=== PATIENT | male | born 1950 | race Hispanic/Latino ===

== ENCOUNTER 2017-09-11 20:25 | Emergency (ER) | payer MEDICARE ==
[~2017-09-11 20:25] MED LIST: ACAR25TA2 PO; AMLO5TAB2 PO; ASPI-1181 PO; CLOP75TA32 PO; DUTA0.5C17 PO; ENAL20TA PO; LEVO50TA4 PO; LORA1TAB3 PO; METO50TA18 PO; PANT40TA PO; SIMV40TA5 PO; SPIR25TA6 PO; SUCR1TAB2 PO; TAMS0.4C32 PO
[2017-09-11 21:06] LABS: BASOPHILS % (AUTO) 0.4 % (0.0-5.0); EOSINOPHILS % (AUTO) 0.6 % (0.0-8.0); HEMATOCRIT 39.2 % (42-54); MEAN CORPUSCULAR HEMOGLOBIN 30.4 pg (27.0-33.0); MEAN CORPUSCULAR HGB CONC 34.3 g/dL (32.0-36.0); MEAN CORPUSCULAR VOLUME 88.5 fL (79-99); MONOCYTES % (AUTO) 7.5 % (3.0-13.0); NEUTROPHILS % (AUTO) 45.5 % (40.0-77.0); PLATELET COUNT (AUTO) 224 K/uL (130-400); RED BLOOD CELL COUNT(AUTO) 4.43 MIL/uL (4.50-6.20); RED CELL DISTRIBUTION WIDTH 14.7 % (11.0-15.5); WHITE BLOOD COUNT (AUTO) 8.3 K/uL (4.8-10.8)
[2017-09-11 21:17] LABS: CREATININE 1.1 mg/dL (0.5-1.5); INR 0.98 (0.85-1.15); POTASSIUM 3.8 mmol/L (3.5-5.1); PROTHROMBIN TIME 10.3 SEC (9.6-11.6)
[2017-09-11] MEDS ORDERED: ASPIRIN 81MG TAB.CHEW ONE (21:24)
[2017-09-11 21:32] LABS: ALBUMIN 3.3 g/dL (3.5-5.0); BILIRUBIN,TOTAL 0.4 mg/dL (0.2-1.0); CREATINE KINASE MB 2.4 ng/mL (0.5-3.6); TOTAL PROTEIN, SERUM 6.9 g/dL (6.0-8.3)
== END 2017-09-12 00:37 | disposition home or self-care (01) ==
LOC: EDH 20:25
DX: S29.012A Strain of muscle and tendon of back wall of thorax, initial encounter (principal); E11.9 Type 2 diabetes mellitus without complications; E78.5 Hyperlipidemia, unspecified; I10 Essential (primary) hypertension; E07.9 Disorder of thyroid, unspecified; Z88.0 Allergy status to penicillin; Z88.6 Allergy status to analgesic agent; Z88.5 Allergy status to narcotic agent; Z88.8 Allergy status to other drugs, medicaments and biological substances; X58.XXXA Exposure to other specified factors, initial encounter; Y93.89 Activity, other specified; Y92.89 Other specified places as the place of occurrence of the external cause; Y99.8 Other external cause status
CPT/HCPCS: 36415; 71045; 80053; 82550; 82553; 83874; 84484; 85025; 85610; 85730; 93005

== ENCOUNTER → 2018-01-30 | Outpatient (CLI) | payer MEDICARE ==
[~2018-01-30] MED LIST changes: -AMLO5TAB2 PO; +AMLO5TAB7 PO
== END | disposition home or self-care (01) ==
LOC: SHCH 07:56
PROVIDERS: ATTEND Internal Medicine Cardiovascular Disease
DX: I71.4 Abdominal aortic aneurysm, without rupture (principal)
CPT/HCPCS: 93978

== ENCOUNTER 2018-12-11 22:38 | Emergency (ER) | payer MEDICARE ==
[~2018-12-11 22:38] MED LIST changes: -AMLO5TAB7 PO; +ATOR40TA69 PO; +CLOP75TA14 PO; -CLOP75TA32 PO; -ENAL20TA PO; +LISI40TA4 PO; +LORA0.5T2 PO; -LORA1TAB3 PO; +MAGN400T40 PO; +METF-444 PO; +METO25TA6 PO; -METO50TA18 PO; +NITR0.4T SL; +POTA99TA21 PO; -SIMV40TA5 PO; -SPIR25TA6 PO; +TRAM50TA4 PO
[2018-12-11 23:29] LABS: CREATININE 1.1 mg/dL (0.5-1.5); POTASSIUM 3.7 mmol/L (3.5-5.1)
[2018-12-11 23:34] LABS: BASOPHILS % (AUTO) 0.3 % (0.0-5.0); EOSINOPHILS % (AUTO) 0.8 % (0.0-8.0); LYMPHOCYTES % (AUTO) 19.1 % (21.0-51.0); MEAN CORPUSCULAR HEMOGLOBIN 29.1 pg (27.0-33.0); MEAN CORPUSCULAR HGB CONC 33.7 g/dL (32.0-36.0); MEAN CORPUSCULAR VOLUME 86.4 fL (79-99); NEUTROPHILS % (AUTO) 70.8 % (40.0-77.0); NUCLEATED RED BLOOD CELLS 0.1 % (0.0-0.19); PLATELET COUNT (AUTO) 180 K/uL (130-400); RED BLOOD CELL COUNT(AUTO) 4.17 MIL/uL (4.50-6.20); RED CELL DISTRIBUTION WIDTH 15.7 % (11.0-15.5)
[2018-12-11 23:36] LABS: ALBUMIN 3.2 g/dL (3.5-5.0); BILIRUBIN,TOTAL 0.7 mg/dL (0.2-1.0); TOTAL PROTEIN, SERUM 6.8 g/dL (6.0-8.3)
[2018-12-11] MEDS ORDERED: IOHEXOL-350 75 ML VIAL IV ONE (23:55)
[2018-12-12] MEDS ORDERED: SODIUM CHLORIDE 0.9% 1000ML 1,000 ML IV ONE (01:11)
[2018-12-12 01:55] LABS: APPEARANCE,URINE Clear (CLEAR); BILIRUBIN,URINE Negative (NEGATIVE); COLOR,URINE Yellow (YELLOW); GLUCOSE, URINE (UA) TRACE mg/dL (NEGATIVE); KETONES,URINE Negative (NEGATIVE); LEUKOCYTE ESTERASE ,URINE Negative (NEGATIVE); NITRATE,URINE Negative (NEGATIVE); OCCULT BLOOD,URINE Negative (NEGATIVE); PROTEIN,URINE Negative (NEGATIVE); UROBILINOGEN,URINE 0.2 mg/dL (0.2-1.0)
[2018-12-12 02:36] LABS: RBC,URINE None Seen /HPF (0-1)
[2018-12-12 02:37] LABS: BACTERIA,URINE Rare /HPF (None Seen); WBC,URINE 0-1 /HPF (0-1)
== END 2018-12-12 03:10 | disposition home or self-care (01) ==
LOC: EDH 22:38
DX: I97.89 Other postprocedural complications and disorders of the circulatory system, not elsewhere classified (principal); G89.18 Other acute postprocedural pain; R10.9 Unspecified abdominal pain; E11.9 Type 2 diabetes mellitus without complications; E78.5 Hyperlipidemia, unspecified; I10 Essential (primary) hypertension; E07.9 Disorder of thyroid, unspecified; Z98.890 Other specified postprocedural states; Z88.5 Allergy status to narcotic agent; Z88.0 Allergy status to penicillin; Z88.8 Allergy status to other drugs, medicaments and biological substances; Y83.8 Other surgical procedures as the cause of abnormal reaction of the patient, or of later complication, without mention of misadventure at the time of the procedure; Y82.8 Other medical devices associated with adverse incidents
CPT/HCPCS: 36415; 74177; 80053; 81001; 83690; 85025; 93005; 99285; J7030; Q9967

== ENCOUNTER 2018-12-30 08:24 | Day surgery (SDC) | payer MEDICARE ==
[~2018-12-30] VITALS: Ht 172.7 cm; Wt 131.1 kg
[2018-12-30] VITALS (11 sets, daily range): BP systolic 50–169; BP diastolic 20–100
[~2018-12-30 08:24] MED LIST changes: +SODIUM CHLORIDE 0.9% 1000ML 1,000 ML IV ONE
[2018-12-30] MEDS ORDERED: PROPOFOL 10 MG/ML 20ML VIAL IV ONE ×2 (10:47)
[2018-12-30] MEDS ORDERED: EPINEPHRINE 1 MG/ML AMPULE ONE (10:51)
[2019-01-05] MEDS ORDERED: CLOP75TA14 PO (13:39)
[2019-01-05] MEDS ORDERED: APIX5TAB PO (13:40)
[2019-01-05] MEDS ORDERED: GUAI100S13 PO (13:48)
[2019-01-05] MEDS ORDERED: PANT40TA PO (14:04)
== END 2018-12-30 12:09 | disposition home or self-care (01) ==
LOC: ENDO 08:24 → DAH 08:24 → ENDO 12:09
PROVIDERS: ATTEND Internal Medicine
DX: K31.7 Polyp of stomach and duodenum (principal); K21.9 Gastro-esophageal reflux disease without esophagitis; K31.89 Other diseases of stomach and duodenum; E11.9 Type 2 diabetes mellitus without complications; F41.9 Anxiety disorder, unspecified; F32.9 Major depressive disorder, single episode, unspecified; E03.9 Hypothyroidism, unspecified; I10 Essential (primary) hypertension; E78.5 Hyperlipidemia, unspecified; E66.9 Obesity, unspecified; I25.118 Atherosclerotic heart disease of native coronary artery with other forms of angina pectoris; N40.0 Benign prostatic hyperplasia without lower urinary tract symptoms; Z88.0 Allergy status to penicillin; Z88.5 Allergy status to narcotic agent; Z88.8 Allergy status to other drugs, medicaments and biological substances; Z86.010 Personal history of colon polyps; Z79.899 Other long term (current) drug therapy; Z79.84 Long term (current) use of oral hypoglycemic drugs; Z79.82 Long term (current) use of aspirin; Z79.01 Long term (current) use of anticoagulants; Z82.49 Family history of ischemic heart disease and other diseases of the circulatory system; Z83.3 Family history of diabetes mellitus
CPT/HCPCS: 43239; 43251; 88342; A4606; A4649; J0171; J2704 ×2; J7030; 43255; 82948; 88305

== ENCOUNTER 2019-01-14 22:59 | Emergency (ER) | payer MEDICARE ==
[~2019-01-14 22:59] MED LIST changes: +APIX5TAB PO; -ASPI-1181 PO; +GUAI100S13 PO; -LISI40TA4 PO; -METO25TA6 PO; -SODIUM CHLORIDE 0.9% 1000ML 1,000 ML IV ONE; -TRAM50TA4 PO
[2019-01-14 23:32] LABS: BASOPHILS % (AUTO) 0.8 % (0.0-5.0); EOSINOPHILS % (AUTO) 1.2 % (0.0-8.0); HEMATOCRIT 34.2 % (42-54); MEAN CORPUSCULAR HEMOGLOBIN 28.7 pg (27.0-33.0); MEAN CORPUSCULAR HGB CONC 33.5 g/dL (32.0-36.0); MEAN CORPUSCULAR VOLUME 85.9 fL (79-99); MONOCYTES % (AUTO) 7.5 % (3.0-13.0); NEUTROPHILS % (AUTO) 55.5 % (40.0-77.0); PLATELET COUNT (AUTO) 323 K/uL (130-400); RED BLOOD CELL COUNT(AUTO) 3.98 MIL/uL (4.50-6.20); RED CELL DISTRIBUTION WIDTH 15.8 % (11.0-15.5); WHITE BLOOD COUNT (AUTO) 7.3 K/uL (4.8-10.8)
[2019-01-14 23:42] LABS: CREATININE 1.2 mg/dL (0.5-1.5); POTASSIUM 4.5 mmol/L (3.5-5.1)
[2019-01-14 23:43] LABS: INR 1.02 (0.85-1.15); PARTIAL THROMBOPLASTIN TIME 26.1 SEC (26.3-35.5); PROTHROMBIN TIME 10.7 SEC (9.6-11.6)
[2019-01-14 23:47] LABS: ALBUMIN 2.9 g/dL (3.5-5.0); BILIRUBIN,TOTAL 0.2 mg/dL (0.2-1.0)
== END 2019-01-15 02:09 | disposition home or self-care (01) ==
LOC: EDH 22:59
DX: R07.89 Other chest pain (principal); E11.9 Type 2 diabetes mellitus without complications; I10 Essential (primary) hypertension; E78.5 Hyperlipidemia, unspecified; E07.9 Disorder of thyroid, unspecified; Z88.0 Allergy status to penicillin; Z88.5 Allergy status to narcotic agent; Z88.8 Allergy status to other drugs, medicaments and biological substances
CPT/HCPCS: 36415; 71045; 80053; 84484; 85025; 85610; 85730; 93005

== ENCOUNTER 2019-01-17 00:38 | Emergency (ER) | payer MEDICARE ==
[2019-01-17 01:09] LABS: BASOPHILS % (AUTO) 1.2 % (0.0-5.0); EOSINOPHILS % (AUTO) 0.6 % (0.0-8.0); HEMATOCRIT 35.4 % (42-54); MEAN CORPUSCULAR HEMOGLOBIN 28.5 pg (27.0-33.0); MEAN CORPUSCULAR HGB CONC 33.3 g/dL (32.0-36.0); MEAN CORPUSCULAR VOLUME 85.8 fL (79-99); MONOCYTES % (AUTO) 7.1 % (3.0-13.0); NEUTROPHILS % (AUTO) 56.1 % (40.0-77.0); PLATELET COUNT (AUTO) 328 K/uL (130-400); RED BLOOD CELL COUNT(AUTO) 4.13 MIL/uL (4.50-6.20); RED CELL DISTRIBUTION WIDTH 15.6 % (11.0-15.5); WHITE BLOOD COUNT (AUTO) 7.5 K/uL (4.8-10.8)
[2019-01-17 01:17] LABS: CREATININE 1.1 mg/dL (0.5-1.5); POTASSIUM 4.2 mmol/L (3.5-5.1)
[2019-01-17 01:18] LABS: APPEARANCE,URINE Clear (CLEAR); BILIRUBIN,URINE Negative (NEGATIVE); COLOR,URINE Yellow (YELLOW); GLUCOSE, URINE (UA) Negative (NEGATIVE); KETONES,URINE Negative (NEGATIVE); LEUKOCYTE ESTERASE ,URINE Negative (NEGATIVE); NITRATE,URINE Negative (NEGATIVE); OCCULT BLOOD,URINE Negative (NEGATIVE); PH,URINE 6.5 (5.0-8.0); PROTEIN,URINE Negative (NEGATIVE); UROBILINOGEN,URINE 0.2 mg/dL (0.2-1.0)
[2019-01-17 01:22] LABS: BILIRUBIN,TOTAL 0.3 mg/dL (0.2-1.0); TOTAL PROTEIN, SERUM 7.1 g/dL (6.0-8.3)
[2019-01-17 01:24] LABS: INR 1.03 (0.85-1.15); PARTIAL THROMBOPLASTIN TIME 26.6 SEC (26.3-35.5); PROTHROMBIN TIME 10.8 SEC (9.6-11.6)
[2019-01-17 01:33] LABS: B-TYPE NATRIURETIC PEPTIDE 36 pg/mL (0-100)
== END 2019-01-17 03:56 | disposition home or self-care (01) ==
LOC: EDH 00:38
DX: S30.1XXA Contusion of abdominal wall, initial encounter (principal); E11.65 Type 2 diabetes mellitus with hyperglycemia; I72.3 Aneurysm of iliac artery; E78.5 Hyperlipidemia, unspecified; I10 Essential (primary) hypertension; E07.9 Disorder of thyroid, unspecified; Z86.711 Personal history of pulmonary embolism; X58.XXXA Exposure to other specified factors, initial encounter; Y93.89 Activity, other specified; Y92.89 Other specified places as the place of occurrence of the external cause; Y99.8 Other external cause status
CPT/HCPCS: 36415; 71045; 74176; 80053; 81003; 82150; 82550; 83880; 84484; 85025; 85610; 85730; 93005

== ENCOUNTER → 2019-01-21 | Outpatient (CLI) | payer MEDICARE ==
[~2019-01-21] MED LIST changes: +DIATR MEGLU/DIATRIZOATE SODIUM 30 ML BOTTLE ONE
== END | disposition home or self-care (01) ==
LOC: RAH 08:30
PROVIDERS: ATTEND Internal Medicine
DX: R93.3 Abnormal findings on diagnostic imaging of other parts of digestive tract (principal)
CPT/HCPCS: 74250; Q9963

== ENCOUNTER → 2019-03-17 | Outpatient (CLI) | payer MEDICARE ==
[~2019-03-17] VITALS: Ht 172.7 cm; Wt 129.3 kg
[~2019-03-17] MED LIST changes: -DIATR MEGLU/DIATRIZOATE SODIUM 30 ML BOTTLE ONE; +REGADENOSON 0.4 MG/5 ML PF SYG IVP SCH
== END | disposition home or self-care (01) ==
LOC: SHCH 08:46
PROVIDERS: ATTEND Internal Medicine Cardiovascular Disease
DX: I25.9 Chronic ischemic heart disease, unspecified (principal); I25.10 Atherosclerotic heart disease of native coronary artery without angina pectoris
CPT/HCPCS: 78452; 93017; 96374; A9500 ×2; J2785

== ENCOUNTER → 2019-04-03 | Outpatient (CLI) | payer MEDICARE ==
[~2019-04-03] MED LIST changes: +IOHEXOL 350 MG/ML 100ML INFUS..BTL IV ONE; -REGADENOSON 0.4 MG/5 ML PF SYG IVP SCH
== END | disposition home or self-care (01) ==
LOC: RAH 08:35
PROVIDERS: ATTEND Internal Medicine Cardiovascular Disease
DX: I71.4 Abdominal aortic aneurysm, without rupture (principal); I73.9 Peripheral vascular disease, unspecified
CPT/HCPCS: 75635; Q9967

== ENCOUNTER → 2020-02-05 | Outpatient (CLI) | payer OTHER, MEDICARE ==
[~2020-02-05] MED LIST changes: -DUTA0.5C17 PO; +DUTA0.5C18 PO
== END | disposition home or self-care (01) ==
LOC: RAH 08:00
PROVIDERS: ATTEND Family Medicine
DX: I51.7 Cardiomegaly (principal); J98.11 Atelectasis; R79.89 Other specified abnormal findings of blood chemistry
CPT/HCPCS: 71275; Q9967

== ENCOUNTER → 2020-02-22 | Outpatient (CLI) | payer OTHER, MEDICARE | END | disposition home or self-care (01) | LOC: RAH 09:29 | PROVIDERS: ATTEND Internal Medicine Gastroenterology | DX: R93.3 Abnormal findings on diagnostic imaging of other parts of digestive tract (principal) | CPT/HCPCS: 74170; Q9967 ==

== ENCOUNTER 2021-02-14 16:55 | Observation (INO) | payer OTHER, MEDICARE ==
[~2021-02-14] VITALS: Ht 167.6 cm; Wt 133.9 kg
[~2021-02-14 16:55] MED LIST changes: -DUTA0.5C18 PO; +DUTA0.5C37 PO; -IOHEXOL 350 MG/ML 100ML INFUS..BTL IV ONE
[2021-02-14] MEDS ORDERED: ASPIRIN 325MG TAB PO ONE (20:30)
[2021-02-14] MEDS ORDERED: NITROGLYCERIN 1GM OINT 1 INCH/1GM TD ONE (20:30)
[2021-02-14 20:42] LABS: BASOPHILS % (AUTO) 0.4 % (0.0-5.0); EOSINOPHILS % (AUTO) 0.6 % (0.0-8.0); HEMATOCRIT 41.6 % (42-54); LYMPHOCYTES % (AUTO) 37.5 % (21.0-51.0); MEAN CORPUSCULAR HEMOGLOBIN 30.6 pg (27.0-33.0); MEAN CORPUSCULAR HGB CONC 34.4 g/dL (32.0-36.0); MEAN CORPUSCULAR VOLUME 89.1 fL (79-99); MONOCYTES % (AUTO) 8.9 % (3.0-13.0); NEUTROPHILS % (AUTO) 52.4 % (40.0-77.0); PLATELET COUNT (AUTO) 222 K/uL (130-400); RED BLOOD CELL COUNT(AUTO) 4.67 MIL/uL (4.50-6.20); RED CELL DISTRIBUTION WIDTH 13.5 % (11.0-15.5); WHITE BLOOD COUNT (AUTO) 8.2 K/uL (4.8-10.8)
[2021-02-14 20:54] LABS: CREATININE 0.9 mg/dL (0.5-1.5); POTASSIUM 3.9 mmol/L (3.5-5.1)
[2021-02-14 20:55] LABS: PROTHROMBIN TIME 10.9 SEC (9.6-11.6)
[2021-02-14 20:56] LABS: PARTIAL THROMBOPLASTIN TIME 24.8 SEC (26.3-35.5)
[2021-02-14 20:58] LABS: ALBUMIN 3.5 g/dL (3.5-5.0); BILIRUBIN,TOTAL 0.4 mg/dL (0.2-1.0); MAGNESIUM 1.3 mg/dL (1.80-2.40); TOTAL PROTEIN, SERUM 7.3 g/dL (6.0-8.3)
[2021-02-14 21:04] LABS: B-TYPE NATRIURETIC PEPTIDE 63 pg/mL (0-100)
[2021-02-14] MEDS ORDERED: MAG/ALUM/SIMETH 30 ML UDCUP PO PRN (22:30)
[2021-02-14] MEDS ORDERED: ZOLPIDEM TARTRATE 5 MG TAB PO PRN (22:30)
[2021-02-14] MEDS ORDERED: ACETAMINOPHEN 325 MG TAB PO PRN ×2 (22:30)
[2021-02-14] MEDS ORDERED: KCL 20 MEQ ERTAB PO PRN (22:30)
[2021-02-14] MEDS ORDERED: LACTULOSE 20 GM/30 ML UDCUP PO PRN (22:30)
[2021-02-14] MEDS ORDERED: GLUCAGON 1MG KIT 1 MG ML IM PRN (22:30)
[2021-02-14] MEDS ORDERED: POTASSIUM CHLORIDE 10% ELIXIR 20 MEQ/15 ML UDCUP PO PRN (22:30)
[2021-02-14] MEDS ORDERED: HYDRALAZINE HCL 10 MG TABLET PO PRN (22:30)
[2021-02-14] MEDS ORDERED: ONDANSETRON 4MG INJ IV PRN (22:30)
[2021-02-14] MEDS ORDERED: NITROGLYCERIN 0.4 MG SL TAB SL PRN (22:30)
[2021-02-14] MEDS ORDERED: DEXTROSE 50%-WATER 50 ML DISP.SYRIN IV PRN (22:30)
[2021-02-14] MEDS ORDERED: GUAIFENESIN-DM 200/20 MG 10 ML PO PRN (22:30)
[2021-02-14] MEDS ORDERED: POTASSIUM CHLORIDE 20MEQ/100ML 100 ML IV PRN (22:30)
[2021-02-15] MEDS ORDERED: LORAZEPAM 0.5 MG TABLET PO PRN (00:30)
[2021-02-15] MEDS ORDERED: LISI10TA24 PO (00:40)
[2021-02-15] MEDS ORDERED: METO25TA6 PO (00:40)
[2021-02-15] MEDS ORDERED: MECL-226 PO (00:40)
[2021-02-15] MEDS ORDERED: AEC81 PO (00:40)
[2021-02-15 02:35] VITALS: BP 131/74
[2021-02-15 06:05] LABS: BASOPHILS % (AUTO) 0.5 % (0.0-5.0); HEMATOCRIT 39.8 % (42-54); LYMPHOCYTES % (AUTO) 40.3 % (21.0-51.0); MEAN CORPUSCULAR HEMOGLOBIN 29.9 pg (27.0-33.0); MEAN CORPUSCULAR HGB CONC 33.9 g/dL (32.0-36.0); MEAN CORPUSCULAR VOLUME 88.2 fL (79-99); MONOCYTES % (AUTO) 8.6 % (3.0-13.0); NEUTROPHILS % (AUTO) 49.3 % (40.0-77.0); PLATELET COUNT (AUTO) 218 K/uL (130-400); RED BLOOD CELL COUNT(AUTO) 4.51 MIL/uL (4.50-6.20); RED CELL DISTRIBUTION WIDTH 13.7 % (11.0-15.5); WHITE BLOOD COUNT (AUTO) 7.7 K/uL (4.8-10.8)
[2021-02-15] MEDS: INSULIN HUMULIN R 100 UNIT/ML 3ML SQ SCH ×2 (06:14→12:14)
[2021-02-15 06:23] LABS: ALBUMIN 3.2 g/dL (3.5-5.0); BILIRUBIN,TOTAL 0.6 mg/dL (0.2-1.0); CREATININE 0.8 mg/dL (0.5-1.5); POTASSIUM 3.5 mmol/L (3.5-5.1); TOTAL PROTEIN, SERUM 6.7 g/dL (6.0-8.3)
[2021-02-15] MEDS ORDERED: LEVOTHYROXINE 50 MCG TABLET PO SCH (06:30)
[2021-02-15 07:36] LABS: HEMOGLOBIN A1C 7.5 % (4.0-6.0)
[2021-02-15 07:40] VITALS: BP 146/82
[2021-02-15] MEDS ORDERED: NITROGLYCERIN 0.4 MG SL TAB SL SCH (08:30)
[2021-02-15] MEDS ORDERED: MECLIZINE HCL 12.5 MG TABLET PO PRN (08:30)
[2021-02-15] MEDS ORDERED: METOPROLOL TARTRATE 25 MG TAB PO SCH (09:00)
[2021-02-15] MEDS ORDERED: NON-FORMULARY MEDICATION 1 EACH (Dutasteride 0.5 MG) PO SCH (09:00)
[2021-02-15] MEDS ORDERED: SUCRALFATE 1 GM TABLET PO SCH (09:00)
[2021-02-15] MEDS ORDERED: LISINOPRIL 10 MG TABLET PO SCH (09:00)
[2021-02-15] MEDS ORDERED: FAMOTIDINE 20MG VIAL IV SCH (09:00)
[2021-02-15] MEDS ORDERED: PANTOPRAZOLE 40 MG TAB DR PO SCH (09:00)
[2021-02-15] MEDS ORDERED: TAMSULOSIN HCL 0.4 MG CAP.ER.24H PO SCH (09:00)
[2021-02-15] MEDS ORDERED: ENOXAPARIN SODIUM 30 MG/0.3 ML SQ SCH (09:00)
[2021-02-15] MEDS ORDERED: ASPIRIN 81 MG EC TAB PO SCH (09:00)
[2021-02-15] MEDS ORDERED: METFORMIN HCL 500 MG TABLET PO SCH (09:00)
[2021-02-15] MEDS ORDERED: ATORVASTATIN 40 MG TABLET PO SCH (09:00)
[2021-02-15] MEDS ORDERED: ACARBOSE 25 MG TABLET PO SCH (09:00)
[2021-02-15] MEDS ORDERED: MAGNESIUM OXIDE 400 MG TABLET PO SCH (09:00)
[2021-02-15] MEDS ORDERED: CYCL10 PO (11:09)
[2021-02-15] MEDS ORDERED: MELO10CA3 PO (11:09)
[2021-02-15 11:40] VITALS: BP 155/88
[2021-02-15] MEDS ORDERED: FINASTERIDE 5 MG TABLET PO SCH (21:00)
== END 2021-02-15 14:30 | disposition home or self-care (01) ==
LOC: EDH 16:55 → EDHIP 21:59 → 3DH 02-15 02:35
PROVIDERS: ADMIT Internal Medicine; ATTEND Internal Medicine
DX: R07.89 Other chest pain (principal); I25.110 Atherosclerotic heart disease of native coronary artery with unstable angina pectoris; E11.9 Type 2 diabetes mellitus without complications; I10 Essential (primary) hypertension; G47.33 Obstructive sleep apnea (adult) (pediatric); E78.5 Hyperlipidemia, unspecified; E78.00 Pure hypercholesterolemia, unspecified; E83.42 Hypomagnesemia; E66.01 Morbid (severe) obesity due to excess calories; M19.90 Unspecified osteoarthritis, unspecified site; Z88.0 Allergy status to penicillin; Z79.899 Other long term (current) drug therapy; Z79.01 Long term (current) use of anticoagulants; Z79.82 Long term (current) use of aspirin; Z79.84 Long term (current) use of oral hypoglycemic drugs; Z79.890 Hormone replacement therapy; Z95.1 Presence of aortocoronary bypass graft; Z79.02 Long term (current) use of antithrombotics/antiplatelets
CPT/HCPCS: 36415 ×2; 71045; 80053 ×2; 82550; 82948 ×2; 83036; 83735; 83880; 84443; 84484 ×3; 85025 ×2; 85610; 85730; 93005 ×4; 96372; 99285; G0378 ×16; J1650; J1815

== ENCOUNTER → 2021-02-27 | Outpatient (CLI) | payer OTHER, MEDICARE ==
[~2021-02-27] MED LIST changes: +AEC81 PO; -APIX5TAB PO; -CLOP75TA14 PO; +CYCL10 PO; -GUAI100S13 PO; +LISI10TA24 PO; +MECL-226 PO; +MELO10CA3 PO; +METO25TA6 PO
== END | disposition home or self-care (01) ==
LOC: RAH 11:08
PROVIDERS: ATTEND Family Medicine
DX: N50.3 Cyst of epididymis (principal); N50.9 Disorder of male genital organs, unspecified; N50.89 Other specified disorders of the male genital organs
CPT/HCPCS: 76870

== ENCOUNTER → 2021-05-22 | Outpatient (CLI) | payer OTHER, MEDICARE ==
[~2021-05-22] MED LIST changes: -CYCL10 PO; +CYCL10TA16 PO; +GADOTERATE MEGLUMINE 10 MMOL/20 ML VIAL IV ONE; -POTA99TA21 PO; +POTA99TA26 PO
== END | disposition home or self-care (01) ==
LOC: RAH 07:34
PROVIDERS: ATTEND Urology
DX: N50.89 Other specified disorders of the male genital organs (principal); N43.3 Hydrocele, unspecified
CPT/HCPCS: 72197; A9575

== ENCOUNTER → 2021-06-19 | Outpatient (CLI) | payer OTHER, MEDICARE ==
[~2021-06-19] MED LIST changes: -GADOTERATE MEGLUMINE 10 MMOL/20 ML VIAL IV ONE
[2021-06-19] MEDS: REGADENOSON 0.4 MG/5 ML PF SYG IVP SCH (09:40)
== END | disposition home or self-care (01) ==
LOC: SHCH 08:57
PROVIDERS: ATTEND Internal Medicine Cardiovascular Disease
DX: R07.9 Chest pain, unspecified (principal); R94.31 Abnormal electrocardiogram [ECG] [EKG]; R94.39 Abnormal result of other cardiovascular function study
CPT/HCPCS: 78452; 93017; 96374; A9500 ×2; J2785

== ENCOUNTER 2021-08-13 08:44 | Observation (INO) | payer OTHER, MEDICARE ==
[~2021-08-13] VITALS: Ht 172.7 cm; Wt 134.7 kg
[2021-08-13 09:01] LABS: BASOPHILS % (AUTO) 0.4 % (0.0-5.0); EOSINOPHILS % (AUTO) 1.4 % (0.0-8.0); HEMATOCRIT 41.1 % (42-54); LYMPHOCYTES % (AUTO) 52.9 % (21.0-51.0); MEAN CORPUSCULAR HEMOGLOBIN 28.9 pg (27.0-33.0); MEAN CORPUSCULAR HGB CONC 32.8 g/dL (32.0-36.0); MONOCYTES % (AUTO) 9.2 % (3.0-13.0); NEUTROPHILS % (AUTO) 35.8 % (40.0-77.0); PLATELET COUNT (AUTO) 198 K/uL (130-400); RED BLOOD CELL COUNT(AUTO) 4.67 MIL/uL (4.50-6.20); RED CELL DISTRIBUTION WIDTH 13.5 % (11.0-15.5); WHITE BLOOD COUNT (AUTO) 7.8 K/uL (4.8-10.8)
[2021-08-13 09:20] LABS: CREATININE 0.9 mg/dL (0.5-1.5)
[2021-08-13] MEDS: ASPIRIN 81MG CHEW TAB PO SCH (09:21)
[2021-08-13 09:25] LABS: ALBUMIN 3.4 g/dL (3.5-5.0); BILIRUBIN,TOTAL 0.4 mg/dL (0.2-1.0); TOTAL PROTEIN, SERUM 6.4 g/dL (6.0-8.3)
[2021-08-13 09:28] LABS: APPEARANCE,URINE Clear (CLEAR); BILIRUBIN,URINE Negative (NEGATIVE); COLOR,URINE Yellow (YELLOW); GLUCOSE, URINE (UA) Negative (NEGATIVE); KETONES,URINE Negative (NEGATIVE); LEUKOCYTE ESTERASE ,URINE Negative (NEGATIVE); NITRATE,URINE Negative (NEGATIVE); OCCULT BLOOD,URINE Negative (NEGATIVE); PH,URINE 6.5 (5.0-8.0); PROTEIN,URINE POS 1+ mg/dL (NEGATIVE); UROBILINOGEN,URINE 0.2 mg/dL (0.2-1.0)
[2021-08-13] MEDS ORDERED: NITROGLYCERIN 1GM OINT 1 INCH/1GM TD ONE (09:30)
[2021-08-13 09:43] LABS: B-TYPE NATRIURETIC PEPTIDE 104 pg/mL (0-100)
[2021-08-13 09:44] LABS: RBC,URINE None Seen /HPF (0-1); WBC,URINE 0-1 /HPF (0-1)
[2021-08-13 09:45] LABS: BACTERIA,URINE Rare /HPF (None Seen)
[2021-08-13] MEDS ORDERED: ACETAMINOPHEN 325 MG TAB PO PRN (12:00)
[2021-08-13] MEDS ORDERED: ONDANSETRON 4MG INJ IV PRN (12:00)
[2021-08-13] MEDS ORDERED: ISOS20TA85 PO (12:09)
[2021-08-13] MEDS ORDERED: DOXY100C5 PO (12:09)
[2021-08-13] MEDS ORDERED: BENZ-70 PO (12:09)
[2021-08-13] MEDS ORDERED: METF-890 PO (12:09)
[2021-08-13 12:11] LABS: HEMOGLOBIN A1C 7.8 % (4.0-6.0)
[2021-08-13] MEDS ORDERED: MECLIZINE HCL 12.5 MG TABLET PO PRN (14:00)
[2021-08-13 16:00] VITALS: BP 127/66
[2021-08-13] MEDS: METOPROLOL TARTRATE 50 MG TAB PO SCH (19:47)
[2021-08-13] MEDS: FAMOTIDINE 20MG VIAL IV SCH (19:47)
[2021-08-13] MEDS: ATORVASTATIN 40 MG TABLET PO SCH (19:47)
[2021-08-13] MEDS: ACETAMINOPHEN 325 MG TAB PO PRN (19:48)
[2021-08-13] MEDS: LORAZEPAM 0.5 MG TABLET PO PRN (19:55)
[2021-08-13 20:10] VITALS: BP 172/92
[2021-08-13 20:46] VITALS: BP 152/71
[2021-08-13 23:26] VITALS: BP 144/96
[2021-08-14 03:42] VITALS: BP 135/80
[2021-08-14] MEDS: ACETAMINOPHEN 325 MG TAB PO PRN ×2 (04:36→11:40)
[2021-08-14 05:34] LABS: BASOPHILS % (AUTO) 0.5 % (0.0-5.0); EOSINOPHILS % (AUTO) 1.9 % (0.0-8.0); HEMATOCRIT 39.3 % (42-54); LYMPHOCYTES % (AUTO) 45.5 % (21.0-51.0); MEAN CORPUSCULAR HEMOGLOBIN 29.1 pg (27.0-33.0); MEAN CORPUSCULAR HGB CONC 32.8 g/dL (32.0-36.0); MEAN CORPUSCULAR VOLUME 88.7 fL (79-99); MONOCYTES % (AUTO) 11.1 % (3.0-13.0); NEUTROPHILS % (AUTO) 40.8 % (40.0-77.0); PLATELET COUNT (AUTO) 193 K/uL (130-400); RED BLOOD CELL COUNT(AUTO) 4.43 MIL/uL (4.50-6.20); RED CELL DISTRIBUTION WIDTH 13.5 % (11.0-15.5); WHITE BLOOD COUNT (AUTO) 6.4 K/uL (4.8-10.8)
[2021-08-14] MEDS: LEVOTHYROXINE 50 MCG TABLET PO SCH (05:53)
[2021-08-14 06:08] LABS: B-TYPE NATRIURETIC PEPTIDE 77 pg/mL (0-100)
[2021-08-14 06:13] LABS: ALBUMIN 2.9 g/dL (3.5-5.0); BILIRUBIN,TOTAL 0.5 mg/dL (0.2-1.0); CREATININE 0.9 mg/dL (0.5-1.5); POTASSIUM 3.8 mmol/L (3.5-5.1); TOTAL PROTEIN, SERUM 6.3 g/dL (6.0-8.3)
[2021-08-14 07:04] LABS: ERYTHROCYTE SEDIMENTATION RATE 9 MM/HR (0-20)
[2021-08-14 07:30] VITALS: BP 162/89
[2021-08-14] MEDS: LISINOPRIL 10 MG TABLET PO SCH (09:31)
[2021-08-14] MEDS: METOPROLOL TARTRATE 50 MG TAB PO SCH ×2 (09:31→22:30)
[2021-08-14] MEDS: FAMOTIDINE 20MG VIAL IV SCH ×2 (09:31→22:30)
[2021-08-14] MEDS: ISOSORBIDE MONONITRATE 20 MG TABLET PO SCH (09:31)
[2021-08-14] MEDS: TAMSULOSIN HCL 0.4 MG CAP.ER.24H PO SCH (09:32)
[2021-08-14] MEDS: ENOXAPARIN SODIUM 40 MG/0.4 ML SYRINGE SQ SCH (09:32)
[2021-08-14] MEDS: ASPIRIN 81MG CHEW TAB PO SCH (09:33)
[2021-08-14 11:30] VITALS: BP 121/67
[2021-08-14 16:00] VITALS: BP 117/55
[2021-08-14 20:00] VITALS: BP 151/68
[2021-08-14] MEDS: ATORVASTATIN 40 MG TABLET PO SCH (22:30)
[2021-08-14] MEDS: LORAZEPAM 0.5 MG TABLET PO PRN (22:37)
[2021-08-15] VITALS: BP 109/69
[2021-08-15 04:00] VITALS: BP 133/78
[2021-08-15 05:01] LABS: HEMATOCRIT 39.7 % (42-54); MEAN CORPUSCULAR HEMOGLOBIN 29.7 pg (27.0-33.0); MEAN CORPUSCULAR VOLUME 87.4 fL (79-99); RED BLOOD CELL COUNT(AUTO) 4.54 MIL/uL (4.50-6.20); RED CELL DISTRIBUTION WIDTH 13.5 % (11.0-15.5); WHITE BLOOD COUNT (AUTO) 6.4 K/uL (4.8-10.8)
[2021-08-15 05:09] LABS: CREATININE 0.8 mg/dL (0.5-1.5)
[2021-08-15] MEDS: LEVOTHYROXINE 50 MCG TABLET PO SCH (05:51)
[2021-08-15 07:30] VITALS: BP 141/63
[2021-08-15] MEDS: LISINOPRIL 10 MG TABLET PO SCH (09:49)
[2021-08-15] MEDS: TAMSULOSIN HCL 0.4 MG CAP.ER.24H PO SCH (09:50)
[2021-08-15] MEDS: ISOSORBIDE MONONITRATE 20 MG TABLET PO SCH (09:50)
[2021-08-15] MEDS: METOPROLOL TARTRATE 50 MG TAB PO SCH (09:50)
[2021-08-15] MEDS: ASPIRIN 81MG CHEW TAB PO SCH (09:51)
[2021-08-15] MEDS: FAMOTIDINE 20MG VIAL IV SCH (09:52)
[2021-08-15] MEDS: ENOXAPARIN SODIUM 40 MG/0.4 ML SYRINGE SQ SCH (09:53)
[2021-08-15 11:00] VITALS: BP 118/67
== END 2021-08-15 12:45 | disposition home or self-care (01) ==
LOC: EDH 08:44 → EDHIP 11:41 → INTOOBSV 11:41 → 3BH 16:13
PROVIDERS: ADMIT Hospitalist; ATTEND Hospitalist
DX: I25.110 Atherosclerotic heart disease of native coronary artery with unstable angina pectoris (principal); E11.65 Type 2 diabetes mellitus with hyperglycemia; I71.4 Abdominal aortic aneurysm, without rupture; E78.5 Hyperlipidemia, unspecified; I10 Essential (primary) hypertension; I25.2 Old myocardial infarction; E78.00 Pure hypercholesterolemia, unspecified; Z88.0 Allergy status to penicillin; Z79.899 Other long term (current) drug therapy; Z79.82 Long term (current) use of aspirin; Z86.79 Personal history of other diseases of the circulatory system; Z95.1 Presence of aortocoronary bypass graft
CPT/HCPCS: 36415 ×3; 71045; 80048; 80053 ×2; 81001; 82948 ×8; 83036; 83880 ×2; 84484 ×4; 85025 ×2; 85027; 85651; 93005 ×5; 93306; 93356; 96372 ×2; 96374; 96376 ×2; 99285; G0378 ×3; J1650 ×2; J3490 ×4

== ENCOUNTER 2021-10-03 10:21 | Emergency (ER) | payer OTHER, MEDICARE ==
[~2021-10-03] VITALS: Ht 172.7 cm; Wt 130.6 kg
[~2021-10-03 10:21] MED LIST changes: +BENZ-70 PO; -CYCL10TA16 PO; +DOXY100C5 PO; +ISOS20TA85 PO; -MELO10CA3 PO; -METF-444 PO; +METF-890 PO; -POTA99TA26 PO; -SUCR1TAB2 PO
[2021-10-03] MEDS: ASPIRIN 81MG CHEW TAB PO ONE (10:52)
[2021-10-03 10:53] LABS: BASOPHILS % (AUTO) 0.3 % (0.0-5.0); EOSINOPHILS % (AUTO) 0.4 % (0.0-8.0); HEMATOCRIT 43.1 % (42-54); LYMPHOCYTES % (AUTO) 31.9 % (21.0-51.0); MEAN CORPUSCULAR HGB CONC 32.9 g/dL (32.0-36.0); MONOCYTES % (AUTO) 10.4 % (3.0-13.0); NEUTROPHILS % (AUTO) 56.6 % (40.0-77.0); PLATELET COUNT (AUTO) 220 K/uL (130-400); RED CELL DISTRIBUTION WIDTH 13.7 % (11.0-15.5); WHITE BLOOD COUNT (AUTO) 7.2 K/uL (4.8-10.8)
[2021-10-03 10:57] LABS: APPEARANCE,URINE Clear (CLEAR); BILIRUBIN,URINE Negative (NEGATIVE); COLOR,URINE Yellow (YELLOW); GLUCOSE, URINE (UA) Negative (NEGATIVE); KETONES,URINE Negative (NEGATIVE); LEUKOCYTE ESTERASE ,URINE Trace (NEGATIVE); NITRATE,URINE Negative (NEGATIVE); OCCULT BLOOD,URINE Negative (NEGATIVE); PH,URINE 5.5 (5.0-8.0); PROTEIN,URINE POS 1+ mg/dL (NEGATIVE)
[2021-10-03 11:00] LABS: CREATININE 1.1 mg/dL (0.5-1.5); POTASSIUM 4.2 mmol/L (3.5-5.1)
[2021-10-03 11:05] LABS: BARBITURATE SCREEN, URINE NEGATIVE (NEGATIVE); BENZODIAZEPINES SCREEN,URINE NEGATIVE (NEGATIVE); CANNABINOID SCREEN,URINE NEGATIVE (NEGATIVE); COCAINE SCREEN,URINE NEGATIVE (NEGATIVE); OPIATE SCREEN,URINE NEGATIVE (NEGATIVE); PHENCYCLIDINE SCREEN,URINE NEGATIVE (NEGATIVE)
[2021-10-03 11:10] LABS: ALBUMIN 3.5 g/dL (3.5-5.0); MAGNESIUM 1.4 mg/dL (1.80-2.40); TOTAL PROTEIN, SERUM 7.2 g/dL (6.0-8.3)
[2021-10-03 11:12] LABS: AMPHET/METH SCREEN,URINE NEGATIVE (NEGATIVE)
[2021-10-03 11:16] LABS: B-TYPE NATRIURETIC PEPTIDE 45 pg/mL (0-100)
[2021-10-03 11:21] LABS: BACTERIA,URINE Rare /HPF (None Seen); RBC,URINE None Seen /HPF (0-1); SQUAMOUS EPITHELIAL CELL,UR 0-2 /HPF (0-2); WBC,URINE None Seen /HPF (0-1)
[2021-10-03] MEDS: MAG/ALUM/SIMETH 30 ML UDCUP PO ONE (11:53)
[2021-10-03] MEDS: DICYCLOMINE HCL 10 MG/5 ML ML PO ONE (11:53)
[2021-10-03] MEDS: LIDOCAINE HCL 2% VISCOUS 15 ML UDCUP PO ONE (11:53)
[2021-10-03 12:17] LABS: INR 0.94 (0.85-1.15); PARTIAL THROMBOPLASTIN TIME 25.1 SEC (26.3-35.5); PROTHROMBIN TIME 10.3 SEC (9.6-11.6)
[2021-10-03] MEDS ORDERED: IOHEXOL-350 75 ML VIAL IV ONE (12:31)
[2021-10-03] MEDS ORDERED: MAGNESIUM 2GM PREMIX 50ML 50 ML IV STA (13:38)
[2021-10-03] MEDS ORDERED: DEXL60CA3 PO (14:22)
[2021-10-03] MEDS: MAGNESIUM OXIDE 400 MG TABLET PO SCH (14:26)
[2021-10-03] MEDS: MAGNESIUM OXIDE 400 MG TABLET PO ONE (14:26)
[2021-10-03 14:33] VITALS: BP 117/55
== END 2021-10-03 14:46 | disposition home or self-care (01) ==
LOC: EDH 10:21
DX: K21.9 Gastro-esophageal reflux disease without esophagitis (principal); I25.10 Atherosclerotic heart disease of native coronary artery without angina pectoris; E11.9 Type 2 diabetes mellitus without complications; E78.00 Pure hypercholesterolemia, unspecified; I10 Essential (primary) hypertension; I25.2 Old myocardial infarction; Z88.0 Allergy status to penicillin; Z88.5 Allergy status to narcotic agent; Z88.6 Allergy status to analgesic agent; Z79.899 Other long term (current) drug therapy; Z79.82 Long term (current) use of aspirin; Z79.84 Long term (current) use of oral hypoglycemic drugs; Z98.890 Other specified postprocedural states
CPT/HCPCS: 36415; 71045; 71275; 80053; 80061; 80305; 81001; 82550; 83735; 83874; 83880; 84484; 85025; 85378; 85610; 85730; 93005; 99285; Q9967

== ENCOUNTER 2021-12-19 07:48 | Emergency (ER) | payer OTHER, MEDICARE ==
[~2021-12-19] VITALS: Ht 172.7 cm; Wt 127.5 kg
[~2021-12-19 07:48] MED LIST changes: +ACET-66 PO; +DEXL60CA3 PO
[2021-12-19 08:35] LABS: BASOPHILS % (AUTO) 0.6 % (0.0-5.0); EOSINOPHILS % (AUTO) 1.5 % (0.0-8.0); HEMATOCRIT 38.2 % (42-54); MEAN CORPUSCULAR HEMOGLOBIN 30.3 pg (27.0-33.0); MEAN CORPUSCULAR HGB CONC 34.6 g/dL (32.0-36.0); MEAN CORPUSCULAR VOLUME 87.8 fL (79-99); MONOCYTES % (AUTO) 9.7 % (3.0-13.0); NEUTROPHILS % (AUTO) 47.8 % (40.0-77.0); PLATELET COUNT (AUTO) 191 K/uL (130-400); RED BLOOD CELL COUNT(AUTO) 4.35 MIL/uL (4.50-6.20); RED CELL DISTRIBUTION WIDTH 14.2 % (11.0-15.5); WHITE BLOOD COUNT (AUTO) 5.4 K/uL (4.8-10.8)
[2021-12-19 09:10] LABS: ALBUMIN 3.2 g/dL (3.5-5.0); POTASSIUM 3.5 mmol/L (3.5-5.1); TOTAL PROTEIN, SERUM 6.5 g/dL (6.0-8.3)
[2021-12-19 10:26] VITALS: BP 137/68
== END 2021-12-19 10:40 | disposition home or self-care (01) ==
LOC: EDH 07:48
DX: F41.9 Anxiety disorder, unspecified (principal); E03.9 Hypothyroidism, unspecified; E11.9 Type 2 diabetes mellitus without complications; I10 Essential (primary) hypertension; K21.9 Gastro-esophageal reflux disease without esophagitis; Z79.82 Long term (current) use of aspirin; Z79.899 Other long term (current) drug therapy; Z88.0 Allergy status to penicillin; Z88.5 Allergy status to narcotic agent; Z95.1 Presence of aortocoronary bypass graft; Z95.5 Presence of coronary angioplasty implant and graft
CPT/HCPCS: 36415; 80053; 84484; 85025; 93005

== ENCOUNTER 2022-02-02 07:24 | Observation (INO) | payer OTHER, MEDICARE ==
[~2022-02-02] VITALS: Ht 172.7 cm; Wt 120.8 kg
[2022-02-02] MEDS ORDERED: NITROGLYCERIN 1GM OINT 1 INCH/1GM TD ONE ×3 (07:32→10:00)
[2022-02-02] MEDS ORDERED: ASPIRIN 325MG TAB ONE (07:32)
[2022-02-02 07:44] LABS: BASOPHILS % (AUTO) 0.4 % (0.0-5.0); HEMATOCRIT 43.8 % (42-54); LYMPHOCYTES % (AUTO) 60.1 % (21.0-51.0); MEAN CORPUSCULAR HEMOGLOBIN 31.6 pg (27.0-33.0); MEAN CORPUSCULAR HGB CONC 32.6 g/dL (32.0-36.0); MEAN CORPUSCULAR VOLUME 96.7 fL (79-99); NEUTROPHILS % (AUTO) 29.2 % (40.0-77.0); PLATELET COUNT (AUTO) 152 K/uL (130-400); RED BLOOD CELL COUNT(AUTO) 4.53 MIL/uL (4.50-6.20); RED CELL DISTRIBUTION WIDTH 18.2 % (11.0-15.5); WHITE BLOOD COUNT (AUTO) 7.2 K/uL (4.8-10.8)
[2022-02-02] MEDS ORDERED: ASPIRIN 325MG TAB PO ONE (08:00)
[2022-02-02 08:05] LABS: APPEARANCE,URINE CLEAR (CLEAR); BILIRUBIN,URINE NEGATIVE (NEGATIVE); COLOR,URINE YELLOW (YELLOW); GLUCOSE, URINE (UA) NEGATIVE (NEGATIVE); KETONES,URINE NEGATIVE (NEGATIVE); LEUKOCYTE ESTERASE ,URINE NEGATIVE Leu/uL (NEGATIVE); NITRATE,URINE NEGATIVE (NEGATIVE); OCCULT BLOOD,URINE NEGATIVE (NEGATIVE); PROTEIN,URINE 70 mg/dL (NEGATIVE)
[2022-02-02 08:21] LABS: B-TYPE NATRIURETIC PEPTIDE 43 pg/mL (0-100)
[2022-02-02 08:31] LABS: ALBUMIN 3.2 g/dL (3.5-5.0); POTASSIUM 4.2 mmol/L (3.5-5.1); TOTAL PROTEIN, SERUM 7.1 g/dL (6.0-8.3)
[2022-02-02] MEDS ORDERED: FENTANYL CITRATE PF 50 MCG/1 ML 2ML VIAL ONE (08:39)
[2022-02-02] MEDS ORDERED: MAGNESIUM OXIDE 400 MG TABLET PO ONE ×2 (08:57→09:00)
[2022-02-02] MEDS ORDERED: FENTANYL CITRATE PF 50 MCG/1 ML 2ML VIAL IVP ONE ×2 (09:00)
[2022-02-02] MEDS ORDERED: ACETAMINOPHEN 325 MG TAB PO PRN ×2 (09:30)
[2022-02-02] MEDS ORDERED: HYDRALAZINE 20MG/ML VIAL IV PRN (09:30)
[2022-02-02] MEDS ORDERED: ONDANSETRON 4MG INJ IV PRN (09:30)
[2022-02-02] MEDS ORDERED: NITROGLYCERIN 0.4 MG SL TAB SL PRN (10:00)
[2022-02-02] MEDS ORDERED: MAGNESIUM 2GM PREMIX 50ML 50 ML IV PRN (10:00)
[2022-02-02] MEDS ORDERED: DEXTROSE 50%-WATER 50 ML DISP.SYRIN IV PRN (10:00)
[2022-02-02] MEDS ORDERED: GLUCAGON 1MG KIT 1 MG ML IM PRN (10:00)
[2022-02-02 10:07] LABS: HEMOGLOBIN A1C 6.5 % (4.0-6.0)
[2022-02-02 10:13] LABS: CHOLESTEROL 169 mg/dL (<200); HDL CHOLESTEROL 50 mg/dL (29-71); LDL DIRECT 92 mg/dL (0-99); TRIGLYCERIDES 173 mg/dL (30-200)
[2022-02-02] MEDS: INSULIN HUMULIN R 100 UNIT/ML 3ML SQ SCH ×3 (11:30→21:00)
[2022-02-02 11:37] VITALS: BP 153/85
[2022-02-02] MEDS ORDERED: RANO500T2 PO (11:50)
[2022-02-02] MEDS ORDERED: OMEP20CA12 PO (11:52)
[2022-02-02] MEDS ORDERED: MAGN250T35 PO (11:55)
[2022-02-02] MEDS ORDERED: IOHEXOL-350 75 ML VIAL IV ONE (12:30)
[2022-02-02 16:00] VITALS: BP 119/70
[2022-02-02 20:05] VITALS: BP 126/68
[2022-02-02] MEDS ORDERED: ZOLPIDEM TARTRATE 5 MG TAB PO SCH (21:00)
[2022-02-02] MEDS: FAMOTIDINE 20MG TAB PO SCH ×2 (21:00→21:37)
[2022-02-02] MEDS ORDERED: METOPROLOL TARTRATE 25 MG TAB PO SCH (21:00)
[2022-02-02] MEDS ORDERED: ATORVASTATIN 20 MG TABLET PO SCH (21:00)
[2022-02-02] MEDS: METOPROLOL TARTRATE 25 MG TAB PO SCH (21:37)
[2022-02-02 23:29] VITALS: BP 95/57
[2022-02-03] MEDS ORDERED: TEMAZEPAM 15 MG CAPSULE PO ONE (00:30)
[2022-02-03 03:51] VITALS: BP 119/76
[2022-02-03 05:32] LABS: HEMATOCRIT 36.7 % (42-54); MEAN CORPUSCULAR HEMOGLOBIN 29.7 pg (27.0-33.0); MEAN CORPUSCULAR HGB CONC 33.8 g/dL (32.0-36.0); RED BLOOD CELL COUNT(AUTO) 4.17 MIL/uL (4.50-6.20); RED CELL DISTRIBUTION WIDTH 13.5 % (11.0-15.5); WHITE BLOOD COUNT (AUTO) 6.5 K/uL (4.8-10.8)
[2022-02-03 05:47] LABS: ALBUMIN 2.8 g/dL (3.5-5.0); CREATININE 0.9 mg/dL (0.5-1.5); MAGNESIUM 1.4 mg/dL (1.80-2.40); POTASSIUM 3.5 mmol/L (3.5-5.1); TOTAL PROTEIN, SERUM 5.9 g/dL (6.0-8.3)
[2022-02-03] MEDS: INSULIN HUMULIN R 100 UNIT/ML 3ML SQ SCH (06:42)
[2022-02-03 07:49] VITALS: BP 145/72
[2022-02-03] MEDS ORDERED: METFORMIN HCL 500 MG TAB.SR.24H PO SCH (08:00)
[2022-02-03] MEDS ORDERED: ASPIRIN 81 MG EC TAB PO SCH (09:00)
[2022-02-03] MEDS ORDERED: ENOXAPARIN SODIUM 40 MG/0.4 ML SYRINGE SQ SCH ×2 (09:00)
[2022-02-03] MEDS ORDERED: MAGNESIUM 2GM PREMIX 50ML 50 ML IV PRN (09:00)
[2022-02-03] MEDS: FAMOTIDINE 20MG TAB PO SCH (09:02)
[2022-02-03] MEDS: METOPROLOL TARTRATE 25 MG TAB PO SCH (09:02)
== END 2022-02-03 14:30 | disposition home or self-care (01) ==
LOC: EDH 07:24 → EDHIP 09:20 → INTOOBSV 09:20 → OBSVTOIN 09:20 → 4BH 10:53
PROVIDERS: ADMIT Hospitalist; ATTEND Hospitalist
DX: R07.89 Other chest pain (principal); Z20.822 Contact with and (suspected) exposure to COVID-19; E83.42 Hypomagnesemia; E11.9 Type 2 diabetes mellitus without complications; I10 Essential (primary) hypertension; I25.110 Atherosclerotic heart disease of native coronary artery with unstable angina pectoris; E78.00 Pure hypercholesterolemia, unspecified; E78.5 Hyperlipidemia, unspecified; E03.9 Hypothyroidism, unspecified; G47.00 Insomnia, unspecified; K21.9 Gastro-esophageal reflux disease without esophagitis; Z88.0 Allergy status to penicillin; Z79.899 Other long term (current) drug therapy; Z79.82 Long term (current) use of aspirin; Z95.1 Presence of aortocoronary bypass graft; Z68.41 Body mass index [BMI] 40.0-44.9, adult
CPT/HCPCS: 96375; 99285; 83036; 83735 ×2; 84484 ×3; 80061; 80053 ×2; 83880; 85025; 85378; 82948 ×4; 81003; 36415 ×2; 87635; 71045; 71270; 93005 ×2; 96372; 96365; 96366; 85027; 93306; 93356; G0378 ×28; C9803; J3010; Q9967; J3475; J1650

== ENCOUNTER 2022-02-08 17:51 | Emergency (ER) | payer OTHER, MEDICARE ==
[~2022-02-08] VITALS: Ht 172.7 cm; Wt 119.3 kg
[~2022-02-08 17:51] MED LIST changes: -ACET-66 PO; -BENZ-70 PO; -DEXL60CA3 PO; -LISI10TA24 PO; +MAGN250T35 PO; -MAGN400T40 PO; -MECL-226 PO; -METF-890 PO; -METO25TA6 PO; +OMEP20CA12 PO; -PANT40TA PO; +RANO500T2 PO
[2022-02-08 18:21] LABS: APPEARANCE,URINE CLEAR (CLEAR); BILIRUBIN,URINE NEGATIVE (NEGATIVE); COLOR,URINE COLORLESS (YELLOW); GLUCOSE, URINE (UA) NEGATIVE (NEGATIVE); KETONES,URINE NEGATIVE (NEGATIVE); LEUKOCYTE ESTERASE ,URINE NEGATIVE Leu/uL (NEGATIVE); NITRATE,URINE NEGATIVE (NEGATIVE); OCCULT BLOOD,URINE NEGATIVE (NEGATIVE); PROTEIN,URINE NEGATIVE (NEGATIVE); UROBILINOGEN,URINE 0.2 mg/dL (0.2-1.0)
[2022-02-08 20:00] VITALS: BP 155/81
== END 2022-02-08 21:38 | disposition home or self-care (01) ==
LOC: EDH 17:51
DX: R33.9 Retention of urine, unspecified (principal); F41.9 Anxiety disorder, unspecified; F32.A Depression, unspecified; E11.9 Type 2 diabetes mellitus without complications; K21.9 Gastro-esophageal reflux disease without esophagitis; E03.9 Hypothyroidism, unspecified; I10 Essential (primary) hypertension; Z98.890 Other specified postprocedural states; Z88.0 Allergy status to penicillin; Z88.5 Allergy status to narcotic agent; Z88.6 Allergy status to analgesic agent; Z88.8 Allergy status to other drugs, medicaments and biological substances; Z79.899 Other long term (current) drug therapy; Z79.82 Long term (current) use of aspirin; Z79.84 Long term (current) use of oral hypoglycemic drugs
CPT/HCPCS: 51702; 81003

== ENCOUNTER 2022-02-11 13:53 | Emergency (ER) | payer OTHER, MEDICARE ==
[~2022-02-11] VITALS: Ht 172.7 cm; Wt 120.2 kg
[2022-02-11 16:16] LABS: APPEARANCE,URINE CLEAR (CLEAR); BILIRUBIN,URINE NEGATIVE (NEGATIVE); COLOR,URINE YELLOW (YELLOW); GLUCOSE, URINE (UA) NEGATIVE (NEGATIVE); KETONES,URINE NEGATIVE (NEGATIVE); LEUKOCYTE ESTERASE ,URINE NEGATIVE Leu/uL (NEGATIVE); NITRATE,URINE NEGATIVE (NEGATIVE); OCCULT BLOOD,URINE NEGATIVE (NEGATIVE); PROTEIN,URINE NEGATIVE (NEGATIVE); UROBILINOGEN,URINE 0.2 mg/dL (0.2-1.0)
[2022-02-11 16:31] VITALS: BP 132/87
== END 2022-02-11 16:38 | disposition home or self-care (01) ==
LOC: EDH 13:53
DX: R39.198 Other difficulties with micturition (principal); E66.01 Morbid (severe) obesity due to excess calories; Z68.41 Body mass index [BMI] 40.0-44.9, adult; F41.9 Anxiety disorder, unspecified; F32.A Depression, unspecified; E11.9 Type 2 diabetes mellitus without complications; K21.9 Gastro-esophageal reflux disease without esophagitis; E03.9 Hypothyroidism, unspecified; I10 Essential (primary) hypertension; Z88.0 Allergy status to penicillin; Z88.5 Allergy status to narcotic agent; Z88.6 Allergy status to analgesic agent; Z88.8 Allergy status to other drugs, medicaments and biological substances; Z79.899 Other long term (current) drug therapy; Z79.82 Long term (current) use of aspirin; Z98.890 Other specified postprocedural states
CPT/HCPCS: 81003

== ENCOUNTER 2022-02-24 15:48 | Emergency (ER) | payer OTHER, MEDICARE ==
[~2022-02-24] VITALS: Ht 172.7 cm; Wt 117.9 kg
[2022-02-24 15:50] VITALS: BP 138/89
[2022-02-24 16:55] LABS: APPEARANCE,URINE CLEAR (CLEAR); BILIRUBIN,URINE NEGATIVE (NEGATIVE); COLOR,URINE COLORLESS (YELLOW); GLUCOSE, URINE (UA) NEGATIVE (NEGATIVE); KETONES,URINE NEGATIVE (NEGATIVE); LEUKOCYTE ESTERASE ,URINE NEGATIVE Leu/uL (NEGATIVE); NITRATE,URINE NEGATIVE (NEGATIVE); OCCULT BLOOD,URINE NEGATIVE (NEGATIVE); PROTEIN,URINE NEGATIVE (NEGATIVE); UROBILINOGEN,URINE 0.2 mg/dL (0.2-1.0)
[2022-02-24 17:06] LABS: BASOPHILS % (AUTO) 0.6 % (0.0-5.0); EOSINOPHILS % (AUTO) 0.7 % (0.0-8.0); HEMATOCRIT 39.3 % (42-54); LYMPHOCYTES % (AUTO) 38.4 % (21.0-51.0); MEAN CORPUSCULAR HEMOGLOBIN 30.1 pg (27.0-33.0); MEAN CORPUSCULAR HGB CONC 33.6 g/dL (32.0-36.0); MEAN CORPUSCULAR VOLUME 89.5 fL (79-99); MONOCYTES % (AUTO) 9.8 % (3.0-13.0); NEUTROPHILS % (AUTO) 50.4 % (40.0-77.0); PLATELET COUNT (AUTO) 187 K/uL (130-400); RED BLOOD CELL COUNT(AUTO) 4.39 MIL/uL (4.50-6.20); RED CELL DISTRIBUTION WIDTH 13.8 % (11.0-15.5); WHITE BLOOD COUNT (AUTO) 7.3 K/uL (4.8-10.8)
[2022-02-24 17:17] LABS: CREATININE 0.8 mg/dL (0.5-1.5); POTASSIUM 3.7 mmol/L (3.5-5.1)
[2022-02-24 17:24] LABS: ALBUMIN 3.2 g/dL (3.5-5.0); TOTAL PROTEIN, SERUM 6.4 g/dL (6.0-8.3)
== END 2022-02-24 18:48 | disposition home or self-care (01) ==
LOC: EDH 15:48
DX: R10.30 Lower abdominal pain, unspecified (principal); F41.9 Anxiety disorder, unspecified; E11.9 Type 2 diabetes mellitus without complications; E78.00 Pure hypercholesterolemia, unspecified; I10 Essential (primary) hypertension; E03.9 Hypothyroidism, unspecified; E66.01 Morbid (severe) obesity due to excess calories; Z68.39 Body mass index [BMI] 39.0-39.9, adult; Z79.899 Other long term (current) drug therapy; Z79.82 Long term (current) use of aspirin; Z88.0 Allergy status to penicillin; Z88.5 Allergy status to narcotic agent; Z88.6 Allergy status to analgesic agent; Z98.890 Other specified postprocedural states
CPT/HCPCS: 36415; 80053; 81003; 83690; 84484; 85025; 93005

== ENCOUNTER 2022-03-09 23:27 | Emergency (ER) | payer OTHER, MEDICARE ==
[~2022-03-09] VITALS: Ht 172.7 cm; Wt 120.2 kg
[2022-03-10] VITALS: BP 133/60
== END 2022-03-10 00:29 | disposition home or self-care (01) ==
LOC: EDH 23:27
DX: I10 Essential (primary) hypertension (principal); E11.9 Type 2 diabetes mellitus without complications; E03.9 Hypothyroidism, unspecified; E78.00 Pure hypercholesterolemia, unspecified; F41.9 Anxiety disorder, unspecified; Z79.82 Long term (current) use of aspirin; Z79.899 Other long term (current) drug therapy; Z88.0 Allergy status to penicillin; Z88.5 Allergy status to narcotic agent; Z95.1 Presence of aortocoronary bypass graft

== ENCOUNTER 2022-03-14 14:35 | Emergency (ER) | payer OTHER, MEDICARE ==
[~2022-03-14] VITALS: Ht 172.7 cm; Wt 120.2 kg
[2022-03-14] MEDS ORDERED: LACTATED RINGERS 1000ML 1,000 ML IV ONE (15:00)
[2022-03-14 15:40] LABS: BASOPHILS % (AUTO) 0.3 % (0.0-5.0); HEMATOCRIT 39.4 % (42-54); MEAN CORPUSCULAR HEMOGLOBIN 30.1 pg (27.0-33.0); MEAN CORPUSCULAR HGB CONC 33.8 g/dL (32.0-36.0); MEAN CORPUSCULAR VOLUME 89.1 fL (79-99); MONOCYTES % (AUTO) 8.7 % (3.0-13.0); NEUTROPHILS % (AUTO) 68.7 % (40.0-77.0); PLATELET COUNT (AUTO) 209 K/uL (130-400); RED BLOOD CELL COUNT(AUTO) 4.42 MIL/uL (4.50-6.20); RED CELL DISTRIBUTION WIDTH 13.9 % (11.0-15.5); WHITE BLOOD COUNT (AUTO) 9.4 K/uL (4.8-10.8)
[2022-03-14 15:52] LABS: POTASSIUM 3.9 mmol/L (3.5-5.1)
[2022-03-14 16:01] LABS: TOTAL PROTEIN, SERUM 6.4 g/dL (6.0-8.3)
[2022-03-14 16:22] LABS: APPEARANCE,URINE CLEAR (CLEAR); BILIRUBIN,URINE NEGATIVE (NEGATIVE); COLOR,URINE YELLOW (YELLOW); GLUCOSE, URINE (UA) 70 mg/dL (NEGATIVE); KETONES,URINE NEGATIVE (NEGATIVE); LEUKOCYTE ESTERASE ,URINE NEGATIVE Leu/uL (NEGATIVE); NITRATE,URINE NEGATIVE (NEGATIVE); OCCULT BLOOD,URINE NEGATIVE (NEGATIVE); PH,URINE 6.5 (5.0-8.0); PROTEIN,URINE 20 mg/dL (NEGATIVE); UROBILINOGEN,URINE 0.2 mg/dL (0.2-1.0)
[2022-03-14 16:23] LABS: MUCUS,URINE RARE LPF (None Seen); RBC,URINE 0-1 /HPF (0-1); WBC,URINE 0-1 /HPF (0-1)
[2022-03-14 16:54] VITALS: BP 120/52
== END 2022-03-14 18:08 | disposition home or self-care (01) ==
LOC: EDH 14:35
DX: R42 Dizziness and giddiness (principal); I25.10 Atherosclerotic heart disease of native coronary artery without angina pectoris; E11.9 Type 2 diabetes mellitus without complications; E78.00 Pure hypercholesterolemia, unspecified; I10 Essential (primary) hypertension; Z88.0 Allergy status to penicillin; Z88.5 Allergy status to narcotic agent; Z88.6 Allergy status to analgesic agent; Z79.899 Other long term (current) drug therapy; Z79.82 Long term (current) use of aspirin; Z98.890 Other specified postprocedural states
CPT/HCPCS: 99284; 96360; 84484; 80053; 85025; 83605; 81001; 36415; 93005; 84145; J7120

== ENCOUNTER 2022-04-20 22:34 | Emergency (ER) | payer OTHER, MEDICARE ==
[~2022-04-20] VITALS: Ht 172.7 cm; Wt 123.8 kg
[~2022-04-20 22:34] MED LIST changes: -DOXY100C5 PO; -ISOS20TA85 PO; -OMEP20CA12 PO
[2022-04-20] MEDS ORDERED: LIDOCAINE HCL 2% VISCOUS 15 ML UDCUP ONE (23:22)
[2022-04-20] MEDS ORDERED: DICYCLOMINE HCL 10 MG/5 ML ML PO ONE (23:22)
[2022-04-20] MEDS ORDERED: MAG/ALUM/SIMETH 30 ML UDCUP ONE (23:22)
[2022-04-20 23:29] LABS: BASOPHILS % (AUTO) 0.5 % (0.0-5.0); EOSINOPHILS % (AUTO) 1.6 % (0.0-8.0); HEMATOCRIT 37.5 % (42-54); LYMPHOCYTES % (AUTO) 46.8 % (21.0-51.0); MEAN CORPUSCULAR HEMOGLOBIN 30.1 pg (27.0-33.0); MEAN CORPUSCULAR HGB CONC 33.6 g/dL (32.0-36.0); MEAN CORPUSCULAR VOLUME 89.7 fL (79-99); MONOCYTES % (AUTO) 10.3 % (3.0-13.0); NEUTROPHILS % (AUTO) 40.5 % (40.0-77.0); PLATELET COUNT (AUTO) 191 K/uL (130-400); RED BLOOD CELL COUNT(AUTO) 4.18 MIL/uL (4.50-6.20); RED CELL DISTRIBUTION WIDTH 14.4 % (11.0-15.5); WHITE BLOOD COUNT (AUTO) 7.6 K/uL (4.8-10.8)
[2022-04-20 23:56] LABS: CREATININE 0.9 mg/dL (0.5-1.5)
[2022-04-21 00:01] LABS: ALBUMIN 3.3 g/dL (3.5-5.0); TOTAL PROTEIN, SERUM 6.6 g/dL (6.0-8.3)
[2022-04-21 06:15] VITALS: BP 142/78
[2022-04-21] MEDS ORDERED: TRAM-355 PO (07:46)
== END 2022-04-21 08:25 | disposition home or self-care (01) ==
LOC: EDH 22:34
DX: R07.89 Other chest pain (principal); K21.9 Gastro-esophageal reflux disease without esophagitis; E11.9 Type 2 diabetes mellitus without complications; E78.00 Pure hypercholesterolemia, unspecified; I10 Essential (primary) hypertension; Z98.890 Other specified postprocedural states; Z79.899 Other long term (current) drug therapy; Z79.82 Long term (current) use of aspirin; Z88.0 Allergy status to penicillin; Z88.5 Allergy status to narcotic agent; Z88.6 Allergy status to analgesic agent
CPT/HCPCS: 36415; 71045; 80053; 84484; 85025; 93005

== ENCOUNTER 2022-07-19 11:38 | Emergency (ER) | payer OTHER, MEDICARE ==
[~2022-07-19] VITALS: Ht 172.7 cm; Wt 131.1 kg
[~2022-07-19 11:38] MED LIST changes: +TRAM-355 PO
[2022-07-19 13:11] LABS: BASOPHILS % (AUTO) 0.5 % (0.0-5.0); EOSINOPHILS % (AUTO) 1.8 % (0.0-8.0); LYMPHOCYTES % (AUTO) 39.6 % (21.0-51.0); MEAN CORPUSCULAR HEMOGLOBIN 29.4 pg (27.0-33.0); MEAN CORPUSCULAR HGB CONC 33.3 g/dL (32.0-36.0); MEAN CORPUSCULAR VOLUME 88.3 fL (79-99); MONOCYTES % (AUTO) 9.7 % (3.0-13.0); NEUTROPHILS % (AUTO) 48.1 % (40.0-77.0); PLATELET COUNT (AUTO) 212 K/uL (130-400); RED BLOOD CELL COUNT(AUTO) 4.87 MIL/uL (4.50-6.20); RED CELL DISTRIBUTION WIDTH 13.8 % (11.0-15.5); WHITE BLOOD COUNT (AUTO) 6.2 K/uL (4.8-10.8)
[2022-07-19 13:18] LABS: APPEARANCE,URINE CLEAR (CLEAR); BILIRUBIN,URINE NEGATIVE (NEGATIVE); COLOR,URINE COLORLESS (YELLOW); GLUCOSE, URINE (UA) NEGATIVE (NEGATIVE); KETONES,URINE NEGATIVE (NEGATIVE); LEUKOCYTE ESTERASE ,URINE NEGATIVE Leu/uL (NEGATIVE); NITRATE,URINE NEGATIVE (NEGATIVE); OCCULT BLOOD,URINE NEGATIVE (NEGATIVE); PROTEIN,URINE 10 mg/dL (NEGATIVE); UROBILINOGEN,URINE 0.2 mg/dL (0.2-1.0)
[2022-07-19 13:24] LABS: CREATININE 1.1 mg/dL (0.5-1.5); POTASSIUM 3.9 mmol/L (3.5-5.1)
[2022-07-19 13:28] LABS: ALBUMIN 3.6 g/dL (3.5-5.0); TOTAL PROTEIN, SERUM 7.5 g/dL (6.0-8.3)
[2022-07-19 13:39] LABS: MUCUS,URINE RARE LPF (None Seen); SQUAMOUS EPITHELIAL CELL,UR RARE /HPF (0-2); WBC,URINE 0-1 /HPF (0-1)
[2022-07-19] MEDS ORDERED: IOHEXOL 350 MG/ML 100ML INFUS..BTL IV ONE (16:23)
[2022-07-19] MEDS ORDERED: FAMO-136 PO (17:55)
[2022-07-19 18:35] VITALS: BP 133/78
== END 2022-07-19 18:05 | disposition home or self-care (01) ==
LOC: EDH 11:38
DX: R10.30 Lower abdominal pain, unspecified (principal); E66.01 Morbid (severe) obesity due to excess calories; E11.9 Type 2 diabetes mellitus without complications; E78.00 Pure hypercholesterolemia, unspecified; I10 Essential (primary) hypertension; Z79.899 Other long term (current) drug therapy; Z68.41 Body mass index [BMI] 40.0-44.9, adult; Z79.82 Long term (current) use of aspirin; Z88.5 Allergy status to narcotic agent; Z88.0 Allergy status to penicillin; Z95.5 Presence of coronary angioplasty implant and graft; Z95.1 Presence of aortocoronary bypass graft; Z88.8 Allergy status to other drugs, medicaments and biological substances
CPT/HCPCS: 99285; 74177; 80053; 83690; 85025; 81001; 36415; Q9967

== ENCOUNTER 2022-08-03 10:30 | Day surgery (SDC) | payer OTHER, MEDICARE ==
[~2022-08-03] VITALS: Ht 172.7 cm; Wt 130.6 kg
[2022-08-03] VITALS (9 sets, daily range): BP systolic 116–180; BP diastolic 64–90
[~2022-08-03 10:30] MED LIST changes: +DOXA8TAB81 PO; +FAMO-136 PO; +MECL-226 PO; +METF-890 PO; +METO-408 PO; -TAMS0.4C32 PO; -TRAM-355 PO
[2022-08-03] MEDS ORDERED: 0.9%NACL 1000ML 1,000 ML IV ONE (10:49)
[2022-08-03] MEDS ORDERED: FENTANYL CITRATE PF 50 MCG/1 ML 2ML VIAL ONE ×2 (11:45)
[2022-08-03] MEDS ORDERED: MIDAZOLAM HCL 1 MG/ML 2ML VIAL ONE (11:46)
[2022-08-03] MEDS ORDERED: PROPOFOL 10 MG/ML 20ML VIAL IV ONE (11:49)
[2022-08-03] MEDS ORDERED: LIDOCAINE HCL 1% 20 ML VIAL ONE (11:50)
== END 2022-08-03 13:17 | disposition home or self-care (01) ==
LOC: DAH 10:30 → ENDO 10:30
PROVIDERS: ATTEND Internal Medicine
DX: R10.13 Epigastric pain (principal); Z20.822 Contact with and (suspected) exposure to COVID-19; K21.00 Gastro-esophageal reflux disease with esophagitis, without bleeding; R13.10 Dysphagia, unspecified; K57.30 Diverticulosis of large intestine without perforation or abscess without bleeding; K29.50 Unspecified chronic gastritis without bleeding; K31.89 Other diseases of stomach and duodenum; K31.7 Polyp of stomach and duodenum; E66.01 Morbid (severe) obesity due to excess calories; I10 Essential (primary) hypertension; E11.9 Type 2 diabetes mellitus without complications; I25.10 Atherosclerotic heart disease of native coronary artery without angina pectoris; F41.9 Anxiety disorder, unspecified; F32.A Depression, unspecified; E03.9 Hypothyroidism, unspecified; E66.9 Obesity, unspecified; E78.5 Hyperlipidemia, unspecified; Z98.890 Other specified postprocedural states; Z88.0 Allergy status to penicillin; Z88.8 Allergy status to other drugs, medicaments and biological substances; Z79.82 Long term (current) use of aspirin; Z79.899 Other long term (current) drug therapy; Z86.010 Personal history of colon polyps; Z68.41 Body mass index [BMI] 40.0-44.9, adult
CPT/HCPCS: 87426; 43239; J7030 ×2; J2250; J2704; A4620; A4215 ×2; A4223; A4657; A7002; A4222; A4221; A4663; A4216; A4606; J3010

== ENCOUNTER → 2022-11-23 | Outpatient (CLI) | payer OTHER, MEDICARE | END | disposition home or self-care (01) | LOC: RAH 09:57 | PROVIDERS: ATTEND Urology | DX: N50.3 Cyst of epididymis (principal); N44.2 Benign cyst of testis | CPT/HCPCS: 76870 ==

== ENCOUNTER 2023-01-25 18:33 | Emergency (ER) | payer OTHER, MEDICARE ==
[~2023-01-25] VITALS: Ht 172.7 cm; Wt 132.4 kg
[2023-01-25 19:53] VITALS: BP 146/72; PULSE 75; RESP 16; O2SAT 96
== END 2023-01-25 20:31 | disposition home or self-care (01) ==
LOC: EDH 18:33
DX: R68.83 Chills (without fever) (principal); E11.9 Type 2 diabetes mellitus without complications; E78.00 Pure hypercholesterolemia, unspecified; I10 Essential (primary) hypertension; I25.10 Atherosclerotic heart disease of native coronary artery without angina pectoris; K21.9 Gastro-esophageal reflux disease without esophagitis; Z79.82 Long term (current) use of aspirin; Z79.84 Long term (current) use of oral hypoglycemic drugs; Z79.890 Hormone replacement therapy; Z79.899 Other long term (current) drug therapy; Z88.0 Allergy status to penicillin; Z88.5 Allergy status to narcotic agent; Z95.1 Presence of aortocoronary bypass graft; Z95.5 Presence of coronary angioplasty implant and graft
CPT/HCPCS: 99281

== ENCOUNTER 2023-06-04 16:38 | Emergency (ER) | payer OTHER, MEDICARE ==
[~2023-06-04] VITALS: Ht 172.7 cm; Wt 133.8 kg
[2023-06-04 17:18] LABS: HEMATOCRIT 41.7 % (42-54); MEAN CORPUSCULAR HEMOGLOBIN 30.6 pg (27.0-33.0); MEAN CORPUSCULAR HGB CONC 33.8 g/dL (32.0-36.0); MEAN CORPUSCULAR VOLUME 90.5 fL (79-99); RED BLOOD CELL COUNT(AUTO) 4.61 MIL/uL (4.50-6.20); RED CELL DISTRIBUTION WIDTH 13.5 % (11.0-15.5); WHITE BLOOD COUNT (AUTO) 6.5 K/uL (4.8-10.8)
[2023-06-04 17:29] LABS: CREATININE 1.1 mg/dL (0.5-1.5); POTASSIUM 4.2 mmol/L (3.5-5.1)
[2023-06-04] MEDS ORDERED: AMLO2.5T2 PO (20:36)
[2023-06-04] MEDS: CLONIDINE HCL 0.2 MG TABLET PO ONE (20:55)
[2023-06-04 21:26] VITALS: BP 171/97; PULSE 76; RESP 18; O2SAT 99
[2023-06-05] MEDS ORDERED: MELO10CA3 PO (00:51)
[2023-06-05] MEDS ORDERED: BACI30OI6 TP (00:51)
== END 2023-06-04 21:27 | disposition home or self-care (01) ==
LOC: EDH 16:38
DX: I10 Essential (primary) hypertension (principal); E11.9 Type 2 diabetes mellitus without complications; E78.00 Pure hypercholesterolemia, unspecified; K21.9 Gastro-esophageal reflux disease without esophagitis; Z79.82 Long term (current) use of aspirin; Z79.84 Long term (current) use of oral hypoglycemic drugs; Z79.899 Other long term (current) drug therapy; Z98.890 Other specified postprocedural states; Z88.0 Allergy status to penicillin; Z88.5 Allergy status to narcotic agent; Z88.8 Allergy status to other drugs, medicaments and biological substances
CPT/HCPCS: 36415; 71045; 80048; 84484; 85027; 93005

== ENCOUNTER 2023-06-04 22:17 | Emergency (ER) | payer OTHER, MEDICARE ==
[~2023-06-04] VITALS: Ht 172.7 cm; Wt 133.4 kg
[~2023-06-04 22:17] MED LIST changes: +AMLO2.5T2 PO
[2023-06-05] MEDS ORDERED: BACI30OI6 TP (00:51)
[2023-06-05] MEDS ORDERED: MELO10CA3 PO (00:51)
[2023-06-05] MEDS: BACITRACIN 1 EACH PACKET TP ONE (01:30)
[2023-06-05 01:34] VITALS: BP 122/82; PULSE 86; RESP 16; O2SAT 99
== END 2023-06-05 01:36 | disposition home or self-care (01) ==
LOC: EDH 22:17
DX: S80.01XA Contusion of right knee, initial encounter (principal); S09.8XXA Other specified injuries of head, initial encounter; I11.0 Hypertensive heart disease with heart failure; I50.9 Heart failure, unspecified; E11.9 Type 2 diabetes mellitus without complications; E03.9 Hypothyroidism, unspecified; Z79.82 Long term (current) use of aspirin; Z79.899 Other long term (current) drug therapy; Z98.890 Other specified postprocedural states; W18.39XA Other fall on same level, initial encounter; Y93.89 Activity, other specified; Y92.89 Other specified places as the place of occurrence of the external cause; Y99.8 Other external cause status
CPT/HCPCS: 70450; 73562

== ENCOUNTER 2023-06-14 18:34 | Emergency (ER) | payer OTHER, MEDICARE ==
[~2023-06-14] VITALS: Ht 172.7 cm; Wt 130.6 kg
[~2023-06-14 18:34] MED LIST changes: +BACI30OI6 TP; +MELO10CA3 PO
[2023-06-14] MEDS ORDERED: ACETAMINOPHEN 500 MG TABLET PO ONE (20:00)
[2023-06-14 20:20] LABS: BASOPHILS # (AUTO) 0.03 K/uL (0.00-0.20); BASOPHILS % (AUTO) 0.4 % (0.0-5.0); EOSINOPHILS # (AUTO) 0.09 K/uL (0.00-0.70); EOSINOPHILS % (AUTO) 1.2 % (0.0-8.0); HEMATOCRIT 39.5 % (42-54); IMMATURE GRANULOCYTE ABSOLUTE 0.02 K/uL (0-1); LYMPHOCYTES # (AUTO) 2.5 K/uL (1.0-4.8); LYMPHOCYTES % (AUTO) 33.5 % (21.0-51.0); MEAN CORPUSCULAR HEMOGLOBIN 30.3 pg (27.0-33.0); MEAN CORPUSCULAR HGB CONC 34.4 g/dL (32.0-36.0); MONOCYTES # (AUTO) 0.7 K/uL (0.1-1.0); MONOCYTES % (AUTO) 9.1 % (3.0-13.0); NEUTROPHILS # (AUTO) 4.2 K/uL (1.8-7.7); NEUTROPHILS % (AUTO) 55.5 % (40.0-77.0); PLATELET COUNT (AUTO) 216 K/uL (130-400); RED BLOOD CELL COUNT(AUTO) 4.49 MIL/uL (4.50-6.20); RED CELL DISTRIBUTION WIDTH 13.4 % (11.0-15.5); WHITE BLOOD COUNT (AUTO) 7.6 K/uL (4.8-10.8)
[2023-06-14 20:33] LABS: CREATININE 1.1 mg/dL (0.5-1.5); POTASSIUM 4.4 mmol/L (3.5-5.1)
[2023-06-14 20:38] LABS: ALBUMIN 3.5 g/dL (3.5-5.0); BILIRUBIN,TOTAL 0.7 mg/dL (0.2-1.0); TOTAL PROTEIN, SERUM 7.2 g/dL (6.0-8.3)
[2023-06-14 21:13] VITALS: BP 138/80; PULSE 99; RESP 18; O2SAT 99
[2023-06-14] MEDS ORDERED: CLIN-141 PO (21:59)
[2023-06-14] MEDS ORDERED: MUPI22OI2 TP (21:59)
[2023-06-14] MEDS ORDERED: CLINDAMYCIN 150 MG CAP PO ONE (22:00)
== END 2023-06-14 22:11 | disposition home or self-care (01) ==
LOC: EDH 18:34
DX: L03.115 Cellulitis of right lower limb (principal); I11.0 Hypertensive heart disease with heart failure; I50.9 Heart failure, unspecified; E03.9 Hypothyroidism, unspecified; E11.9 Type 2 diabetes mellitus without complications; Z79.82 Long term (current) use of aspirin; Z79.84 Long term (current) use of oral hypoglycemic drugs; Z79.890 Hormone replacement therapy; Z79.899 Other long term (current) drug therapy; Z88.0 Allergy status to penicillin; Z88.5 Allergy status to narcotic agent; Z95.1 Presence of aortocoronary bypass graft; Z95.5 Presence of coronary angioplasty implant and graft
CPT/HCPCS: 36415; 73562; 80053; 85025

== ENCOUNTER 2023-06-20 12:57 | Emergency (ER) | payer OTHER, MEDICARE ==
[~2023-06-20] VITALS: Ht 172.7 cm; Wt 130.2 kg
[~2023-06-20 12:57] MED LIST changes: +CLIN-141 PO; +MUPI22OI2 TP
[2023-06-20] MEDS: ACETAMINOPHEN 325 MG TAB PO ONE (16:47)
[2023-06-20 19:53] VITALS: BP 156/81; PULSE 86; RESP 16; O2SAT 99
== END 2023-06-20 20:08 | disposition home or self-care (01) ==
LOC: EDH 15:07
DX: L03.115 Cellulitis of right lower limb (principal); M79.661 Pain in right lower leg; I25.10 Atherosclerotic heart disease of native coronary artery without angina pectoris; E11.9 Type 2 diabetes mellitus without complications; I10 Essential (primary) hypertension; E03.9 Hypothyroidism, unspecified
CPT/HCPCS: 73564; 93971

== ENCOUNTER 2023-06-25 08:56 | Emergency (ER) | payer OTHER, MEDICARE ==
[~2023-06-25] VITALS: Ht 170.2 cm; Wt 122.5 kg
[2023-06-25 09:41] LABS: BASOPHILS # (AUTO) 0.02 K/uL (0.00-0.20); BASOPHILS % (AUTO) 0.3 % (0.0-5.0); EOSINOPHILS # (AUTO) 0.07 K/uL (0.00-0.70); EOSINOPHILS % (AUTO) 1.2 % (0.0-8.0); HEMATOCRIT 38.9 % (42-54); IMMATURE GRANULOCYTE ABSOLUTE 0.02 K/uL (0-1); LYMPHOCYTES # (AUTO) 1.9 K/uL (1.0-4.8); MEAN CORPUSCULAR HEMOGLOBIN 30.7 pg (27.0-33.0); MEAN CORPUSCULAR HGB CONC 34.4 g/dL (32.0-36.0); MONOCYTES # (AUTO) 0.5 K/uL (0.1-1.0); MONOCYTES % (AUTO) 8.4 % (3.0-13.0); NEUTROPHILS # (AUTO) 3.4 K/uL (1.8-7.7); NEUTROPHILS % (AUTO) 57.8 % (40.0-77.0); PLATELET COUNT (AUTO) 211 K/uL (130-400); RED BLOOD CELL COUNT(AUTO) 4.37 MIL/uL (4.50-6.20); RED CELL DISTRIBUTION WIDTH 13.5 % (11.0-15.5); WHITE BLOOD COUNT (AUTO) 5.9 K/uL (4.8-10.8)
[2023-06-25 10:03] LABS: ALBUMIN 3.2 g/dL (3.5-5.0); BILIRUBIN,TOTAL 0.6 mg/dL (0.2-1.0); MAGNESIUM 1.5 mg/dL (1.80-2.40); TOTAL PROTEIN, SERUM 6.7 g/dL (6.0-8.3)
[2023-06-25 10:40] LABS: SARS-CoV-2, RNA, NAAT NEGATIVE SARS CoV-2 (NEGATIVE)
[2023-06-25 10:42] LABS: APPEARANCE,URINE CLEAR (CLEAR); BILIRUBIN,URINE NEGATIVE (NEGATIVE); COLOR,URINE LIGHT-YELLOW (YELLOW); GLUCOSE, URINE (UA) 50 mg/dL (NEGATIVE); KETONES,URINE NEGATIVE (NEGATIVE); LEUKOCYTE ESTERASE ,URINE NEGATIVE Leu/uL (NEGATIVE); NITRATE,URINE NEGATIVE (NEGATIVE); OCCULT BLOOD,URINE NEGATIVE (NEGATIVE); PH,URINE 6.5 (5.0-8.0); PROTEIN,URINE 10 mg/dL (NEGATIVE); UROBILINOGEN,URINE 0.2 mg/dL (0.2-1.0)
[2023-06-25 10:43] LABS: ADD UA MICROSCOPIC YES
[2023-06-25 10:45] LABS: INFLUENZA TYPE A Negative For Type A (NEGATIVE); INFLUENZA TYPE B Negative For Type B (NEGATIVE)
[2023-06-25 10:50] LABS: BACTERIA,URINE Few /HPF (None Seen); WBC,URINE 0-1 /HPF (0-1)
[2023-06-25] MEDS: ACETAMINOPHEN 500 MG TABLET PO ONE (13:00)
[2023-06-25 13:18] VITALS: BP 141/72; PULSE 75; RESP 17; O2SAT 96
== END 2023-06-25 13:26 | disposition home or self-care (01) ==
LOC: EDH 08:56
DX: R07.89 Other chest pain (principal); I10 Essential (primary) hypertension; E11.9 Type 2 diabetes mellitus without complications; E03.9 Hypothyroidism, unspecified; Z88.0 Allergy status to penicillin; Z88.5 Allergy status to narcotic agent; Z88.8 Allergy status to other drugs, medicaments and biological substances; Z79.84 Long term (current) use of oral hypoglycemic drugs; Z79.899 Other long term (current) drug therapy; Z20.822 Contact with and (suspected) exposure to COVID-19
CPT/HCPCS: 36415; 71045; 80053; 81001; 83735; 84484; 85025; 87635; 87804; 93005

== ENCOUNTER 2023-07-04 17:25 | Emergency (ER) | payer OTHER, MEDICARE ==
[~2023-07-04] VITALS: Ht 172.7 cm; Wt 127.9 kg
[2023-07-04 17:42] VITALS: BP 160/90
[2023-07-04 18:09] LABS: APPEARANCE,URINE CLEAR (CLEAR); BILIRUBIN,URINE NEGATIVE (NEGATIVE); COLOR,URINE LIGHT-YELLOW (YELLOW); GLUCOSE, URINE (UA) NEGATIVE (NEGATIVE); KETONES,URINE NEGATIVE (NEGATIVE); LEUKOCYTE ESTERASE ,URINE NEGATIVE Leu/uL (NEGATIVE); NITRATE,URINE NEGATIVE (NEGATIVE); OCCULT BLOOD,URINE NEGATIVE (NEGATIVE); PH,URINE 6.5 (5.0-8.0); PROTEIN,URINE NEGATIVE (NEGATIVE); UROBILINOGEN,URINE 0.2 mg/dL (0.2-1.0)
[2023-07-04 18:19] LABS: ADD UA MICROSCOPIC YES
[2023-07-04 19:30] LABS: MEAN CORPUSCULAR HEMOGLOBIN 30.5 pg (27.0-33.0); MEAN CORPUSCULAR HGB CONC 33.8 g/dL (32.0-36.0); MEAN CORPUSCULAR VOLUME 90.3 fL (79-99); RED BLOOD CELL COUNT(AUTO) 4.43 MIL/uL (4.50-6.20); RED CELL DISTRIBUTION WIDTH 13.6 % (11.0-15.5); WHITE BLOOD COUNT (AUTO) 7.1 K/uL (4.8-10.8)
[2023-07-04 19:31] LABS: RBC,URINE 0-1 /HPF (0-1); SQUAMOUS EPITHELIAL CELL,UR RARE /HPF (0-2); WBC,URINE 0-1 /HPF (0-1)
[2023-07-04 19:40] LABS: INR 0.98 (0.85-1.15); PROTHROMBIN TIME 11.4 SEC (9.6-11.6)
[2023-07-04 19:41] LABS: PARTIAL THROMBOPLASTIN TIME 28.8 SEC (26.3-35.5)
[2023-07-04 19:44] LABS: CREATININE 1.3 mg/dL (0.5-1.5); MAGNESIUM 1.5 mg/dL (1.80-2.40); POTASSIUM 4.4 mmol/L (3.5-5.1)
[2023-07-05] MEDS ORDERED: DOXY-252 PO (01:59)
[2023-07-05] MEDS: CEFAZOLIN SODIUM 1 GM VIAL ONE (02:08)
[2023-07-05] MEDS: LIDOCAINE HCL 1% 20 ML VIAL ONE (02:08)
[2023-07-05 03:28] VITALS: PULSE 78; RESP 18; O2SAT 99
== END 2023-07-05 03:30 | disposition home or self-care (01) ==
LOC: EDH 17:25
DX: L03.115 Cellulitis of right lower limb (principal); M79.89 Other specified soft tissue disorders; M79.604 Pain in right leg; E03.9 Hypothyroidism, unspecified; E11.9 Type 2 diabetes mellitus without complications; E78.00 Pure hypercholesterolemia, unspecified; I25.10 Atherosclerotic heart disease of native coronary artery without angina pectoris; I11.0 Hypertensive heart disease with heart failure; I50.9 Heart failure, unspecified; Z79.82 Long term (current) use of aspirin; Z79.84 Long term (current) use of oral hypoglycemic drugs; Z79.890 Hormone replacement therapy; Z79.899 Other long term (current) drug therapy; Z85.828 Personal history of other malignant neoplasm of skin; Z88.5 Allergy status to narcotic agent; Z88.0 Allergy status to penicillin; Z95.1 Presence of aortocoronary bypass graft
CPT/HCPCS: 36415; 71045; 80048; 81001; 83735; 83880; 84484; 85027; 85610; 85730; 93005; 93971; J0690

== ENCOUNTER 2023-08-04 10:10 | Emergency (ER) | payer OTHER, MEDICARE ==
[~2023-08-04] VITALS: Ht 172.7 cm; Wt 122.0 kg
[~2023-08-04 10:10] MED LIST changes: -BACI30OI6 TP; +DOXY-252 PO
[2023-08-04 10:38] LABS: HEMATOCRIT 43.8 % (42-54); MEAN CORPUSCULAR HEMOGLOBIN 30.2 pg (27.0-33.0); MEAN CORPUSCULAR HGB CONC 33.6 g/dL (32.0-36.0); MEAN CORPUSCULAR VOLUME 90.1 fL (79-99); PLATELET COUNT (AUTO) 198 K/uL (130-400); RED BLOOD CELL COUNT(AUTO) 4.86 MIL/uL (4.50-6.20); RED CELL DISTRIBUTION WIDTH 13.9 % (11.0-15.5); WHITE BLOOD COUNT (AUTO) 6.3 K/uL (4.8-10.8)
[2023-08-04 11:19] LABS: POTASSIUM 4.6 mmol/L (3.5-5.1)
[2023-08-04 11:24] LABS: ALBUMIN 3.4 g/dL (3.5-5.0); BILIRUBIN,TOTAL 0.7 mg/dL (0.2-1.0)
[2023-08-04 13:02] LABS: EOSINOPHILS % (MANUAL) 1 % (1-6); LYMPHOCYTES % (MANUAL) 40 % (22-44); MAN.DIFF COMMENT-IMPRESSION MANUAL DIFFERENTIAL; MONOCYTES % (MANUAL) 5 % (2-9); PLATELET MORPHOLOGY COMMENT ADEQUATE; REACTIVE LYMPHOCYTES 5 % (0-0); SEGMENTED NEUTROPHILS % 49 % (40-70); TOTAL CELLS COUNTED 100
[2023-08-04] MEDS ORDERED: IOHEXOL-350 75 ML VIAL IV ONE (13:41)
[2023-08-04] MEDS ORDERED: PIND10TA2 PO (17:36)
[2023-08-04 18:25] VITALS: BP 166/80; PULSE 58; RESP 17; O2SAT 99
== END 2023-08-04 18:22 | disposition home or self-care (01) ==
LOC: EDH 10:10
DX: I65.22 Occlusion and stenosis of left carotid artery (principal); I10 Essential (primary) hypertension; E11.9 Type 2 diabetes mellitus without complications; E78.00 Pure hypercholesterolemia, unspecified; E03.9 Hypothyroidism, unspecified; I67.82 Cerebral ischemia; Z79.82 Long term (current) use of aspirin; Z79.84 Long term (current) use of oral hypoglycemic drugs; Z79.899 Other long term (current) drug therapy; Z88.0 Allergy status to penicillin; Z88.5 Allergy status to narcotic agent; Z88.8 Allergy status to other drugs, medicaments and biological substances; Z95.1 Presence of aortocoronary bypass graft
CPT/HCPCS: 99285; 70496; 70551; 70498; 83735; 84484; 80053; 85025; 36415; 70450; 93005; Q9967

== ENCOUNTER 2023-08-25 05:49 | Emergency (ER) | payer OTHER, MEDICARE ==
[~2023-08-25] VITALS: Ht 172.7 cm; Wt 118.4 kg
[~2023-08-25 05:49] MED LIST changes: +PIND10TA2 PO
[2023-08-25 07:20] LABS: BASOPHILS # (AUTO) 0.03 K/uL (0.00-0.20); BASOPHILS % (AUTO) 0.5 % (0.0-5.0); EOSINOPHILS # (AUTO) 0.05 K/uL (0.00-0.70); EOSINOPHILS % (AUTO) 0.8 % (0.0-8.0); HEMATOCRIT 41.1 % (42-54); IMMATURE GRANULOCYTE ABSOLUTE 0.02 K/uL (0-1); LYMPHOCYTES % (AUTO) 48.1 % (21.0-51.0); MEAN CORPUSCULAR HEMOGLOBIN 30.4 pg (27.0-33.0); MEAN CORPUSCULAR HGB CONC 34.8 g/dL (32.0-36.0); MEAN CORPUSCULAR VOLUME 87.3 fL (79-99); MONOCYTES # (AUTO) 0.6 K/uL (0.1-1.0); MONOCYTES % (AUTO) 10.1 % (3.0-13.0); NEUTROPHILS # (AUTO) 2.5 K/uL (1.8-7.7); NEUTROPHILS % (AUTO) 40.2 % (40.0-77.0); PLATELET COUNT (AUTO) 179 K/uL (130-400); RED BLOOD CELL COUNT(AUTO) 4.71 MIL/uL (4.50-6.20); RED CELL DISTRIBUTION WIDTH 13.9 % (11.0-15.5); WHITE BLOOD COUNT (AUTO) 6.2 K/uL (4.8-10.8)
[2023-08-25 07:22] LABS: APPEARANCE,URINE CLEAR (CLEAR); BILIRUBIN,URINE NEGATIVE (NEGATIVE); COLOR,URINE COLORLESS (YELLOW); GLUCOSE, URINE (UA) NEGATIVE (NEGATIVE); KETONES,URINE NEGATIVE (NEGATIVE); LEUKOCYTE ESTERASE ,URINE NEGATIVE Leu/uL (NEGATIVE); NITRATE,URINE NEGATIVE (NEGATIVE); OCCULT BLOOD,URINE NEGATIVE (NEGATIVE); PH,URINE 6.5 (5.0-8.0); PROTEIN,URINE NEGATIVE (NEGATIVE); UROBILINOGEN,URINE 0.2 mg/dL (0.2-1.0)
[2023-08-25 07:26] LABS: ADD UA MICROSCOPIC NO
[2023-08-25 07:30] LABS: ALBUMIN 3.4 g/dL (3.5-5.0); BILIRUBIN,TOTAL 0.7 mg/dL (0.2-1.0); TOTAL PROTEIN, SERUM 6.9 g/dL (6.0-8.3)
[2023-08-25 07:40] VITALS: BP 131/74; PULSE 69; RESP 17; O2SAT 96
== END 2023-08-25 08:42 | disposition home or self-care (01) ==
LOC: EDH 05:49
DX: E11.649 Type 2 diabetes mellitus with hypoglycemia without coma (principal); F41.9 Anxiety disorder, unspecified; N39.0 Urinary tract infection, site not specified; E03.9 Hypothyroidism, unspecified; E78.00 Pure hypercholesterolemia, unspecified; I10 Essential (primary) hypertension; Z79.82 Long term (current) use of aspirin; Z79.84 Long term (current) use of oral hypoglycemic drugs; Z79.890 Hormone replacement therapy; Z79.899 Other long term (current) drug therapy; Z85.828 Personal history of other malignant neoplasm of skin; Z88.0 Allergy status to penicillin; Z88.5 Allergy status to narcotic agent; Z95.1 Presence of aortocoronary bypass graft
CPT/HCPCS: 36415; 80053; 81003; 82948; 85025

== ENCOUNTER 2023-09-07 09:36 | Emergency (ER) | payer OTHER, MEDICARE ==
[~2023-09-07] VITALS: Ht 172.7 cm; Wt 116.6 kg
[2023-09-07 09:37] VITALS: BP 146/86; PULSE 87; RESP 18
[2023-09-07 11:24] LABS: APPEARANCE,URINE CLEAR (CLEAR); BILIRUBIN,URINE NEGATIVE (NEGATIVE); GLUCOSE, URINE (UA) NEGATIVE (NEGATIVE); KETONES,URINE NEGATIVE (NEGATIVE); LEUKOCYTE ESTERASE ,URINE NEGATIVE Leu/uL (NEGATIVE); NITRATE,URINE NEGATIVE (NEGATIVE); OCCULT BLOOD,URINE MODERATE (NEGATIVE); PROTEIN,URINE NEGATIVE (NEGATIVE); UROBILINOGEN,URINE 0.2 mg/dL (0.2-1.0)
[2023-09-07 11:25] LABS: ADD UA MICROSCOPIC YES; COLOR,URINE STRAW (YELLOW)
[2023-09-07 11:27] LABS: RBC,URINE 0-1 /HPF (0-1); WBC,URINE 0-1 /HPF (0-1)
[2023-09-07 11:41] LABS: BASOPHILS # (AUTO) 0.02 K/uL (0.00-0.20); BASOPHILS % (AUTO) 0.4 % (0.0-5.0); EOSINOPHILS # (AUTO) 0.02 K/uL (0.00-0.70); EOSINOPHILS % (AUTO) 0.4 % (0.0-8.0); HEMATOCRIT 42.2 % (42-54); IMMATURE GRANULOCYTE ABSOLUTE 0.01 K/uL (0-1); LYMPHOCYTES # (AUTO) 1.7 K/uL (1.0-4.8); LYMPHOCYTES % (AUTO) 36.3 % (21.0-51.0); MEAN CORPUSCULAR HEMOGLOBIN 30.2 pg (27.0-33.0); MEAN CORPUSCULAR HGB CONC 34.6 g/dL (32.0-36.0); MEAN CORPUSCULAR VOLUME 87.4 fL (79-99); MONOCYTES # (AUTO) 0.4 K/uL (0.1-1.0); MONOCYTES % (AUTO) 9.4 % (3.0-13.0); NEUTROPHILS # (AUTO) 2.4 K/uL (1.8-7.7); NEUTROPHILS % (AUTO) 53.3 % (40.0-77.0); PLATELET COUNT (AUTO) 197 K/uL (130-400); RED BLOOD CELL COUNT(AUTO) 4.83 MIL/uL (4.50-6.20); RED CELL DISTRIBUTION WIDTH 13.8 % (11.0-15.5); WHITE BLOOD COUNT (AUTO) 4.6 K/uL (4.8-10.8)
[2023-09-07] MEDS ORDERED: LEVO-70 PO (16:24)
== END 2023-09-07 12:34 | disposition home or self-care (01) ==
LOC: EDH 09:36
DX: R33.9 Retention of urine, unspecified (principal); Z44.8 Encounter for fitting and adjustment of other external prosthetic devices; E11.9 Type 2 diabetes mellitus without complications; I10 Essential (primary) hypertension; E78.00 Pure hypercholesterolemia, unspecified; E03.9 Hypothyroidism, unspecified; Z79.82 Long term (current) use of aspirin; Z79.84 Long term (current) use of oral hypoglycemic drugs; Z79.899 Other long term (current) drug therapy; Z98.890 Other specified postprocedural states; Z88.0 Allergy status to penicillin; Z88.5 Allergy status to narcotic agent; Z88.8 Allergy status to other drugs, medicaments and biological substances
CPT/HCPCS: 36415; 80048; 81001; 85025

== ENCOUNTER 2023-09-07 15:37 | Emergency (ER) | payer OTHER, MEDICARE ==
[~2023-09-07] VITALS: Ht 172.7 cm; Wt 71.7 kg
[2023-09-07 15:41] VITALS: BP 150/80; PULSE 86; RESP 18
[2023-09-07 16:01] LABS: ADD UA MICROSCOPIC YES; APPEARANCE,URINE CLOUDY (CLEAR); BILIRUBIN,URINE SMALL mg/dL (NEGATIVE); COLOR,URINE RED (YELLOW); GLUCOSE, URINE (UA) NEGATIVE (NEGATIVE); KETONES,URINE 5 mg/dL (NEGATIVE); LEUKOCYTE ESTERASE ,URINE MODERATE Leu/uL (NEGATIVE); NITRATE,URINE POSITIVE (NEGATIVE); OCCULT BLOOD,URINE LARGE (NEGATIVE); PH,URINE 6.5 (5.0-8.0); PROTEIN,URINE 100 mg/dL (NEGATIVE)
[2023-09-07 16:04] LABS: RBC,URINE >100 /HPF (0-1)
[2023-09-07 16:05] LABS: BACTERIA,URINE Few /HPF (None Seen)
[2023-09-07] MEDS ORDERED: LEVO-70 PO (16:24)
[2023-09-07] MEDS: LEVOFLOXACIN 500 MG TABLET PO SCH (16:47)
== END 2023-09-07 16:53 | disposition home or self-care (01) ==
LOC: EDH 15:37
DX: N30.01 Acute cystitis with hematuria (principal); I10 Essential (primary) hypertension; E11.9 Type 2 diabetes mellitus without complications; E78.00 Pure hypercholesterolemia, unspecified; E03.9 Hypothyroidism, unspecified; Z79.82 Long term (current) use of aspirin; Z79.84 Long term (current) use of oral hypoglycemic drugs; Z79.899 Other long term (current) drug therapy; Z85.828 Personal history of other malignant neoplasm of skin; Z98.890 Other specified postprocedural states; Z95.1 Presence of aortocoronary bypass graft; Z88.0 Allergy status to penicillin; Z88.5 Allergy status to narcotic agent; Z88.8 Allergy status to other drugs, medicaments and biological substances
CPT/HCPCS: 81001; 87088

== ENCOUNTER 2023-09-27 15:38 | Emergency (ER) | payer OTHER, MEDICARE ==
[~2023-09-27] VITALS: Ht 172.7 cm; Wt 115.7 kg
[~2023-09-27 15:38] MED LIST changes: +LEVO-70 PO
[2023-09-27 16:30] LABS: BASOPHILS # (AUTO) 0.04 K/uL (0.00-0.20); BASOPHILS % (AUTO) 0.6 % (0.0-5.0); EOSINOPHILS % (AUTO) 1.4 % (0.0-8.0); HEMATOCRIT 40.2 % (42-54); IMMATURE GRANULOCYTE ABSOLUTE 0.01 K/uL (0-1); MEAN CORPUSCULAR HEMOGLOBIN 30.6 pg (27.0-33.0); MEAN CORPUSCULAR HGB CONC 33.8 g/dL (32.0-36.0); MEAN CORPUSCULAR VOLUME 90.3 fL (79-99); MONOCYTES # (AUTO) 0.9 K/uL (0.1-1.0); MONOCYTES % (AUTO) 12.4 % (3.0-13.0); NEUTROPHILS # (AUTO) 3.9 K/uL (1.8-7.7); NEUTROPHILS % (AUTO) 56.5 % (40.0-77.0); PLATELET COUNT (AUTO) 224 K/uL (130-400); RED BLOOD CELL COUNT(AUTO) 4.45 MIL/uL (4.50-6.20); WHITE BLOOD COUNT (AUTO) 6.9 K/uL (4.8-10.8)
[2023-09-27 16:56] LABS: ALBUMIN 3.2 g/dL (3.5-5.0); BILIRUBIN,TOTAL 0.6 mg/dL (0.2-1.0)
[2023-09-27 17:02] LABS: APPEARANCE,URINE CLEAR (CLEAR); BILIRUBIN,URINE NEGATIVE (NEGATIVE); COLOR,URINE COLORLESS (YELLOW); GLUCOSE, URINE (UA) NEGATIVE (NEGATIVE); KETONES,URINE NEGATIVE (NEGATIVE); LEUKOCYTE ESTERASE ,URINE 25 Leu/uL (NEGATIVE); NITRATE,URINE NEGATIVE (NEGATIVE); OCCULT BLOOD,URINE NEGATIVE (NEGATIVE); PH,URINE 6.5 (5.0-8.0); PROTEIN,URINE NEGATIVE (NEGATIVE); UROBILINOGEN,URINE 0.2 mg/dL (0.2-1.0)
[2023-09-27 17:09] LABS: ADD UA MICROSCOPIC YES
[2023-09-27 17:12] LABS: BACTERIA,URINE RARE /HPF (None Seen); RBC,URINE 0-1 /HPF (0-1)
[2023-09-27] MEDS ORDERED: IOHEXOL-350 75 ML VIAL IV ONE (17:24)
[2023-09-27] MEDS ORDERED: CEFP200T14 PO (18:34)
[2023-09-27] MEDS: 0.9%NACL 1000ML 1,000 ML IV SCH (18:55)
[2023-09-27] MEDS: PHARMACY COMMUNICATION MISC SCH (19:00)
[2023-09-27] MEDS: CEFTRIAXONE 1G VIAL IVPB SCH (19:44)
[2023-09-27 20:06] VITALS: BP 134/74; PULSE 74; RESP 20; O2SAT 97
== END 2023-09-27 20:26 | disposition home or self-care (01) ==
LOC: EDH 15:38
DX: N39.0 Urinary tract infection, site not specified (principal); I10 Essential (primary) hypertension; E11.9 Type 2 diabetes mellitus without complications; E78.00 Pure hypercholesterolemia, unspecified; E03.9 Hypothyroidism, unspecified; Z79.82 Long term (current) use of aspirin; Z79.84 Long term (current) use of oral hypoglycemic drugs; Z79.899 Other long term (current) drug therapy; Z98.890 Other specified postprocedural states; Z88.0 Allergy status to penicillin; Z88.5 Allergy status to narcotic agent; Z88.8 Allergy status to other drugs, medicaments and biological substances
CPT/HCPCS: 99285; 74177; 96365; 82550; 84484; 80053; 83690; 85025; 83605; 81001; 36415; 51702; 84145; 93005; J0696; Q9967

== ENCOUNTER → 2023-10-29 | Outpatient (CLI) | payer OTHER, MEDICARE ==
[~2023-10-29] MED LIST changes: +CEFP200T14 PO
[2023-10-29 09:51] LABS: BASOPHILS # (AUTO) 0.03 K/uL (0.00-0.20); BASOPHILS % (AUTO) 0.5 % (0.0-5.0); EOSINOPHILS % (AUTO) 1.7 % (0.0-8.0); HEMATOCRIT 39.1 % (42-54); IMMATURE GRANULOCYTE ABSOLUTE 0.02 K/uL (0-1); LYMPHOCYTES # (AUTO) 2.2 K/uL (1.0-4.8); MEAN CORPUSCULAR HEMOGLOBIN 30.9 pg (27.0-33.0); MEAN CORPUSCULAR HGB CONC 33.2 g/dL (32.0-36.0); MEAN CORPUSCULAR VOLUME 92.9 fL (79-99); MONOCYTES # (AUTO) 0.7 K/uL (0.1-1.0); MONOCYTES % (AUTO) 12.1 % (3.0-13.0); NEUTROPHILS # (AUTO) 2.8 K/uL (1.8-7.7); NEUTROPHILS % (AUTO) 48.4 % (40.0-77.0); PLATELET COUNT (AUTO) 205 K/uL (130-400); RED BLOOD CELL COUNT(AUTO) 4.21 MIL/uL (4.50-6.20); RED CELL DISTRIBUTION WIDTH 14.5 % (11.0-15.5); WHITE BLOOD COUNT (AUTO) 5.9 K/uL (4.8-10.8)
[2023-10-29 09:57] LABS: CREATININE 0.9 mg/dL (0.5-1.3); POTASSIUM 4.5 mmol/L (3.5-5.1)
== END | disposition home or self-care (01) ==
LOC: LAB 09:05
PROVIDERS: ATTEND Urology
DX: R10.9 Unspecified abdominal pain (principal)
CPT/HCPCS: 36415; 80048; 85025

== ENCOUNTER → 2023-11-04 | Outpatient (CLI) | payer OTHER, MEDICARE ==
[~2023-11-04] MED LIST changes: +IOHEXOL-350 75 ML VIAL IV ONE
== END | disposition home or self-care (01) ==
LOC: RAH 09:53
PROVIDERS: ATTEND Urology
DX: K80.20 Calculus of gallbladder without cholecystitis without obstruction (principal); R10.9 Unspecified abdominal pain
CPT/HCPCS: 74178; Q9967

== ENCOUNTER → 2023-11-18 | Outpatient (CLI) | payer OTHER, MEDICARE ==
[~2023-11-18] MED LIST changes: -IOHEXOL-350 75 ML VIAL IV ONE
== END | disposition home or self-care (01) ==
LOC: SHCH 14:07
PROVIDERS: ATTEND Internal Medicine Cardiovascular Disease
DX: R42 Dizziness and giddiness (principal)
CPT/HCPCS: 93306

== ENCOUNTER → 2024-02-04 | Outpatient (CLI) | payer OTHER, MEDICARE ==
[2024-02-04 12:42] LABS: CREATININE 1.1 mg/dL (0.5-1.3); POTASSIUM 3.9 mmol/L (3.5-5.1)
== END | disposition home or self-care (01) ==
LOC: LAB 10:26
PROVIDERS: ATTEND Internal Medicine Cardiovascular Disease
DX: I10 Essential (primary) hypertension (principal)
CPT/HCPCS: 36415; 80048

== ENCOUNTER 2024-03-13 11:50 | Emergency (ER) | payer OTHER, MEDICARE ==
[~2024-03-13] VITALS: Ht 172.7 cm; Wt 112.9 kg
[2024-03-13 13:43] LABS: BASOPHILS # (AUTO) 0.03 K/uL (0.00-0.20); BASOPHILS % (AUTO) 0.6 % (0.0-5.0); EOSINOPHILS # (AUTO) 0.02 K/uL (0.00-0.70); EOSINOPHILS % (AUTO) 0.4 % (0.0-8.0); HEMATOCRIT 41.1 % (42-54); IMMATURE GRANULOCYTE ABSOLUTE 0.01 K/uL (0-1); LYMPHOCYTES # (AUTO) 1.8 K/uL (1.0-4.8); LYMPHOCYTES % (AUTO) 34.1 % (21.0-51.0); MEAN CORPUSCULAR HEMOGLOBIN 30.3 pg (27.0-33.0); MEAN CORPUSCULAR VOLUME 86.5 fL (79-99); MONOCYTES # (AUTO) 0.6 K/uL (0.1-1.0); MONOCYTES % (AUTO) 11.1 % (3.0-13.0); NEUTROPHILS # (AUTO) 2.9 K/uL (1.8-7.7); NEUTROPHILS % (AUTO) 53.6 % (40.0-77.0); PLATELET COUNT (AUTO) 189 K/uL (130-400); RED BLOOD CELL COUNT(AUTO) 4.75 MIL/uL (4.50-6.20); RED CELL DISTRIBUTION WIDTH 14.3 % (11.0-15.5); WHITE BLOOD COUNT (AUTO) 5.3 K/uL (4.8-10.8)
[2024-03-13 13:52] LABS: CREATININE 0.9 mg/dL (0.5-1.3); POTASSIUM 3.6 mmol/L (3.5-5.1)
[2024-03-13 15:17] LABS: APPEARANCE,URINE CLEAR (CLEAR); BILIRUBIN,URINE NEGATIVE (NEGATIVE); COLOR,URINE LIGHT-YELLOW (YELLOW); GLUCOSE, URINE (UA) NEGATIVE (NEGATIVE); KETONES,URINE 10 mg/dL (NEGATIVE); LEUKOCYTE ESTERASE ,URINE NEGATIVE Leu/uL (NEGATIVE); NITRATE,URINE NEGATIVE (NEGATIVE); OCCULT BLOOD,URINE NEGATIVE (NEGATIVE); PROTEIN,URINE NEGATIVE (NEGATIVE); UROBILINOGEN,URINE 0.2 mg/dL (0.2-1.0)
[2024-03-13 15:19] LABS: ADD UA MICROSCOPIC NO
[2024-03-13] MEDS ORDERED: HYDR100C2 PO (16:01)
[2024-03-13] MEDS ORDERED: DICY20TA2 PO (16:23)
[2024-03-13 16:36] VITALS: BP 132/68; PULSE 75; RESP 16; TEMP 97.8; O2SAT 97
== END 2024-03-13 16:38 | disposition home or self-care (01) ==
LOC: EDH 11:50
DX: G47.00 Insomnia, unspecified (principal); E87.1 Hypo-osmolality and hyponatremia; R53.1 Weakness; E03.9 Hypothyroidism, unspecified; E11.9 Type 2 diabetes mellitus without complications; E78.00 Pure hypercholesterolemia, unspecified; I11.9 Hypertensive heart disease without heart failure; Z79.82 Long term (current) use of aspirin; Z79.84 Long term (current) use of oral hypoglycemic drugs; Z79.890 Hormone replacement therapy; Z79.899 Other long term (current) drug therapy; Z88.0 Allergy status to penicillin; Z88.5 Allergy status to narcotic agent; Z95.1 Presence of aortocoronary bypass graft; Z98.890 Other specified postprocedural states
CPT/HCPCS: 36415; 74018; 80048; 81003; 83690; 84484; 85025; 93005

== ENCOUNTER 2024-04-28 05:40 | Emergency (ER) | payer OTHER, MEDICARE ==
[~2024-04-28] VITALS: Ht 172.7 cm; Wt 109.3 kg
[~2024-04-28 05:40] MED LIST changes: +DICY20TA2 PO; +HYDR100C2 PO; +METF-1150 PO; -METF-890 PO
--- NOTE | 2024-04-28 06:47 | EKG ---
[facility] Test Date: 2024-04-28 Test Time: 06:43:43 Pat Name: JOSEPH VINCENT Department: ED Room: Gender: M Health Care Coordinator: [id number] : 1950 Requested By: LAMBERT HUNT Order Number: [id number] Reading MD: Brandon Capps Measurements Intervals [place] Rate: 72 P: 45 WI: 151 QRS: -11 QRSD: 106 T: 4 QT: 411 QTc: 450 Interpretive Statements Sinus rhythm Nonspecific T abnormalities, lateral leads Compared to ECG 03/13/2024 13:11:49 No significant changes Electronically Signed On 04-28-2024 20:55:11 ENGINE[employer]ED WOOD DESIGNER by Brandon Capps Please click the below link to view image of tracing.
--- NOTE | 2024-04-28 06:48 | ERN ---
ED Note History of Present Illness Stated Complaint: C/O PAIN TO HEAD AND NECK X 1 WK Chief Complaint: Headache Time Seen by MD: 05:49 Dictation: Mr. Hebert is a 74-year-old very pleasant male who presented to the emergency room with complaints of a fall 3 days ago and pain in the left temporal area as well as neck. He stated that he tried to manage it but the pain in the neck as well as the left temporal headache got worse and hence he came into the ER for evaluation. He saw his primary care physician yesterday who thought that the patient perhaps had orthostatic hypotension when he got up suddenly and fell forward and hit the left side of the head on a book shelf no loss of consciousness. He did state that he had nausea and vomited once he has bilateral tinnitus. And at times he is unsteady when he is walking Temperature 97.5 pulse 81 respirations 20 blood pressure 143/84 pulse oximetry 97% on room air His chronic medical problems include diabetes mellitus, hypertension, coronary artery disease status post stents and CABG, hypothyroidism, gastroesophageal reflux disease, irritable bowel syndrome Allergies: Coded Allergies: Penicillins (Unverified Allergy, Unknown, 12/15/16) codeine (Unverified Allergy, Unknown, 12/15/16) hydrochlorothiazide (Unverified Allergy, Unknown, 12/15/16) morphine (Unverified Allergy, Unknown, 12/15/16) propoxyphene (Unverified Allergy, Unknown, 12/15/16) Home Meds Active Scripts Dicyclomine HCl (Bentyl) 20 Mg Tab, 1 TAB PO QID for irritable bowel symptoms for 30 Days, #120 TAB 0 Refills Prov:ABIOLA WALLACE NP 03/13/24 Hydroxyzine Pamoate (Hydroxyzine Pamoate) 100 Mg Capsule, 1 CAP PO HS for 30 Days, #30 CAP 0 Refills Prov:ABIOLA WALLACE NP 03/13/24 Cefpodoxime Proxetil (Cefpodoxime Proxetil) 200 Mg Tablet, 200 MG PO BID for 10 Days, #20 TAB Prov:RENE COSME DO 09/27/23 Levofloxacin (Levofloxacin) 500 Mg Tablet, 500 MG PO DAILY for 7 Days, #7 TAB Prov:ABIOLA WALLACE NP 09/07/23 Pindolol (Pindolol) 10 Mg Tablet, 5 MG PO DAILY for 30 Days, #30 TAB 0 Refills Prov:ANGELA GANDHI MD 08/04/23 Doxycycline Hyclate (Doxycycline Hyclate) 100 Mg Tablet.dr, 100 MG PO BID, #20 TAB Prov:JASON SCHNEIDER MD 07/05/23 Mupirocin (Mupirocin Ointment) 2 % Oint, 1 APPLIC TP BID for 10 Days, #30 G Prov:JUDAH WALSH 06/14/23 Clindamycin HCl (Clindamycin HCl) 300 Mg Capsule, 1 CAP PO TID for 10 Days, #30 CAP 0 Refills Prov:JUDAH WALSH 06/14/23 Meloxicam, Submicronized (Meloxicam) 10 Mg Capsule, 10 MG PO DAILY PRN for PAIN, #30 CAP Prov:JASON SCHNEIDER MD 06/05/23 Amlodipine Besylate (Norvasc 2.5MG Tab) 2.5 Mg Tablet, 2.5 MG PO DAILY, #30 TAB Prov:JASON SCHNEIDER MD 06/04/23 Famotidine (Pepcid) 20 Mg Tablet, 20 MG PO DAILY, #15 TAB 0 Refills Prov:ANGELA GANDHI MD 07/19/22 Nitroglycerin (Nitrostat) 0.4 Mg Tab.subl, 0.4 MG SL AD for 25 Days, #25 TAB.SL Prov:CHRISTELLE MCCALL Jr., MD 10/13/18 Reported Medications Meclizine HCl (Meclizine HCl) 12.5 Mg Tablet, 12.5 MG PO HS, TAB 08/02/22 Metformin HCl (Metformin HCl ER) 500 Mg [id number], 500 MG PO BID 08/02/22 Metoprolol Succinate (Metoprolol Succinate) 25 Mg Tab.er.24h, 25 MG PO BID, TAB 08/02/22 Doxazosin Mesylate (Doxazosin Mesylate) 8 Mg Tablet, 8 MG PO DAILY, TAB 08/02/22 Magnesium (Magnesium) 250 Mg Tablet, 250 MG PO HS, TAB 02/02/22 Ranolazine (RANEXA) 500 Mg Tab.er.12h, 500 MG PO BID, TAB 02/02/22 Aspirin (ASPIRIN 81 MG ECTAB) 81 Mg Ectab, 81 MG PO DAILY, TAB.EC 02/15/21 Atorvastatin Calcium (LIPITOR) 40 Mg Tablet, 40 MG PO DAILY, TAB 12/08/18 Lorazepam (Lorazepam) 0.5 Mg Tablet, 0.5 MG PO BID PRN for SLEEP, TAB 12/08/18 Acarbose (Acarbose) 25 Mg Tablet, 25 MG PO BID, TAB 12/16/16 Levothyroxine Sodium (Synthroid 50 Mcg Tab) 50 Mcg Tablet, 50 MCG PO DAILY, TAB 12/16/16 Dutasteride (Dutasteride) 0.5 Mg Capsule, 0.5 MG PO DAILY, CAP 12/16/16 Past Medical History Past Medical History: Arthritis, CAD, Diabetes-Type II, GERD, Heart Disease, H ypertension, IBS, Other Additional Past Medical Hx: QUADRUPLE BYPASS; HX OF SKIN CA; TINNITIS; HERNIA Surgical History: Other Surgical History Other: QUADRUPLE BYPASS; CARDIAC STENT Family History: CAD, DM, HTN Social History: Negative, Lives with family RN Note Reviewed/Agreed w/PFSH: Yes Review of System Dictation As described in the history of present illness Constitutional: Negative for fever,chills, and weight loss Eyes: Negative for injury, pain,redness, and discharge ENT: Negative for injury,pain or swelling Cardiovascular: Negative for chest pain, palpitations, and edema Respiratory: Negative for shortness of breath, cough, and wheezing, Abdomen/GI: Negative for abdominal pain, nausea, vomiting, diarrhea, and c onstipation Back: Negative for injury and pain : Negative for injury, bleeding and discharge MS/Extremity: Negative for injury and deformity Skin: Negative for rash, and discoloration Neuro: Negative for headache, weakness, numbness, tingling, and seizure Psych: Negative for suicide ideation, homicidal ideation, and hallucinations Initial Vital Sign VS Vital Signs Date Time Temp Pulse Resp B/P (MAP) Pulse Ox O2 Delivery O2 Flow Rate FiO2 04/28/24 05:42 97.5 81 20 143/84 98 Room Air 04/28/24 07:00 0 21 Physical Exam Dictation General: awake, alert, NAD Head/Face: Normocephalic, atraumatic tenderness in the left temporal area Eyes: PERRL, EOMI, vision at baseline ENT: oral cavity clear, TMs clear, no signs of infection Neck: Trachea midline, supple, no nuchal rigidity lower neck area muscle soreness Cardiovascular: RRR, normal S1/S2, No MRGs, no JVD Respiratory: CTAB, no respiratory distress, No rales or wheezes Abdomen: Soft, non-tender, non-distended, normal bowel sounds, no guarding or rebound. Skin: Warm, dry, normal turgor, no rash MS/Extremity: Pulses equal, no cyanosis, neurovascular intact, FROM Neuro: COAx4, GCS 15, strength 5/5, CN 2-12 intact, normal cerebellar exam, no rmal gait, Psych: Normal behavior, mood, and affect normal Extremities-trace edema without any palpable cords, Homans sign is negative Results (Laboratory/Radiology) Laboratory/Radiology Laboratory Tests Test 04/28/24 06:49 White Blood Count 4.8 K/uL (4.8-10.8) Red Blood Count 4.11 MIL/uL (4.50-6.20) L Hemoglobin 13.1 g/dL (14.0-18.0) L Hematocrit 37.7 % (42-54) L Mean Corpuscular Volume 91.7 fL (79-99) Mean Corpuscular Hemoglobin 31.9 pg (27.0-33.0) Mean Corpuscular Hemoglobin Concent 34.7 g/dL (32.0-36.0) Red Cell Distribution Width 14.9 % (11.0-15.5) Platelet Count 201 K/uL (130-400) Mean Platelet Volume 10.5 fL (7.5-10.5) Immature Granulocyte % (Auto) 0.4 % (0-1) Neutrophils (%) (Auto) 48.4 % (40.0-77.0) Lymphocytes (%) (Auto) 38.9 % (21.0-51.0) Monocytes (%) (Auto) 11.1 % (3.0-13.0) Eosinophils (%) (Auto) 0.6 % (0.0-8.0) Basophils (%) (Auto) 0.6 % (0.0-5.0) Neutrophils # (Auto) 2.3 K/uL (1.8-7.7) Lymphocytes # (Auto) 1.9 K/uL (1.0-4.8) Monocytes # (Auto) 0.5 K/uL (0.1-1.0) Eosinophils # (Auto) 0.03 K/uL (0.00-0.70) Basophils # (Auto) 0.03 K/uL (0.00-0.20) Absolute Immature Granulocyte (auto 0.02 K/uL (0-1) Nucleated Red Blood Cells 0.0 % (0.0-0.19) Sodium Level 136 mmol/L (136-145) Potassium Level 3.5 mmol/L (3.5-5.1) Chloride Level 102 mmol/L (101-111) Carbon Dioxide Level 27 mmol/L (21-32) Blood Urea Nitrogen 8 mg/dL (7-18) Creatinine 0.9 mg/dL (0.5-1.3) Glomerular Filtration Rate Calc 89 mL/min (>90) Random Glucose 129 mg/dL (70-105) H Total Calcium 9.1 mg/dL (8.5-10.1) Total Creatine Kinase 138 U/L (21-232) Troponin I High Sensitivity 5.4 ng/L (4-75) B-Type Natriuretic Peptide 37 pg/mL (0-100) Labs Reviewed?: Yes EKG Comment: Twelve lead EKG done on 04/28/2024 at 6:43 a.m. showed a sinus rhythm with a h eart rate of 72 AR interval 151, QRS 106, QT/QTC 411/450. Impression normal sinus rhythm with nonspecific STT wave changes. Q-waves noted in the inferior leads suggestive of perhaps previous LA ST flattening in the anterior leads noted. Interpreted by ER MD Barber ED Course ED Course Orders Procedure Category Date Status Time Ct Head/Brain W/O CT 04/28/24 Resulted Contrast 06:37 Ct Cervical Spine W/O CT 04/28/24 Resulted Contrast 06:37 Cbc With Differential LAB 04/28/24 Complete 06:37 Basic Metabolic Panel LAB 04/28/24 Complete 06:37 Cardiac Panel LAB 04/28/24 Complete 06:37 12 Lead Ekg Tracing- EKG 04/28/24 Complete Technical 06:37 B-Type Natriuretic LAB 04/28/24 Complete Peptide 06:37 Ondansetron 4mg Inj PHA 04/28/24 Complete (Zofran 4mg Inj) 07:00 Ketorolac PHA 04/28/24 Complete Tromethamine 15mg/Ml 07:00 Chest 1vw RAD 04/28/24 Resulted 08:13 Current Medications Medications (Trade) Dose Ordered Sig/Martin Route PRN Reason Start Time Stop Time Status Last Admin Dose Admin Ketorolac Tromethamine (toRADol) 15 mg ONCE ONCE IV 04/28/24 07:00 04/28/24 07:01 DC Ondansetron HCl (zoFRAN 4MG INJ) 4 mg ONCE ONCE IVP 04/28/24 07:00 04/28/24 07:01 DC 04/28/24 07:26 Vital Signs Date Time Temp Pulse Resp B/P (MAP) Pulse Ox O2 Delivery O2 Flow Rate FiO2 04/28/24 09:07 98.8 61 19 118/61 98 Room Air* 0 21 04/28/24 08:00 98.8 66 19 124/63 98 Room Air* 0 21 04/28/24 07:00 98.8 64 19 122/67 99 Room Air* 0 21 04/28/24 05:42 97.5 81 20 143/84 98 Room Air We will perform diagnostic labs, advanced imaging and administer medications according to the patient's complaint. Once the results are available, will review and personally interpreted the labs to rule out any acute life- threatening emergency the trach require immediate intervention and treatment. I will then re-evaluate the patient after treatment and diagnostic exams have return to determine whether the patient requires any further testing, can safely be discharged home or need further admission to hospital for additional treatment and evaluation. Medical Decision Making MDM MDM: Differential diagnosis: Subdural bleed, fall, head injury 0735- Transfer center, phone call 09- transfer Center, phone call 09- Neurosurgery consult 09- ER Physician at [facility] [place] accepts patient for ER to ER transfer Rationale: Tests considered and ordered secondary to shared decision making include: labs, ECG and radiology Risk of complication and/or morbidity or mortality of patient management: None Medications-Per medication reconciliation Need for hospitalization: Patient does meet criteria for hospitalization. Patient will be transferred to [facility]. Need for emergency major/minor surgery: No There are no social concerns with this patient. I independently interpreted the test that were performed, results were reviewed by me and considered findings on radiology if ordered. Medical management and examination interpretation discussions were had by me with other qualified healthcare professionals as indicated for the patient's care. Problem List Problem List: (1) Closed head injury (2) Lightheaded (3) History of hypertension (4) Diabetes (5) History of coronary artery disease (6) Morbid obesity with BMI of 45.0-49.9, adult (7) Aneurysm of infrarenal abdominal aorta (8) Orthostatic dizziness Critical Care Note Critical Time: other (Total critical care time was 33 minutes. Excluding time for procedures. Management of critically ill patient with concern for acute decompensation. 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 (Entered by Reece Winn, acting as a scribe for Dr. De La O) I personally scribed for LAMBERT HUNT MD (ALESIA) on 04/28/24 at 07:53. Electronically submitted by Reece Winn ([email or web address]). I personally scribed for LAMBERT HUNT MD (ALESIA) on 04/28/24 at 09:26. Electronically submitted by Reece Winn (ANA). I personally scribed for LAMBERT HUNT MD (ALESIA) on 04/28/24 at 09:31. Electronically submitted by Reece Winn (ANA). LAMBERT HUNT MD Apr 28, 2024 06:48
--- NOTE | 2024-04-28 07:00 | NUR ---
Pt arrived to ED via POV from home; c/c fall; onset several days [employer] WORK[employer]; PT shows no sign of distress or discomfort at this time; GCS15/RTS12/NIH0/A&Ox4
[2024-04-28] MEDS: ondanSETRON 4MG INJ IVP ONE (07:26)
[2024-04-28 07:32] LABS: BASOPHILS # (AUTO) 0.03 K/uL (0.00-0.20); BASOPHILS % (AUTO) 0.6 % (0.0-5.0); EOSINOPHILS # (AUTO) 0.03 K/uL (0.00-0.70); EOSINOPHILS % (AUTO) 0.6 % (0.0-8.0); HEMATOCRIT 37.7 % (42-54); IMMATURE GRANULOCYTE ABSOLUTE 0.02 K/uL (0-1); LYMPHOCYTES # (AUTO) 1.9 K/uL (1.0-4.8); LYMPHOCYTES % (AUTO) 38.9 % (21.0-51.0); MEAN CORPUSCULAR HEMOGLOBIN 31.9 pg (27.0-33.0); MEAN CORPUSCULAR HGB CONC 34.7 g/dL (32.0-36.0); MEAN CORPUSCULAR VOLUME 91.7 fL (79-99); MONOCYTES # (AUTO) 0.5 K/uL (0.1-1.0); MONOCYTES % (AUTO) 11.1 % (3.0-13.0); NEUTROPHILS # (AUTO) 2.3 K/uL (1.8-7.7); NEUTROPHILS % (AUTO) 48.4 % (40.0-77.0); PLATELET COUNT (AUTO) 201 K/uL (130-400); RED BLOOD CELL COUNT(AUTO) 4.11 MIL/uL (4.50-6.20); RED CELL DISTRIBUTION WIDTH 14.9 % (11.0-15.5); WHITE BLOOD COUNT (AUTO) 4.8 K/uL (4.8-10.8)
[2024-04-28 07:47] LABS: CREATININE 0.9 mg/dL (0.5-1.3); POTASSIUM 3.5 mmol/L (3.5-5.1)
[2024-04-28] MEDS: ketOROlac 15MG/ML VIAL (15MG/ML) IV ONE (07:48)
--- NOTE | 2024-04-28 08:06 | HMCIMG ---
CT HEAD/BRAIN W/O CONTRAST HISTORY: Headaches COMPARISON: None TECHNIQUE: Multiple sequential axial images of the head were obtained from the base of the skull through vertex. Patient was not given contrast through intravenous route. FINDINGS: The ventricles and extraventricular CSF spaces are dilated consistent with cerebral atrophy. Nonspecific white matter changes seen. There is no mass effect or herniation. There is acute on chronic left subdural hematoma measuring 10 mm. There is possible 1 mm midline shift towards right. No other acute intracranial bleed is seen. Visualized portion of the paranasal sinuses are grossly within normal limits. IMPRESSION: 1. 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 Possible 1 mm midline shift towards right. CT was performed with one or more following dose reduction techniques: automated exposure control, adjustment of the mA and kv according to patient's size, or use of a iterative reconstruction technique.
[2024-04-28 08:12] LABS: B-TYPE NATRIURETIC PEPTIDE 37 pg/mL (0-100)
--- NOTE | 2024-04-28 08:38 | HMCIMG ---
CT CERVICAL SPINE W/O CONTRAST HISTORY: Blunt injury COMPARISON: None TECHNIQUE: Multiple sequential axial images of the cervical spine were obtained including post processing sagittal and coronal reconstruction images. Patient was not given contrast through intravenous route. FINDINGS: There are degenerative changes with cervical spine spondylosis. Disc space narrowings are seen at C5-6 and C6-7 levels. Disc/osteophyte complex S as before, C5-6 and C6-7 levels. There is straightening of normal lordotic cervical curvature which may be related to muscle spasm or positioning. There is no loss of vertebral height. Evaluation for disc and cord pathology is limited with CT study. No evidence of fracture or dislocation is seen. IMPRESSION: 1. No fracture is seen. DJD. CT was performed with one or more following dose reduction techniques: automated exposure control, adjustment of the mA and kv according to patient's size, or use of a iterative reconstruction technique.
--- NOTE | 2024-04-28 09:01 | HMCIMG ---
CHEST 1VW HISTORY: Chest pain COMPARISON: 07/04/2023 FINDINGS: A frontal projection of the chest was obtained. Mild bilateral pulmonary infiltrates are seen may be related to mild pulmonary vascular congestion with possible superimposed pneumonitis. The heart is borderline enlarged. Degenerative changes are seen. No evidence of aortic calcification is seen. IMPRESSION: 1. Mild bilateral pulmonary infiltrates are seen may be related to mild pulmonary vascular congestion with possible superimposed pneumonitis.
[2024-04-28 09:07] VITALS: RESP 19
--- NOTE | 2024-04-28 10:00 | NUR ---
FIRST ATTEMPT TO CALL REPORT [facility] [place] JOHNE TO TAKE REPORT AT THIS TIME PLACED ON HOLD OVER 5 MIN AT THIS TIME
--- NOTE | 2024-04-28 10:16 | NUR ---
RTING AT THIS TIMEREPORT PROVIDED [facility] [place] ZION JACOBSON RN KRISTOPHER HERE AND DEPARTING AT THIS TIME
[2024-04-28 10:18] VITALS: BP 120/80; PULSE 58; TEMP 98.3; O2SAT 16
--- NOTE | 2024-04-28 10:19 | NUR ---
PT ALERT ORIENTED AND SHOWING NO VISABLE DISTRESS AT TIME OF TRANSFER
== END 2024-04-28 10:21 | disposition short-term general hospital (02) ==
LOC: EDH 05:40
DX: S09.90XA Unspecified injury of head, initial encounter (principal); R42 Dizziness and giddiness; E11.9 Type 2 diabetes mellitus without complications; E66.01 Morbid (severe) obesity due to excess calories; I10 Essential (primary) hypertension; I25.10 Atherosclerotic heart disease of native coronary artery without angina pectoris; K21.9 Gastro-esophageal reflux disease without esophagitis; Z68.42 Body mass index [BMI] 45.0-49.9, adult; Z79.82 Long term (current) use of aspirin; Z79.84 Long term (current) use of oral hypoglycemic drugs; Z79.890 Hormone replacement therapy; Z79.899 Other long term (current) drug therapy; Z85.828 Personal history of other malignant neoplasm of skin; Z88.0 Allergy status to penicillin; Z88.5 Allergy status to narcotic agent; Z95.5 Presence of coronary angioplasty implant and graft; W18.39XA Other fall on same level, initial encounter; Y93.89 Activity, other specified; Y92.89 Other specified places as the place of occurrence of the external cause; Y99.8 Other external cause status
CPT/HCPCS: 99291; 70450; 96374; 82550; 84484; 80048; 83880; 85025; 36415; 71045; 72125; 93005; J2405; J1885

== ENCOUNTER 2024-06-12 15:39 | Emergency (ER) | payer OTHER, MEDICARE ==
[~2024-06-12] VITALS: Ht 172.7 cm; Wt 109.8 kg
--- NOTE | 2024-06-12 15:49 | ERN ---
ED Note History of Present Illness Stated Complaint: FREQUENCY, LOWER ABD PAIN Chief Complaint: Urinary Frequency Time Seen by MD: 15:41 Dictation: PATIENT IS HERE WITH COMPLAINTS OF URINARY URGENCY FREQUENCY FOR THE LAST 2-3 DAYS. STATES HE IS HAVING SOME SUPRAPUBIC PAIN. HISTORY OF PROSTATE ENLARGEMENT, PATIENT OF . HE STATES HE HAD BEEN SEEN LATE LAST YEAR IN 2023 AT [facility] WITH GODINEZ CATHETER TAKEN OUT AND THEN WAS REMOVED BEFORE HE WAS DISCHARGED HOME. HE HAD AN APPOINTMENT WITH UROLOGIST IN MAY. NO FEVER NO CHILLS NO NAUSEA VOMITING NO FLANK PAIN. PATIENT NOTED TO BE DISTENDED IN TRIAGE. Allergies: Coded Allergies: Penicillins (Unverified Allergy, Unknown, 12/15/16) codeine (Unverified Allergy, Unknown, 12/15/16) hydrochlorothiazide (Unverified Allergy, Unknown, 12/15/16) morphine (Unverified Allergy, Unknown, 12/15/16) propoxyphene (Unverified Allergy, Unknown, 12/15/16) Home Meds Active Scripts Dicyclomine HCl (Bentyl) 20 Mg Tab, 1 TAB PO QID for irritable bowel symptoms for 30 Days, #120 TAB 0 Refills Prov:ABIOLA WALLACE NP 03/13/24 Hydroxyzine Pamoate (Hydroxyzine Pamoate) 100 Mg Capsule, 1 CAP PO HS for 30 Days, #30 CAP 0 Refills Prov:ABIOLA WALLACE NP 03/13/24 Cefpodoxime Proxetil (Cefpodoxime Proxetil) 200 Mg Tablet, 200 MG PO BID for 10 Days, #20 TAB Prov:RENE COSME DO 09/27/23 Levofloxacin (Levofloxacin) 500 Mg Tablet, 500 MG PO DAILY for 7 Days, #7 TAB Prov:ABIOLA WALLACE NP 09/07/23 Pindolol (Pindolol) 10 Mg Tablet, 5 MG PO DAILY for 30 Days, #30 TAB 0 Refills Prov:ANGELA GANDHI MD 08/04/23 Doxycycline Hyclate (Doxycycline Hyclate) 100 Mg Tablet., 100 MG PO BID, #20 TAB Prov:JASON SCHNEIDER MD 07/05/23 Mupirocin (Mupirocin Ointment) 2 % Oint, 1 APPLIC TP BID for 10 Days, #30 G Prov:JUDAH WALSH 06/14/23 Clindamycin HCl (Clindamycin HCl) 300 Mg Capsule, 1 CAP PO TID for 10 Days, #30 CAP 0 Refills Prov:JUDAH WALSH 06/14/23 Meloxicam, Submicronized (Meloxicam) 10 Mg Capsule, 10 MG PO DAILY PRN for PAIN, #30 CAP Prov:JASON SCHNEIDER MD 06/05/23 Amlodipine Besylate (Norvasc 2.5MG Tab) 2.5 Mg Tablet, 2.5 MG PO DAILY, #30 TAB Prov:JASON SCHNEIDER MD 06/04/23 Famotidine (Pepcid) 20 Mg Tablet, 20 MG PO DAILY, #15 TAB 0 Refills Prov:ANGELA GANDHI MD 07/19/22 Nitroglycerin (Nitrostat) 0.4 Mg Tab.subl, 0.4 MG SL AD for 25 Days, #25 TAB.SL Prov:CHRISTELLE MCCALL Jr., MD 10/13/18 Reported Medications Meclizine HCl (Meclizine HCl) 12.5 Mg Tablet, 12.5 MG PO HS, TAB 08/02/22 Metformin HCl (Metformin HCl ER) 500 Mg [id number], 500 MG PO BID 08/02/22 Metoprolol Succinate (Metoprolol Succinate) 25 Mg Tab.er.24h, 25 MG PO BID, TAB 08/02/22 Doxazosin Mesylate (Doxazosin Mesylate) 8 Mg Tablet, 8 MG PO DAILY, TAB 08/02/22 Magnesium (Magnesium) 250 Mg Tablet, 250 MG PO HS, TAB 02/02/22 Ranolazine (RANEXA) 500 Mg Tab.er.12h, 500 MG PO BID, TAB 02/02/22 Aspirin (ASPIRIN 81 MG ECTAB) 81 Mg Ectab, 81 MG PO DAILY, TAB.EC 02/15/21 Atorvastatin Calcium (LIPITOR) 40 Mg Tablet, 40 MG PO DAILY, TAB 12/08/18 Lorazepam (Lorazepam) 0.5 Mg Tablet, 0.5 MG PO BID PRN for SLEEP, TAB 12/08/18 Acarbose (Acarbose) 25 Mg Tablet, 25 MG PO BID, TAB 12/16/16 Levothyroxine Sodium (Synthroid 50 Mcg Tab) 50 Mcg Tablet, 50 MCG PO DAILY, TAB 12/16/16 Dutasteride (Dutasteride) 0.5 Mg Capsule, 0.5 MG PO DAILY, CAP 12/16/16 Past Medical History Past Medical History: Arthritis, CAD, Diabetes-Type II, GERD, Heart Disease, Hypertension, IBS, Other Additional Past Medical Hx: QUADRUPLE BYPASS; HX OF SKIN CA; TINNITIS; HERNIA Surgical History: Other Surgical History Other: QUADRUPLE BYPASS; CARDIAC STENT Family History: CAD, DM, HTN Social History: Negative, Lives with family RN Note Reviewed/Agreed w/PFSH: Yes Review of System Dictation CONSTITUTIONAL: NEGATIVE EXCEPT FOR HPI HEAD/FACE: NEGATIVE EXCEPT FOR HPI EENT: NEGATIVE EXCEPT FOR HPI RESPIRATORY: NEGATIVE EXCEPT FOR HPI GASTROINTESTINAL/ABDOMINAL: NEGATIVE EXCEPT FOR HPI GENITOURINARY: NEGATIVE EXCEPT FOR HPI URINARY URGENCY FREQUENCY WITH DISTENTION MUSCULOSKELETAL: NEGATIVE EXCEPT FOR HPI INTEGUMENTARY: NEGATIVE EXCEPT FOR HPI NEUROLOGICAL/PSYCH: NEGATIVE EXCEPT FOR HPI HEMATOLOGIC/LYMPHATIC: NEGATIVE EXCEPT FOR HPI ALL SYSTEMS NEGATIVE, EXCEPT NOTED ABOVE. 13 POINT REVIEW OF SYSTEMS ASSESSED AND ALL NEGATIVE EXCEPT FOR ABOVE. Initial Vital Sign VS Vital Signs Date Time Temp Pulse Resp B/P (MAP) Pulse Ox O2 Delivery O2 Flow Rate FiO2 06/12/24 15:41 98.4 79 16 157/106 99 Room Air 0 06/12/24 15:41 21 Physical Exam Dictation VITAL SIGNS REVIEWED GENERAL APPEARANCE: ALERT, ORIENTED X 3, MODERATE ACUTE DISTRESS, WELL DEVELOPED, NOURISHED. HEAD AND FACE: NON-TRAUMATIC. EYES: PERRL, PINK CONJUNCTIVAS, EYELID NO TRAUMA, ANTERIOR CHAMBER WITH ARCUS SENILIS. EARS: PINNAS INTACT AND NO SIGNS OF TRAUMA OR ERYTHEMA EAR CANALS CLEAR AND NO DISCHARGE TM NO ERYTHEMA NOSE: NO DISCHARGE, NO BLEEDING. OROPHARYNX: MOUTH NORMAL, TONGUE PINK, PHARYNX CLEAR,NO ERYTHEMA, TONSILS NO EXUDATES, NO ABSCESSES NOTED, MUCOUS MEMBRANE MOIST NECK: SUPPLE, NON-TENDER, NO THYROMEGALY, NO MASSES, NO JVD, NO BRUITS BREAST:DEFERRED CHEST:NO TENDERNESS, NO CREPITUS, NO PARADOXICAL MOVEMENT, NO RETRACTIONS LUNGS:CLEAR, WELL-VENTILATED, SYMMETRIC, NO RALES, NO WHEEZING, NO RHONCHI, NO STRIDOR, GOOD BREATH SOUNDS BILATERALLY HEART: REGULAR RATE, REGULAR RHYTHM, NO MURMUR, NO GALLOPS VASCULAR: NO PERIPHERAL EDEMA, ABDOMEN: SOFT, POSITIVE BOWEL SOUNDS, NONDISTENDED, NO GUARDING, NONTENDER, NO REBOUND, NO MASSES NO HEPATOMEGALY, NO SPLENOMEGALY, NO BRIGGS'S SIGN, NO HERNIAS. RECTAL: DEFERRED GENITAL: DEFERRED BLADDER DISTENDED THREE FINGERS ABOVE SYMPHYSIS PUBIS NEUROLOGICAL: NORMAL SPEECH, MOTOR FUNCTION INTACT, SENSORY FUNCTION INTACT MUSCULOSKELETAL: NECK NONTENDER, FULL RANGE OF MOTION, BACK NONTENDER, FULL RANGE OF MOTION, EXTREMITIES: NONTENDER, FULL RANGE OF MOTION SKIN: COLOR PINK, DRY, NO TURGOR, NO RASH, NO LACERATIONS, NO ABRASIONS, NO CONTUSIONS. LYMPHATIC: DEFERRED Results (Laboratory/Radiology) Laboratory/Radiology Laboratory Tests Test 06/12/24 16:34 Urine Color COLORLESS (YELLOW) Urine Appearance CLEAR (CLEAR) Urine pH 6.5 (5.0-8.0) Urine Specific [place] 1.003 (1.001-1.031) Urine Protein NEGATIVE mg/dL (NEGATIVE) Urine Glucose (UA) NEGATIVE mg/dL (NEGATIVE) Urine Ketones NEGATIVE mg/dL (NEGATIVE) Urine Occult Blood NEGATIVE (NEGATIVE) Urine Nitrate NEGATIVE (NEGATIVE) Urine Bilirubin NEGATIVE mg/dL (NEGATIVE) Urine Urobilinogen 0.2 mg/dL (0.2-1.0) Urine Leukocyte Esterase NEGATIVE William/uL Labs Reviewed?: Yes ED Course ED Course Orders Procedure Category Date Status Time Nurse Driven Godinez JOHN 06/12/24 In Process Removal Pro 15:44 Urinalysis Profile LAB 06/12/24 Complete Catherized 15:44 Vital Signs Date Time Temp Pulse Resp B/P (MAP) Pulse Ox O2 Delivery O2 Flow Rate FiO2 06/12/24 15:41 98.4 79 16 157/106 99 Room Air* 0 21 06/12/24 15:41 98.4 79 16 157/106 99 Room Air 0 SEVENTEEN 30 PATIENT REFUSED GODINEZ CATHETER AND WAS ABLE TO VOID APPROXIMATE 350 CC CLEAR LAUREN URINE SPONTANEOUSLY. WE WILL BE DISCHARGED HOME WITH ARIELLE TOLD TO SEE SOON PART Medical Decision Making MDM MEDICAL DISCHARGE MAKING BASED ON GODINEZ CATHETER FOR URINARY RETENTION PATIENT REFUSED AND ABLE TO VOID APPROXIMATE 350 CC CLEAR LAUREN URINE. DISCHARGED HOME WITH MIKO AND FLOJAMES TOLD TO FOLLOW UP WITH HIS UROLOGIST DX & DISP Disposition: Discharge Departure Impression: Primary Impression: BPH (benign prostatic hyperplasia) Condition: Stable Scripts Tamsulosin HCl (Flomax) 0.4 Mg Cap.er.24h 0.4 MG PO DAILY for 20 Days, #20 CAPSULE.DR Prov: ABIOLA WALLACE RANCH COOK 06/12/24 Levofloxacin (Levofloxacin) 500 Mg Tablet 1 TAB PO DAILY for 10 Days, #10 TAB 0 Refills Prov: ABIOLA WALLACE RANCH COOK 06/12/24 Additional Instructions: FOLLOW-UP WITH PRIMARY CARE PROVIDER IN 1 TO 2 DAYS. TAKE MEDICATIONS DIRECTED HERE IN THE EMERGENCY ROOM. OKAY TO CONTINUE HOME MEDICATIONS UNLESS OTHERWISE DISCUSSED DURING YOUR VISIT IN THE EMERGENCY ROOM TODAY. RETURN TO YOUR NEAREST EMERGENCY ROOM IF SYMPTOMS WORSEN OR IF THERE IS NO IMPROVEMENT. CALL 911 IF YOU NEED IMMEDIATE ASSISTANCE. TAKE TYLENOL OR MOTRIN [id number] NEEDED AND IF NO CONTRAINDICATIONS ARE PRESENT. INCREASE ORAL HYDRATION. A WOUND CULTURE OR URINE CULTURE WAS ORDERED HERE IN THE EMERGENCY ROOM DEPARTMENT PLEASE FOLLOW-UP WITH PRIMARY CARE PROVIDER AND ADVISE THEM TO GET REPEAT PORTS FROM OUR FACILITY. IF YOU HAD ANY ОЛЬГА WRAP/SPLINTS THAT WERE APPLIED HERE, PLEASE DO NOT REMOVE THEM UNTIL YOU SEE YOUR PRIMARY CARE OR SPECIALTY. TAKE FLOMAX DAILY DIRECTED., TAKE LEVAQUIN DIRECTED UNTIL GONE. , FOLLOW UP WITH YOUR UROLOGIST IN THE NEXT 1-2 DAYS Referrals: LUCY HAMMOND DO (PCP) REJI BROWN MD Time of Disposition: 17:31 I have reviewed the case, and I agree with, Diagnosis and Plan ABIOLA WALLACE NP Jun 12, 2024 15:49
--- NOTE | 2024-06-12 16:52 | NUR ---
PATIENT VOID/REFUSED GODINEZ PATIENT REFUSING GODNIEZ; PATIENT WAS ABLE TO VOID 500CC PER URINAL; POST BLADDER SCAN SHOWS 0-10 CC IN BLADDER. VERIFIED WITH PRIMARY NURSE AND ABIOLA BELTRE MADE AWARE.
--- NOTE | 2024-06-12 16:54 | NUR ---
REFER TO REFUSAL TO SUBMIT TO [place]. FORM
[2024-06-12 16:55] LABS: APPEARANCE,URINE CLEAR (CLEAR); BILIRUBIN,URINE NEGATIVE (NEGATIVE); COLOR,URINE COLORLESS (YELLOW); GLUCOSE, URINE (UA) NEGATIVE (NEGATIVE); KETONES,URINE NEGATIVE (NEGATIVE); LEUKOCYTE ESTERASE ,URINE NEGATIVE Leu/uL (NEGATIVE); NITRATE,URINE NEGATIVE (NEGATIVE); OCCULT BLOOD,URINE NEGATIVE (NEGATIVE); PH,URINE 6.5 (5.0-8.0); PROTEIN,URINE NEGATIVE (NEGATIVE); UROBILINOGEN,URINE 0.2 mg/dL (0.2-1.0)
[2024-06-12 17:06] LABS: ADD UA MICROSCOPIC NO
[2024-06-12] MEDS ORDERED: TAMS-1 PO (17:32)
[2024-06-12 17:59] VITALS: BP 128/60; PULSE 71; RESP 20; TEMP 97.8; O2SAT 96
== END 2024-06-12 18:04 | disposition home or self-care (01) ==
LOC: EDH 15:39
DX: N40.1 Benign prostatic hyperplasia with lower urinary tract symptoms (principal); I25.10 Atherosclerotic heart disease of native coronary artery without angina pectoris; E11.9 Type 2 diabetes mellitus without complications; I10 Essential (primary) hypertension; K21.9 Gastro-esophageal reflux disease without esophagitis; M19.90 Unspecified osteoarthritis, unspecified site; Z79.82 Long term (current) use of aspirin; Z79.84 Long term (current) use of oral hypoglycemic drugs; Z79.890 Hormone replacement therapy; Z79.899 Other long term (current) drug therapy; Z85.828 Personal history of other malignant neoplasm of skin; Z88.0 Allergy status to penicillin; Z88.5 Allergy status to narcotic agent; Z95.5 Presence of coronary angioplasty implant and graft
CPT/HCPCS: 81003; 99284

== ENCOUNTER → 2024-12-14 | Outpatient (CLI) | payer OTHER, MEDICAID ==
[~2024-12-14] MED LIST changes: -PIND10TA2 PO; +PIND10TA8 PO; +TAMS-55 PO
[2024-12-14 09:14] LABS: IMMATURE GRANULOCYTE ABSOLUTE 0.01 K/uL (0-1); NUCLEATED RED BLOOD CELLS 0.0 % (0.0-0.19); PLATELET COUNT (AUTO) 210 K/uL (130-400); RED BLOOD CELL COUNT(AUTO) 4.87 MIL/uL (4.50-6.20); RED CELL DISTRIBUTION WIDTH 13.6 % (11.0-15.5); WHITE BLOOD COUNT (AUTO) 5.3 K/uL (4.8-10.8)
[2024-12-14 09:30] LABS: ASPARTATE AMINOTRANSFERASE 19.0 U/L (10-37); CREATININE 0.8 mg/dL (0.5-1.3); GLOMERULAR FILTR. RATE CALC 92.0 mL/min (>90); GLUCOSE,RANDOM 115.0 mg/dL (70-105); SODIUM SERUM 138.0 mmol/L (136-145); TOTAL PROTEIN, SERUM 7.4 g/dL (6.0-8.3); UREA NITROGEN, BLOOD 3.0 mg/dL (7-18)
== END | disposition home or self-care (01) ==
LOC: LAB 08:47
PROVIDERS: ATTEND Internal Medicine Gastroenterology
DX: R10.30 Lower abdominal pain, unspecified (principal)
CPT/HCPCS: 36415; 80053; 85025

== ENCOUNTER → 2024-12-17 | Outpatient (CLI) | payer OTHER, MEDICAID ==
[~2024-12-17] MED LIST changes: +IOHEXOL 350 MG/ML 100ML INFUS..BTL IV ONE
--- NOTE | 2024-12-18 10:04 | HMCIMG ---
EXAM: CT Abdomen and Pelvis with IV contrast CLINICAL HISTORY: Lower abdominal pain. TECHNIQUE: Axial computed tomography images of the abdomen and pelvis with oral , without and with intravenous contrast. CONTRAST: Oral and intravenous. COMPARISON: None. FINDINGS: LUNG BASES: The lung bases are clear except for minimal bibasilar streaky atelectasis. No pleural effusions are seen. Median sternotomy wires are seen. There are extensive coronary artery atherosclerotic calcifications. LIVER: Unremarkable. GALLBLADDER AND BILE DUCTS: There are gallstones and sludge noted in the gallbladder. PANCREAS: Unremarkable. SPLEEN: Unremarkable. ADRENAL GLANDS: Unremarkable. KIDNEYS, URETERS, AND BLADDER: The kidneys are unremarkable. There is no hydronephrosis or hydroureter. No urinary calculi are seen. On the delayed images there is opacification of the renal collecting system and urinary bladder. Thick-walled urinary bladder which may be due to underdistention or cystitis. STOMACH AND BOWEL: Unremarkable appearance of the stomach and bowel. No evidence of bowel obstruction. No evidence suggesting enteritis or colitis. There are multiple distal colonic diverticuli without acute diverticulitis. APPENDIX: Normal appendix. PERITONEUM: No free fluid, loculated fluid collection or free air. LYMPH NODES: No lymphadenopathy is evident. REPRODUCTIVE: Unremarkable. VASCULATURE: There is a 4.2 cm infrarenal abdominal aortic aneurysm with a patent aortobiiliac endograft in place. The aorta and its branches demonstrate extensive atheromatous calcifications. 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 There is ectasia of the left common iliac artery. There is ectasia of the left proximal internal iliac artery measuring 1.4 cm. The bilateral external iliac, common femoral, femoral and deep femoral arteries are patent to the extent visualized. BONES: No aggressive appearing osseous lesion. No acute osseous pathology evident. Degenerative changes of the spine are seen in the form of marked disc degeneration at L3/4 through L5/S1. There is minimal degenerative retrolisthesis of L3 over L4. SOFT TISSUE: Post-operative changes are noted in the lower mid ventral abdominal wall. There is a small fat containing left inguinal hernia. IMPRESSION: No bowel obstruction or inflammation. Colonic diverticula without evidence of diverticulitis. Normal appendix. Normal kidneys. No hydronephrosis. Gallstones and sludge in the gallbladder. Thick-walled urinary bladder which may be due to underdistention or cystitis. 4.2 cm infrarenal abdominal aortic aneurysm with a patent aortobiiliac endograft in place. 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 /[place]
== END | disposition home or self-care (01) ==
LOC: RAH 09:02
PROVIDERS: ATTEND Internal Medicine Gastroenterology
DX: K57.30 Diverticulosis of large intestine without perforation or abscess without bleeding (principal); K80.20 Calculus of gallbladder without cholecystitis without obstruction; K40.90 Unilateral inguinal hernia, without obstruction or gangrene, not specified as recurrent; N32.89 Other specified disorders of bladder; K82.8 Other specified diseases of gallbladder; R10.30 Lower abdominal pain, unspecified; I25.10 Atherosclerotic heart disease of native coronary artery without angina pectoris; I71.43 Infrarenal abdominal aortic aneurysm, without rupture; I70.0 Atherosclerosis of aorta; M47.817 Spondylosis without myelopathy or radiculopathy, lumbosacral region; I77.89 Other specified disorders of arteries and arterioles; Z98.890 Other specified postprocedural states
CPT/HCPCS: 74178; Q9967

== ENCOUNTER 2025-01-21 05:46 | Observation (INO) | payer OTHER, MEDICAID ==
[~2025-01-21] VITALS: Ht 172.7 cm; Wt 93.4 kg
[~2025-01-21 05:46] MED LIST changes: -IOHEXOL 350 MG/ML 100ML INFUS..BTL IV ONE
[2025-01-21 06:16] LABS: IMMATURE GRANULOCYTE ABSOLUTE 0.02 K/uL (0-1); NUCLEATED RED BLOOD CELLS 0.0 % (0.0-0.19); PLATELET COUNT (AUTO) 196 K/uL (130-400); RED BLOOD CELL COUNT(AUTO) 4.53 MIL/uL (4.50-6.20); RED CELL DISTRIBUTION WIDTH 13.9 % (11.0-15.5); WHITE BLOOD COUNT (AUTO) 5.0 K/uL (4.8-10.8)
--- NOTE | 2025-01-21 06:23 | ERN ---
ED Note History of Present Illness Stated Complaint: C/O HEARTBURN, SOB, CP Chief Complaint: Heartburn/GI Distress Time Seen by MD: 05:49 Dictation: Patient is a 75-year-old male with a past medical history of diabetes mellitus type 2, hypertension, pulmonary embolisms, CAD, CABG x4 who presents to the ER complaining of chest pain x2 weeks, reports the pain radiates to his back and neck. Patient mentioned that the pains occurs when he is sitting down, 2 days ago his similar pain in the he was told by PCP to take Tylenol. Today he reports that pain started early in the morning around like 5:00 a.m. Allergies: Coded Allergies: Penicillins (Unverified Allergy, Unknown, 12/15/16) codeine (Unverified Allergy, Unknown, 12/15/16) hydrochlorothiazide (Unverified Allergy, Unknown, 12/15/16) morphine (Unverified Allergy, Unknown, 12/15/16) propoxyphene (Unverified Allergy, Unknown, 12/15/16) Home Meds Active Scripts Tamsulosin HCl (Flomax) 0.4 Mg Cap.er.24h, 0.4 MG PO DAILY for 20 Days, #20 CAPSULE.DR Prov:ABIOLA WALLACE NP 06/12/24 Levofloxacin (Levofloxacin) 500 Mg Tablet, 1 TAB PO DAILY for 10 Days, #10 TAB 0 Refills Prov:ABIOLA WALLACE NP 06/12/24 Dicyclomine HCl (Bentyl) 20 Mg Tab, 1 TAB PO QID for irritable bowel symptoms for 30 Days, #120 TAB 0 Refills Prov:ABIOLA WALLACE NP 03/13/24 Hydroxyzine Pamoate (Hydroxyzine Pamoate) 100 Mg Capsule, 1 CAP PO HS for 30 Days, #30 CAP 0 Refills Prov:ABIOLA WALLACE NP 03/13/24 Cefpodoxime Proxetil (Cefpodoxime Proxetil) 200 Mg Tablet, 200 MG PO BID for 10 Days, #20 TAB Prov:RENE COSME DO 09/27/23 Levofloxacin (Levofloxacin) 500 Mg Tablet, 500 MG PO DAILY for 7 Days, #7 TAB Prov:ABIOLA WALLACE NP 09/07/23 Pindolol (Pindolol) 10 Mg Tablet, 5 MG PO DAILY for 30 Days, #30 TAB 0 Refills Prov:ANGELA GANDHI MD 08/04/23 Doxycycline Hyclate (Doxycycline Hyclate) 100 Mg Tablet.dr, 100 MG PO BID, #20 TAB Prov:JASON SCHNEIDER MD 07/05/23 Mupirocin (Mupirocin Ointment) 2 % Oint, 1 APPLIC TP BID for 10 Days, #30 G Prov:JUDAH WALSH 06/14/23 Clindamycin HCl (Clindamycin HCl) 300 Mg Capsule, 1 CAP PO TID for 10 Days, #30 CAP 0 Refills Prov:JUDAH WALSH 06/14/23 Meloxicam, Submicronized (Meloxicam) 10 Mg Capsule, 10 MG PO DAILY PRN for PAIN, #30 CAP Prov:JASON SCHNEIDER MD 06/05/23 Amlodipine Besylate (Norvasc 2.5MG Tab) 2.5 Mg Tablet, 2.5 MG PO DAILY, #30 TAB Prov:JASON SCHNEIDER MD 06/04/23 Famotidine (Pepcid) 20 Mg Tablet, 20 MG PO DAILY, #15 TAB 0 Refills Prov:ANGELA GANDHI MD 07/19/22 Nitroglycerin (Nitrostat) 0.4 Mg Tab.subl, 0.4 MG SL AD for 25 Days, #25 TAB.SL Prov:CHRISTELLE MCCALL Jr., MD 10/13/18 Reported Medications Meclizine HCl (Meclizine HCl) 12.5 Mg Tablet, 12.5 MG PO HS, TAB 08/02/22 Metformin HCl (Metformin HCl ER) 500 Mg [id number], 500 MG PO BID 08/02/22 Metoprolol Succinate (Metoprolol Succinate) 25 Mg Tab.er.24h, 25 MG PO BID, TAB 08/02/22 Doxazosin Mesylate (Doxazosin Mesylate) 8 Mg Tablet, 8 MG PO DAILY, TAB 08/02/22 Magnesium (Magnesium) 250 Mg Tablet, 250 MG PO HS, TAB 02/02/22 Ranolazine (RANEXA) 500 Mg Tab.er.12h, 500 MG PO BID, TAB 02/02/22 Aspirin (ASPIRIN 81 MG ECTAB) 81 Mg Ectab, 81 MG PO DAILY, TAB.EC 02/15/21 Atorvastatin Calcium (LIPITOR) 40 Mg Tablet, 40 MG PO DAILY, TAB 12/08/18 Lorazepam (Lorazepam) 0.5 Mg Tablet, 0.5 MG PO BID PRN for SLEEP, TAB 12/08/18 Acarbose (Acarbose) 25 Mg Tablet, 25 MG PO BID, TAB 12/16/16 Levothyroxine Sodium (Synthroid 50 Mcg Tab) 50 Mcg Tablet, 50 MCG PO DAILY, TAB 12/16/16 Dutasteride (Dutasteride) 0.5 Mg Capsule, 0.5 MG PO DAILY, CAP 12/16/16 Past Medical History Past Medical History: Diabetes-Type II, High Cholesterol, Heart Disease, Hypertension, Other Additional Past Medical Hx: PROSTATE PROBLEM; QUADRUPLE BYPASS Surgical History: Other Surgical History Other: CARDIAC STENTS Family History: CAD, DM, HTN Social History: Negative, Lives with family Review of System Dictation NEGATIVE EXCEPT PER HPI Constitutional: Negative for fever,chills, and weight loss Eyes: Negative for injury, pain,redness, and discharge ENT: Negative for injury,pain or swelling Cardiovascular: Chest pain Respiratory: Negative for shortness of breath, cough, and wheezing, Abdomen/GI: Negative for abdominal pain, nausea, vomiting, diarrhea, and constipation Back: Negative for injury and pain : Negative for injury, bleeding and discharge MS/Extremity: Negative for injury and deformity Skin: Negative for rash, and discoloration Neuro: Negative for headache, weakness, numbness, tingling, and seizure Psych: Negative for suicide ideation, homicidal ideation, and hallucinations Initial Vital Sign VS Vital Signs Date Time Temp Pulse Resp B/P (MAP) Pulse Ox O2 Delivery O2 Flow Rate FiO2 01/21/25 05:48 97.0 77 20 125/84 97 Room Air 01/21/25 06:12 0 21 Physical Exam Dictation General: awake, alert, NAD Head/Face: Normocephalic, atraumatic Eyes: PERRL, EOMI, vision at baseline ENT: oral cavity clear, TMs clear, no signs of infection Neck: Trachea midline, supple, no nuchal rigidity Cardiovascular: RRR, normal S1/S2, No MRGs, no JVD Respiratory: CTAB, no respiratory distress, No rales or wheezes Abdomen: Soft , no tender Skin: Warm, dry, normal turgor, no rash MS/Extremity: Pulses equal, no cyanosis, neurovascular intact, FROM Neuro: COAx4, GCS 15, strength 5/5, CN 2-12 intact, normal cerebellar exam, normal gait, Psych: Normal behavior, mood, and affect normal Results (Laboratory/Radiology) Laboratory/Radiology Laboratory Tests Test 01/21/25 06:06 White Blood Count 5.0 K/uL (4.8-10.8) Red Blood Count 4.53 MIL/uL (4.50-6.20) Hemoglobin 14.4 g/dL (14.0-18.0) Hematocrit 40.5 % (42-54) L Mean Corpuscular Volume 89.4 fL (79-99) Mean Corpuscular Hemoglobin 31.8 pg (27.0-33.0) Mean Corpuscular Hemoglobin Concent 35.6 g/dL (32.0-36.0) Red Cell Distribution Width 13.9 % (11.0-15.5) Platelet Count 196 K/uL (130-400) Mean Platelet Volume 10.3 fL (7.5-10.5) Immature Granulocyte % (Auto) 0.4 % (0-1) Neutrophils (%) (Auto) 35.5 % (40.0-77.0) L Lymphocytes (%) (Auto) 51.8 % (21.0-51.0) H Monocytes (%) (Auto) 10.3 % (3.0-13.0) Eosinophils (%) (Auto) 1.6 % (0.0-8.0) Basophils (%) (Auto) 0.4 % (0.0-5.0) Neutrophils # (Auto) 1.8 K/uL (1.8-7.7) Lymphocytes # (Auto) 2.6 K/uL (1.0-4.8) Monocytes # (Auto) 0.5 K/uL (0.1-1.0) Eosinophils # (Auto) 0.08 K/uL (0.00-0.70) Basophils # (Auto) 0.02 K/uL (0.00-0.20) Absolute Immature Granulocyte (auto 0.02 K/uL (0-1) Nucleated Red Blood Cells 0.0 % (0.0-0.19) D-Dimer Quantitative (PE/DVT) 4283 ng/mL (0-500) *H Sodium Level 132 mmol/L (136-145) L Potassium Level 5.7 mmol/L (3.5-5.1) H Chloride Level 97 mmol/L (101-111) L Carbon Dioxide Level 32 mmol/L (21-32) Blood Urea Nitrogen 6 mg/dL (7-18) L Creatinine 0.8 mg/dL (0.5-1.3) Glomerular Filtration Rate Calc 91 mL/min (>90) Random Glucose 101 mg/dL (70-105) Total Calcium 9.1 mg/dL (8.5-10.1) Troponin I High Sensitivity 12 ng/L (4-75) Labs Reviewed?: Yes ED Course ED Course Orders Procedure Category Date Status Time Cbc With Differential LAB 01/21/25 Complete 06:03 D-Dimer LAB 01/21/25 Complete 06:03 Chest 1vw RAD 01/21/25 Resulted 06:03 12 Lead Ekg Tracing- EKG 01/21/25 Complete Technical 06:03 Aspirin 81mg Chew Tab PHA 01/21/25 Complete (Aspirin 81mg Chew 06:30 Nitroglycerin 0.4mg PHA 01/21/25 In Process Sl Tab (Nitrostat) 06:30 Troponin I High LAB 01/21/25 Complete Sensitivity 06:03 Basic Metabolic Panel LAB 01/21/25 Complete 06:03 Aspirin 81mg Chew Tab PHA 01/21/25 Complete (Aspirin 81mg Chew 06:24 Ct Chest Pe Protocol CT 01/21/25 Taken Wwo Cont 08:14 Current Medications Medications (Trade) Dose Ordered Sig/Martin Route PRN Reason Start Time Stop Time Status Last Admin Dose Admin Aspirin (Aspirin 81mg Chew Tab) 81 mg ONCE ONCE PO 01/21/25 06:30 01/21/25 06:31 DC 01/21/25 06:24 Aspirin (Aspirin 81mg Chew Tab) 81 mg STK-MED ONCE .ROUTE 01/21/25 06:24 01/21/25 06:42 DC Nitroglycerin (Nitrostat) 0.4 mg Q5M PRN SL CHEST PAIN 01/21/25 06:30 Vital Signs Date Time Temp Pulse Resp B/P (MAP) Pulse Ox O2 Delivery O2 Flow Rate FiO2 01/21/25 07:30 68 18 128/68 97 Room Air* 0 21 01/21/25 06:12 98.1 60 16 124/72 99 Room Air* 0 21 01/21/25 05:48 97.0 77 20 125/84 97 Room Air Medical Decision Making MDM 75-year-old male with multiple comorbidities including PE, CAD, CABG x4 who presented to the ER complaining of intermittent chest pain to be 2 weeks. Differential diagnosis including: No STEMI, angina, PE, GERD. Chest pain workup ordered Patient handed off at shift change MDM: Differential diagnosis: Rationale: Tests considered and ordered secondary to shared decision making include: labs, ECG and radiology Previous outside records reviewed: Old ER visits. Risk of complication and/or morbidity or mortality of patient management: None Medications-Per medication reconciliation Need for hospitalization: Patient does meet criteria for hospitalization. Need for emergency major/minor surgery: No There are no social concerns with this patient. Prescription drug management Prescriptions will include symptomatic care Patient's prior external medical records from other ER visits were reviewed by me as indicated. Prior testing and results from previous visits were reviewed. Prior tests were taken into account with medical decision making and resource utilization, independent historian/historians were used to obtain complete medical history. I independently interpreted the test that were performed, results were reviewed by me and considered findings on radiology if ordered. Medical management and examination interpretation discussions were had by me with other qualified healthcare professionals as indicated for the patient's care. 75-year-old male with angina, high heart score of six admitting for further care and evaluation DX & DISP Disposition: Inpatient Departure Impression: Primary Impression: Unstable angina Additional Impression: Elevated d-dimer Condition: Stable Referrals: BEN LAUREANO MD (PCP) OFELIA CLARKE MD Jan 21, 2025 06:22 AMMY CARDONA MD Jan 21, 2025 09:22
[2025-01-21] MEDS: ASPIRIN 81MG CHEW TAB PO ONE (06:24)
[2025-01-21 06:25] LABS: CREATININE 0.8 mg/dL (0.5-1.3); GLOMERULAR FILTR. RATE CALC 91.0 mL/min (>90); GLUCOSE,RANDOM 101.0 mg/dL (70-105); SODIUM SERUM 132.0 mmol/L (136-145); UREA NITROGEN, BLOOD 6.0 mg/dL (7-18)
[2025-01-21] MEDS ORDERED: NITROGLYCERIN 0.4 MG SL TAB SL PRN (06:30)
[2025-01-21] MEDS: ASPIRIN 81MG CHEW TAB ONE (07:09)
--- NOTE | 2025-01-21 07:10 | NUR ---
CARE TRANSFERRED TO TANESHA CABELLO
--- NOTE | 2025-01-21 07:52 | HMCIMG ---
EXAM: CR Chest, 1 View. CLINICAL HISTORY: chest pain COMPARISON: 04/28/24 8:30 EST CR - CHEST 1VW FINDINGS: LUNGS: There is no mass, infiltrate, or acute pulmonary abnormality. PLEURAL SPACES: No evidence of pleural effusion or pneumothorax. MEDIASTINUM: Cardiac size and mediastinal contours within normal limits. BONES: No acute osseous abnormality. IMPRESSION: No acute cardiopulmonary pathology is evident. /[place]
--- NOTE | 2025-01-21 08:00 | EKG ---
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
[2025-01-21] MEDS ORDERED: IOHEXOL-350 75 ML VIAL IV ONE (08:38)
--- NOTE | 2025-01-21 09:38 | HP ---
[facility]ORY [facility] PHYS[facility] Date of Service: Jan 21, 2025 Time of Service: 09:38 HISTORY OF PRESENT ILLNESS: This is a 75-year-old male with past medical history of coronary artery disease status post CABG x4, diabetes mellitus type 2, hypertension, history of PE, history of subdural hematoma in 2023 who presented to the hospital secondary to chest pain. Patient states he has been having intermittent episodes of chest pain which is located in the midsternal area for the past one week. The pain would radiate towards his back and neck. He denied any pain in the arms, paresthesias, nausea, vomiting. His pain was improved after coming to the hospital. He denied any nausea, vomiting. He has chronic history of constipation and takes Linzess at home. He also has history of BPH and currently has a Palomares catheter placed. His urologist in [place] was planning to do a possible procedure in the upcoming days. He denied any falls, syncopal episode. Denies any shortness of breath. He complains of occasional cough with sputum production. Denied any fever, chills. His last bowel movement was yesterday and he denied any melena, hematochezia, hematemesis. He takes Ranexa at home for his coronary artery disease. Labs were notable for white count of 5.0, hemoglobin was 14.4, platelet count is 196 K, sodium was 132, potassium was 4.4, creatinine was 0.8, , D-dimer was 4283 His troponin was negative x1 . . Patient underwent a CT chest with PE protocol which was negative for PE. There was cholelithiasis present. REVIEW OF SYSTEMS CONSTITUTIONAL: Denies fevers, chills, or night sweats. No unintentional weight loss reported. NEUROLOGICAL: Denies headache, amaurosis fugax, motor weakness, sensory deficit, vertigo/spinning sensation, gait abnormalities, or tremors. ENT: No hearing loss, otalgia, otorrhea, rhinitis, rhinorrhea, hoarseness, or sore throat. CARDIOVASCULAR: For chest pain, cough. Denied any shortness of breath, orthopnea, PND. PULMONARY: Denies any shortness of breath, cough, phlegm/sputum, hemoptysis, pleuritic chest pain. GASTROINTESTINAL: Denies any type of dysphagia to either liquids or solids. Denies nausea, vomiting, pyrosis, early satiety, abdominal pain, diarrhea, or changes in stool consistency or caliber. Denies coffee-ground emesis, hematemesis, hematochezia, or melanotic stools. Positive for Constipation GENITOURINARY: Denies frequency, urgency, nocturia, hematuria or incontinence (Storage/Irritative symptoms.) Low urinary stream, straining to void, urinary intermittency or hesitancy, splitting of the voiding stream, terminal dribbling. ENDOCRINOLOGIC: Denies polyuria, polydipsia, polyphagia or heat/cold intolerances. HEMATOLOGIC: Denies thrombophilia/previous clots, or coagulopathy/bleeding disorders. ONCOLOGIC: Denies personal history of malignancy. DERMATOLOGIC: Denies rashes or pruritus. PSYCHIATRIC: Denies any suicidal or homicidal ideation. Denies hallucinations. PAST MEDICAL HISTORY: Coronary artery disease, diabetes mellitus type 2, hypertension, hyperlipidemia, history of PE, history of subdural hematoma, history of BPH, history of carotid artery stenosis PAST SURGICAL HISTORY: History of CABG, history of subdural hematoma evacuation history of heart catheterization PAST SOCIAL HISTORY: Denied any smoking, alcohol, drug use FAMILY HISTORY: Denied any pertinent family history Coded Allergies: Penicillins (Unverified Allergy, Unknown, 12/15/16) codeine (Unverified Allergy, Unknown, 12/15/16) hydrochlorothiazide (Unverified Allergy, Unknown, 12/15/16) morphine (Unverified Allergy, Unknown, 12/15/16) propoxyphene (Unverified Allergy, Unknown, 12/15/16) PHYSICAL EXAM GENERAL APPEARANCE: The patient is awake, alert, and oriented, in no acute cardiopulmonary distress. NEUROLOGICAL: Cranial nerves II-XII grossly intact. Motor is 5/5 in bilateral upper and lower extremities proximal to distal. No sensory deficits. HEENT: Face is symmetric. Pupils are equal and reactive. Extraocular movements are intact. NECK: Supple. No JVD. No thyromegaly. No submental, submandibular, pre- /postauricular, occipital or supraclavicular lymphadenopathy. CHEST: Normal chest expansion. No Telemetry. LUNGS: Absence of any rales, rhonchi or any wheezing. CARDIOVASCULAR: Regular. S1 and S2 normal. No appreciable rubs, murmurs or gallops. ABDOMEN: Soft, nontender, and nondistended. There is no rebound, voluntary guarding, or rigidity. : Deferred. No Palomares. EXTREMITIES: Non-edematous and not cyanotic. No clubbing. Good capillary refill. SKIN: No skin breakdown. Vital Sign (Last 24 Hours) 01/21/25 01/21/25 06:12 07:30 Temp 98.1 Pulse 68 Resp 18 B/P (MAP) 128/68 Pulse Ox 97 O2 Delivery Room Air* O2 Flow Rate 0 FiO2 21 LABS: Laboratory: Test 01/21/25 06:06 Range/Units White Blood Count 5.0 4.8-10.8 K/uL Red Blood Count 4.53 4.50-6.20 MIL/uL Hemoglobin 14.4 14.0-18.0 g/dL Hematocrit 40.5 L 42-54 % Mean Corpuscular Volume 89.4 79-99 fL Mean Corpuscular Hemoglobin 31.8 27.0-33.0 pg Mean Corpuscular Hemoglobin Concent 35.6 32.0-36.0 g/dL Red Cell Distribution Width 13.9 11.0-15.5 % Platelet Count 196 130-400 K/uL Mean Platelet Volume 10.3 7.5-10.5 fL Immature Granulocyte % (Auto) 0.4 0-1 % Neutrophils (%) (Auto) 35.5 L 40.0-77.0 % Lymphocytes (%) (Auto) 51.8 H 21.0-51.0 % Monocytes (%) (Auto) 10.3 3.0-13.0 % Eosinophils (%) (Auto) 1.6 0.0-8.0 % Basophils (%) (Auto) 0.4 0.0-5.0 % Neutrophils # (Auto) 1.8 1.8-7.7 K/uL Lymphocytes # (Auto) 2.6 1.0-4.8 K/uL Monocytes # (Auto) 0.5 0.1-1.0 K/uL Eosinophils # (Auto) 0.08 0.00-0.70 K/uL Basophils # (Auto) 0.02 0.00-0.20 K/uL Absolute Immature Granulocyte (auto 0.02 0-1 K/uL Nucleated Red Blood Cells 0.0 0.0-0.19 % D-Dimer Quantitative (PE/DVT) 4283 *H 0-500 ng/mL Sodium Level 132 L 136-145 mmol/L Potassium Level 5.7 H 3.5-5.1 mmol/L Chloride Level 97 L 101-111 mmol/L Carbon Dioxide Level 32 21-32 mmol/L Blood Urea Nitrogen 6 L 7-18 mg/dL Creatinine 0.8 0.5-1.3 mg/dL Glomerular Filtration Rate Calc 91 >90 mL/min Random Glucose 101 70-105 mg/dL Total Calcium 9.1 8.5-10.1 mg/dL Troponin I High Sensitivity 12 4-75 ng/L Current Medications Medications (Trade) Dose Ordered Sig/Martin Route PRN Reason Start Time Stop Time Status Last Admin Dose Admin Nitroglycerin (Nitrostat) 0.4 mg Q5M PRN SL CHEST PAIN 01/21/25 06:30 DIAGNOSTICS / RADIOLOGY: [ ] ASSESSMENT: Chest pain ACS rule out POA differential unstable angina versus muscular s keletal pain Elevated D-dimer with negative PE Hyperkalemia improved Constipation Hypertension Diabetes mellitus type 2 History of PE History of subdural hematoma status post evacuation in [facility] in 2023 History of BPH Urinary retention status post Palomares catheter placement PLAN: - admit patient to [facility] -in reference to chest pain. We will trend troponins q.6 hours to rule out ACS. Obtain echocardiogram. Secondary to patient's cardiac risk factors we will request consultation with Cardiology. Obtain patient's home medications which will be reconciled once available -obtain a venous Doppler. Secondary to patient's history of subdural hematoma we will also obtain a CT head -check TSH, A1c, procalcitonin -further orders per hospitalization course Advanced Care Planning Which of the following were discussed: Hospice care: Yes __ No x__ Therapeutic options: Yes __ No __ Advance directives: Yes __ No __ Other discussions: Discussed with who?: patient (Patient, family or surrogates) Voluntary nature of this service was explained to the patient? Yes _x_ No __ Amount of time spent: 25 minutes FABIAN Garcia MD, MD Jan 21, 2025 09:38
[2025-01-21 10:05] LABS: CREATININE 0.8 mg/dL (0.5-1.3); GLOMERULAR FILTR. RATE CALC 91.0 mL/min (>90); GLUCOSE,RANDOM 101.0 mg/dL (70-105); SODIUM SERUM 132.0 mmol/L (136-145); UREA NITROGEN, BLOOD 6.0 mg/dL (7-18)
--- NOTE | 2025-01-21 10:25 | HMCIMG ---
CT CHEST PE PROTOCOL WWO CONT REASON: r/o PE TECHNIQUE: Thin axial images through the chest were obtained during bolus intravenous administration of 75 ml of Omnipaque 350. Sagittal and coronal reconstruction images were performed. FINDINGS: The main pulmonary arteries and their first and second order branches have normal caliber and enhancement throughout. No intraluminal filling defect is identified. Thoracic aorta is unremarkable. Heart size is within normal limits. Patient is status post median sternotomy. There is coronary calcification suggesting of coronary artery disease. There is suggestion of patient has had prior cardiac revascularization procedure. No pleural or pericardial effusion is identified. Lungs are clear. No pneumothorax is noted. There is no mediastinal or axillary lymphadenopathy. There is osteoarthritic changes and degenerative changes with calcified plaque involving the thoracic and lumbar spine. Limited evaluation of the upper abdomen demonstrate cholelithiasis. The visualized portions of the liver and spleen appears to be normal. IMPRESSION: No evidence of pulmonary embolism or aortic dissection. Cholelithiasis Status post median sternotomy with coronary calcification suggesting of possible cardiac revascularization procedure. CT was performed with one or more following dose reduction techniques: automated exposure control, adjustment of the mA and kv according to patient's size, or use of a iterative reconstruction technique.
[2025-01-21] MEDS ORDERED: LINA290C PO (11:09)
[2025-01-21] MEDS ORDERED: OMEP20CA12 PO (11:09)
[2025-01-21] MEDS ORDERED: LEVE-21 PO (11:09)
--- NOTE | 2025-01-21 11:51 | HMCIMG ---
Exam: NONCONTRAST CT BRAIN REASON: history of subdural hematoma . COMPARISON: Prior study from 04/12/2024 is available. TECHNIQUE: Images are obtained from vertex to the skull base. The exam was performed without IV contrast. FINDINGS: There is normal appearing brain parenchyma. There are no focal mass lesions. There is is no evidence of intracranial hemorrhage or acute stroke. Ventricles and sulci appear normal. Posterior fossa and brainstem structures are unremarkable. Paranasal sinuses and remaining extracranial soft tissues appear normal as well.There is global atrophy consistent with patient's chronological age. IMPRESSION: 1. No acute intracranial process CT was performed with one or more following dose reduction techniques: automated exposure control, adjustment of the mA and kv according to patient's size, or use of a iterative reconstruction technique.
--- NOTE | 2025-01-21 12:02 | HMCIMG ---
US VENOUS DOPPLER BILATERAL REASON: assess for DVT COMPARISON: None Technique: Bilateral venous doppler ultrasound was performed with spectral analysis and color flow imaging technique. FINDINGS: There is a normal appearance of the common femoral, deep femoral, the profunda femoris and popliteal veins. Proximal calf veins appear normal as well. There is normal response to compression and augmentation. There is no evidence of deep venous thrombosis. IMPRESSION: Normal bilateral lower extremity venous Doppler ultrasound.
[2025-01-21 12:30] VITALS: BP_SYST 105; BP_SYST 119; BP_DIAS 67; BP_DIAS 91; PULSE 78; PULSE 85; RESP 15; RESP 20; TEMP 98.1
--- NOTE | 2025-01-21 12:30 | NUR ---
GAVE REPORT TO DAMARIS CABELLO, PATIENT WAS TRANSPORTED VIA ER BED ALONG WITH ALL HIS BELONGINGS.
--- NOTE | 2025-01-21 13:45 | CONS ---
[facility] CARDIOLOGY CONSULTATION REPORT Cardiology consultation note dictated for Joni Sousa MD Primary reagent tender helper: Mich Davenport MD Date Patient Seen: Jan 21, 2025 Requesting Physician: Sae Sorenson MD Reason for Consultation: Chest pain History of Present Illness: This is a 75-year-old male with a past medical history of hypertension, hypercholesteremia, diabetes mellitus type 2, CAD status post aortocoronary bypass graft surgery with RAY graft to the LAD, a saphenous vein graft to the obtuse marginal artery, and saphenous vein graft to the diagonal artery in January of 2017, Lexiscan stress test on 06/19/2021 demonstrated Anterior and lateral ischemia with an LVEF of 56%,orthostatic hypotension s/p tilt-table exam on 10/24/2023 demonstrated progressive orthostatic hypotension with no evidence to support vasovagal, POTS, or autonomic dysfunction, venous insufficiency, hypothyroidism, infrarenal abdominal aortic aneurysm measuring 4.7 cm with 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 Sales, BPH, and neurogenic bladder with chronic Palomares catheter who presented to the ED with complaints of chest pain. Cardiology has been consulted for chest pain. Yesterday at approximately 5:00 p.m., the patient developed constant, left-sided chest discomfort with radiation to the posterior neck and back. The patient described the discomfort as a stabbing quality with an 10/10 intensity. He took 2 tablets of Tylenol at the recommendation of his PCP and fell asleep at 9:00 p.m.. Around 344, the patient woke up and noticed the same chest discomfort and sought medical attention. Symptoms have been unrelenting and are aggravated by movement, deep inspiration, and palpation. He denies any falls or trauma. He does admit to lifting his bed 2wks ago and again 1 week ago. He recalls the same symptoms two weeks ago sometime after lifting his bed as well. Cardiac enzymes have been negative x2. EKG demonstrated sinus arrhythmia with heart rate of 57bpm. Telemetry reported a heart rate of 41 bpm at 1430, the patient is not on any AV jack blocking agents. Past Medical History: As per HPI and summarized below Past Surgical History: CAD status post aortocoronary bypass graft surgery with RAY graft to the LAD, a saphenous vein graft to the obtuse marginal artery, and saphenous vein graft to the diagonal artery in January of 2017 Hernia repair Family History: Father: , diagnosed with Diabetes, Hypertension, Heart Disease Mother: , diagnosed with Cancer, Hypertension Social History: The patient lives alone. Habits: The patient denies alcohol, tobacco, or illicit drug use. Home Meds: Keppra 500 mg b.i.d. Linzess 290 mcg daily Omeprazole 20 mg daily Ranolazine 500 mg b.i.d. Aspirin 81 mg daily Atorvastatin 40 mg daily Levothyroxine 50 mcg daily Current Meds: Medications Dose Ordered Sig/Martin Start Time Stop Time Status Last Admin Nitroglycerin 0.4 mg Q5M PRN 01/21/25 06:30 Famotidine 20 mg BID 01/21/25 21:00 02/20/25 20:59 Aspirin 81 mg DAILY 01/22/25 09:00 02/21/25 08:59 Atorvastatin Calcium 40 mg HS 01/21/25 21:00 02/20/25 20:59 Acetaminophen 500 mg Q6H PRN 01/21/25 10:00 02/20/25 09:59 Hydralazine HCl 10 mg Q6H PRN 01/21/25 10:00 02/20/25 09:59 Levothyroxine Sodium 50 mcg SYN 01/22/25 06:30 02/21/25 06:29 Ranolazine 500 mg BID 01/21/25 21:00 02/20/25 20:59 Home Med Linaclotide (Linzess) 1 CAP DAILY 01/22/25 09:00 02/21/25 08:59 Levetiracetam 500 mg BID 01/21/25 13:00 02/20/25 12:59 Review of Systems: CONST: No fever, fatigue, or weight changes. EYES: No recent vision problems. ENT: No congestion, ear pain, or sore throat. C/V: Admits to left sternal chest discomfort that is aggravated by deep inspiration, palpation, and movement. RESP: No cough, congestion, wheezing or shortness of breath. GI: No abdominal pain, nausea, vomiting, constipation, or diarrhea. : No incontinence or dysuria. SKIN: No rash. NEURO: No headache, focal numbness or weakness, dizziness, or seizures. PSYCH: No depression or anxiety. HEME: No abnormal bruising or bleeding. LYMPH: No swollen glands. Physical Examination: GENERAL: No acute distress. HEAD: Normal with no signs of head trauma. EYES: PERRLA, EOMI, conjunctiva and sclera normal. ENT: Hearing grossly intact, normal oropharynx. NECK: Supple without JVD. There is no tenderness, lymphadenopathy, or masses. No thyromegaly. Normal carotid upstrokes without bruits. LUNGS: Clear breath sounds bilaterally. No wheezes, or rhonchi. HEART: Slow rate and normal rhythm. Normal S1 and S2 without murmurs, gallop or rub. VASC: Peripheral pulses +2 bilaterally. ABD: Bowel sounds normal, soft, nontender, no masses, no organomegaly. No audible bruits. : Not examined LYMPH: No lymphadenopathy noted. EXT: No clubbing, cyanosis or edema. SKIN: No rashes or lesions noted. NEURO: Awake, alert, and oriented x3. No focal sensory or strength deficits noted. Vital Signs (last 8hr) Date Time Temp Pulse Resp B/P (MAP) Pulse Ox O2 Delivery O2 Flow Rate FiO2 01/21/25 12:30 98.1 78 15 105/67 99 Room Air 0.0 01/21/25 12:30 85 20 119/91 99 Room Air 01/21/25 07:30 68 18 128/68 97 Room Air* 0 21 01/21/25 06:12 98.1 60 16 124/72 99 Room Air* 0 21 01/21/25 05:48 97.0 77 20 125/84 97 Room Air Laboratory: Hematology Labs: Test 01/21/25 06:06 Range/Units White Blood Count 5.0 4.8-10.8 K/uL Red Blood Count 4.53 4.50-6.20 MIL/uL Hemoglobin 14.4 14.0-18.0 g/dL Hematocrit 40.5 L 42-54 % Mean Corpuscular Volume 89.4 79-99 fL Mean Corpuscular Hemoglobin 31.8 27.0-33.0 pg Mean Corpuscular Hemoglobin Concent 35.6 32.0-36.0 g/dL Red Cell Distribution Width 13.9 11.0-15.5 % Platelet Count 196 130-400 K/uL Mean Platelet Volume 10.3 7.5-10.5 fL Immature Granulocyte % (Auto) 0.4 0-1 % Neutrophils (%) (Auto) 35.5 L 40.0-77.0 % Lymphocytes (%) (Auto) 51.8 H 21.0-51.0 % Monocytes (%) (Auto) 10.3 3.0-13.0 % Eosinophils (%) (Auto) 1.6 0.0-8.0 % Basophils (%) (Auto) 0.4 0.0-5.0 % Neutrophils # (Auto) 1.8 1.8-7.7 K/uL Lymphocytes # (Auto) 2.6 1.0-4.8 K/uL Monocytes # (Auto) 0.5 0.1-1.0 K/uL Eosinophils # (Auto) 0.08 0.00-0.70 K/uL Basophils # (Auto) 0.02 0.00-0.20 K/uL Absolute Immature Granulocyte (auto 0.02 0-1 K/uL Nucleated Red Blood Cells 0.0 0.0-0.19 % Chemistry Labs: Test 01/21/25 09:27 01/21/25 06:06 Range/Units Sodium Level 132 L 136-145 mmol/L Potassium Level 4.4 3.5-5.1 mmol/L Chloride Level 100 L 101-111 mmol/L Carbon Dioxide Level 28 21-32 mmol/L Blood Urea Nitrogen 6 L 7-18 mg/dL Creatinine 0.8 0.5-1.3 mg/dL Glomerular Filtration Rate Calc 91 >90 mL/min Random Glucose 101 70-105 mg/dL Total Calcium 9.0 8.5-10.1 mg/dL Troponin I High Sensitivity 11 4-75 ng/L Thyroid Stimulating Hormone (TSH) 0.16 #L 0.36-3.74 uIU/mL Hemoglobin A1c 5.7 4.0-6.0 % Estimated Average Glucose (eAG) 117 70-126 mg/dL Procalcitonin < 0.05 L 0.05-0.5 ng/mL Coagulation Labs: Test 01/21/25 06:06 Range/Units D-Dimer Quantitative (PE/DVT) 4283 *H 0-500 ng/mL Diagnostics / Radiology: Impression and Plan: Costochondritis: -Recommend anti-inflammatory agents -Clear for discharge home Asymptomatic resting sinus bradycardia: Heart rate as low as 41bpm at 1430 while awake laying in bed -Avoid rate lowering medications Comorbidities: Hypertension Hypercholesteremia Diabetes mellitus type 2 CAD status post aortocoronary bypass graft surgery with RAY graft to the LAD, a saphenous vein graft to the obtuse marginal artery, and saphenous vein graft to the diagonal artery in January of 2017 Lexiscan stress test on 06/19/2021 demonstrated Anterior and lateral ischemia with an LVEF of 56% Orthostatic hypotension S/p tilt-table exam on 10/24/2023 demonstrated progressive orthostatic hypotension with no evidence to support vasovagal, POTS, or autonomic dysfunction Venous insufficiency Hypothyroidism Infrarenal abdominal aortic aneurysm measuring 4.7 cm with 2.5 cm right iliac aneurysm via CT on 10/13/2018 status post endoluminal graft placement in November 2018 Cerebral angiogram in 11/2024 status post subdural hematoma with an MMA embolization Cerebral angiogram in 11/2024 demonstrated LICA with 50% stenosis, left vertebral artery with 80% stenosis with medical management unless symptomatic per Dr. Sales BPH Neurogenic bladder with chronic Palomares catheter PHYSICIAN ATTESTATION OF PHYSICIAN MEDICAL RESEARCH TECH DOCUMENTATION: I attest that I was physically present for the curiel portions of the service and evaluated the patient with the Physician Restaurant Worker, and I reviewed and discussed the case with the Physician Restaurant Worker and made modifications to the Physician Restaurant Worker's findings and plans of care as documented above FER GAFFNEY Jan 21, 2025 13:45 JONI SOUSA MD Jan 21, 2025 19:28
[2025-01-21 13:55] VITALS: O2SAT 96
[2025-01-21 16:00] VITALS: BP 112/71; PULSE 60; RESP 20; TEMP 97.8
[2025-01-21 19:24] VITALS: BP 122/71; PULSE 60; RESP 18; TEMP 97.7
[2025-01-21] MEDS: NAPROXEN 250 MG TAB PO SCH (20:17)
[2025-01-21] MEDS: FAMOTIDINE 20MG VIAL IV SCH (20:17)
[2025-01-21] MEDS: RANOLAZINE 500 MG TAB.SR.12H PO SCH (20:17)
[2025-01-21 21:30] VITALS: O2SAT 96
--- NOTE | 2025-01-21 23:05 | HMCSR ---
APPROVED REPORT EXAM: Two-dimensional and M-mode echocardiogram with Doppler and color Doppler. INDICATION ICD: Chest Pain Chest Pressure 2D Dimensions RVDd4.2 cmLVEF(%)41.9 (>50%)LVED Vol(simp.)91.6 mL IVSd0.7 (0.7-1.1cm)FS(%)20 %LVES Vol(simp.)37.3 mL LVDd4.4 (3.8-5.6cm)LA (2D)4.0 (1.6-4.0cm)LVEF(%, simp.)59 % PWd1.0 (0.7-1.1cm)Ao Root(2D)3.0 (2.0-3.7cm)LA ESV INDEX (BP)35.19 mL/m2 LVDs3.5 (2.5-4.0cm)LVOT diam2.2 (1.8-2.4cm) Deformation Strain Apical 4-18.0 % Apical 2-16.7 % Apical 3-16.4 % Global Strain-17.0 % M-Mode Dimensions EPSS3.1 cm Aortic Valve AoV Vmax1.3 m/Jazmyn Peak GR6.8 mmHgLVOT Vmax1.3 m/s AoV VTI0.3 mAo Mean GR3.2 mmHgLVOT VTI0.29 m JUAN A (VMAX)3.65 cm2Al P1/2T690 msAVA (VTI) 3.4 cm2 Mitral Valve MV E Vmax87.1 cm/sDECEL Phsl770 ms MV A Dqdq105.1 cm/sP 1/2 T130 ms E/A ratio0.7MVA (PHT)1.7 cm2 TDI E/E' Bckark84.2E/E' Bmpqxba25.5 Medial E' Peak V4.32 cm/sLateral E' Peak V8.30 cm/s Pulmonary Valve PV Vmax0.8 m/sPV VTI0.21 mPV Mean GR1.3 mmHg PV Peak GR2.5 mmHg Tricuspid Valve TR Vmax2.3 m/sRVSP20.1 mmHg TR Peak GR23.8 mmHg Left Ventricle The left ventricle is normal size. Apical septal and apical hypokinesis. GMS -17%. There is normal le ft ventricular wall thickness. LVEF is 50-55%. Stage I diastolic dysfunction. Right Ventricle The right ventricle is mildly dilated. The right ventricular systolic function is normal. Atria The left atrium is mildly dilated. The right atrium size is normal. Aortic Valve Aortic valve is trileaflet and mildly sclerotic. There is no aortic valvular stenosis. Trace aortic r egurgitation. There is no aortic valvular stenosis. Mitral Valve Mitral valve leaflets open well. Mitral valve leaflets are mildly sclerotic. There is no mitral valve regurgitation noted. There is no mitral valve stenosis. Tricuspid Valve The tricuspid valve is normal in structure. There is trace tricuspid valve regurgitation noted. Pulmonic Valve The pulmonary valve is normal in structure. There is no pulmonic valvular regurgitation. Great Vessels The aortic root is normal in size. The IVC was not visualized. Pericardium There is no pericardial effusion. Conclusion The left ventricle is normal size. There is normal left ventricular wall thickness. Apical septal and apical hypokinesis. LVEF is 50-55%. GMS -17%. Stage I diastolic dysfunction. Aortic valve is trileaflet and mildly sclerotic. There is no aortic valvular stenosis. Mitral valve leaflets open well. Mitral valve leaflets are mildly sclerotic. There is no mitral valve stenosis. There is no pericardial effusion.
[2025-01-21 23:23] VITALS: BP 131/79; PULSE 69; RESP 18; TEMP 97.8
[2025-01-22 03:38] VITALS: BP 101/68; PULSE 62; RESP 18; TEMP 97.9
[2025-01-22 07:02] LABS: IMMATURE GRANULOCYTE ABSOLUTE 0.02 K/uL (0-1); NUCLEATED RED BLOOD CELLS 0.0 % (0.0-0.19); PLATELET COUNT (AUTO) 145 K/uL (130-400); RED BLOOD CELL COUNT(AUTO) 4.12 MIL/uL (4.50-6.20); RED CELL DISTRIBUTION WIDTH 13.8 % (11.0-15.5); WHITE BLOOD COUNT (AUTO) 4.8 K/uL (4.8-10.8)
[2025-01-22 07:11] LABS: CREATININE 0.7 mg/dL (0.5-1.3); GLOMERULAR FILTR. RATE CALC 95.0 mL/min (>90); GLUCOSE,RANDOM 90.0 mg/dL (70-105); SODIUM SERUM 135.0 mmol/L (136-145); UREA NITROGEN, BLOOD 6.0 mg/dL (7-18)
[2025-01-22 08:00] VITALS: BP 101/64; PULSE 55; RESP 17; TEMP 98
[2025-01-22] MEDS: ASPIRIN 81MG CHEW TAB PO SCH (08:36)
[2025-01-22] MEDS: Linaclotide (Linzess) 1 CAP PO SCH (08:39)
[2025-01-22] MEDS ORDERED: NON-FORMULARY MEDICATION 1 EACH (Omeprazole 1 CAP) PO SCH (09:00)
[2025-01-22 10:17] VITALS: O2SAT 96
[2025-01-22 12:00] VITALS: BP 111/56; PULSE 63; RESP 17; TEMP 97.6
--- NOTE | 2025-01-22 15:43 | NUR ---
DCP Home Pt awake, alert, oriented X3 lives alone. PCP Denise Ann MD. Pt primary point of contact is son Mich Calderon [phone]. Pt states he has provider services that takes him to Dr appointments if needed, pt has a walker, and anticipates discharge plan is home. Addendum: 01/22/25 at 1546 by EDWARD PONCE RN CM Amended: Links added.
[2025-01-22 16:00] VITALS: BP 113/66; PULSE 56; RESP 17; TEMP 97.6
--- NOTE | 2025-01-22 18:34 | DS ---
Discharge Summary Hospital Course Summary: The patient is a 75-year-old male with a past medical history of coronary artery disease status post CABG x4, diabetes mellitus type 2, hypertension, history of PE, history of subdural hematoma in 2023 who presented to the emergency department secondary to chest pain. Patient stated that he has been having intermittent episodes of chest pain located in the midsternal area since the past 1 week before presentation. He stated that the pain radiates towards his back and towards his neck. The patient denied any pain in the arms, paresthesias, nausea, vomiting, shortness of breaths, falls, syncopal episodes, fever, and chills. Initial labs in the emergency department were notable for a white count of 5.0, hemoglobin of 14.4, platelet count of 196 K, sodium of 132, potassium of 4.4, creatinine of 0.8, D-dimer of 4283, and a negative troponin. Patient was admitted to the hospitalist service on 01/21/2025 for evaluation of his chest pain. Patient's EKG was read as sinus arrhythmia and his repeat troponins were negative. The patient underwent CT to rule out PE which came back as negative for any acute processes. DVTs were ruled out with venous Doppler ultrasound of the bilateral lower extremities. Due to the patient's history of subdural hematoma we performed a CT head which revealed no acute abnormalities. Cardiology was consulted who recommended an echocardiogram which revealed an ejection fraction of 50-55% and stage I diastolic dysfunction. After ruling out ACS, PE, and DVT, the patient was observed overnight. Laboratory tests were also remarkable for a TSH of 0.16 which was followed up with a free T3 of 1.62 and a free T4 of 1.02. By 01/22/2025, the patient's labs have normalized and his vitals have been stable. As the patient was hemodynamically and clinically stable and serious causes of his chest pain were ruled out, he was diagnosed with costochondritis and is being discharged home with advice to take pain medication for his mild pain. 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 [place] [id number] IMAGING REPORT Signed PATIENT: JOSEPH VINCENT MR#: [id number] : 1950 SEX: M AGE: 75 LOCATION: [facility] ORDER 4 STATUS: REG ER REPORT#: [id number] SERVICE 2 REASON: chest pain ORDERING PHYSICIAN: OFELIA CLARKE MD PROCEDURE: CXR1VW - CHEST 1VW EXAM: CR Chest, 1 View. CLINICAL HISTORY: chest pain COMPARISON: 04/28/24 8:30 EST CR - CHEST 1VW FINDINGS: LUNGS: There is no mass, infiltrate, or acute pulmonary abnormality. PLEURAL SPACES: No evidence of pleural effusion or pneumothorax. MEDIASTINUM: Cardiac size and mediastinal contours within normal limits. BONES: No acute osseous abnormality. IMPRESSION: No acute cardiopulmonary pathology is evident. /[place] DICTATED BY: ROSCOE HAIRSTON Jr., MD DATE: 01/21/25850 ELECTRONICALLY SIGNED BY: ROSCOE HAIRSTON Jr., MD DATE: 01/21/258[address] [place] [address] [place] [address] IMAGING REPORT Signed PATIENT: JOSEPH VINCENT MR#: [id number] : 1950 SEX: M AGE: 75 LOCATION: [facility] ORDER 4 STATUS: ADM IN REPORT#: [id number] SERVICE 3 REASON: r/o PE ORDERING PHYSICIAN: AMMY CARDONA MD PROCEDURE: CHES PE - CT CHEST PE PROTOCOL WWO CONT CT CHEST PE PROTOCOL WWO CONT REASON: r/o PE TECHNIQUE: Thin axial images through the chest were obtained during bolus intravenous administration of 75 ml of Omnipaque 350. Sagittal and coronal reconstruction images were performed. FINDINGS: The main pulmonary arteries and their first and second order branches have normal caliber and enhancement throughout. No intraluminal filling defect is identified. Thoracic aorta is unremarkable. Heart size is within normal limits. Patient is status post median sternotomy. There is coronary calcification suggesting of coronary artery disease. There is suggestion of patient has had prior cardiac revascularization procedure. No pleural or pericardial effusion is identified. Lungs are clear. No pneumothorax is noted. There is no mediastinal or axillary lymphadenopathy. There is osteoarthritic changes and degenerative changes with calcified plaque involving the thoracic and lumbar spine. Limited evaluation of the upper abdomen demonstrate cholelithiasis. The visualized portions of the liver and spleen appears to be normal. IMPRESSION: No evidence of pulmonary embolism or aortic dissection. Cholelithiasis Status post median sternotomy with coronary calcification suggesting of possible cardiac revascularization procedure. CT was performed with one or more following dose reduction techniques: automated exposure control, adjustment of the mA and kv according to patient's size, or use of a iterative reconstruction technique. DICTATED BY: YENIFER PIERRE MD DATE: 01/21/25 1020 ELECTRONICALLY SIGNED BY: YENIFER PIERRE MD DATE: 01/21/25 1025 [place] [address] IMAGING REPORT Signed PATIENT: JOSEPH VINCENT MR#: [id number] : 1950 SEX: M AGE: 75 LOCATION: [facility] ORDER 7 STATUS: ADM IN REPORT#: [id number] SERVICE 0935 REASON: chest pain ORDERING PHYSICIAN: FABIAN CARLISLE MD PROCEDURE: ECHO CMP - ECHO 2-D COMPLETE APPROVED REPORT EXAM: Two-dimensional and M-mode echocardiogram with Doppler and color Doppler. INDICATION ICD: Chest Pain Chest Pressure 2D Dimensions RVDd 4.2 cm LVEF(%) 41.9 (>50%) LVED Vol(simp.) 91.6 mL IVSd 0.7 (0.7-1.1cm) FS(%) 20 % LVES Vol(simp.) 37.3 mL LVDd 4.4 (3.8-5.6cm) LA (2D) 4.0 (1.6-4.0cm) LVEF(%, simp.) 59 % PWd 1.0 (0.7-1.1cm) Ao Root(2D) 3.0 (2.0-3.7cm) LA ESV INDEX (BP) 35.19 mL/m2 LVDs 3.5 (2.5-4.0cm) LVOT diam 2.2 (1.8-2.4cm) Deformation Strain Apical 4 -18.0 % Apical 2 -16.7 % Apical 3 -16.4 % Global Strain -17.0 % M-Mode Dimensions EPSS 3.1 cm Aortic Valve AoV Vmax 1.3 m/s Ao Peak GR 6.8 mmHg LVOT Vmax 1.3 m/s AoV VTI 0.3 m Ao Mean GR 3.2 mmHg LVOT VTI 0.29 m JUAN A (VMAX) 3.65 cm2 Al P1/2T 690 ms JUAN A (VTI) 3.4 cm2 Mitral Valve MV E Vmax 87.1 cm/s DECEL Time 312 ms MV A Vmax 121.1 cm/s P 1/2 T 130 ms E/A ratio 0.7 MVA (PHT) 1.7 cm2 TDI E/E' Medial 20.2 E/E' Lateral 10.5 Medial E' Peak V 4.32 cm/s Lateral E' Peak V 8.30 cm/s Pulmonary Valve PV Vmax 0.8 m/s PV VTI 0.21 m PV Mean GR 1.3 mmHg PV Peak GR 2.5 mmHg Tricuspid Valve TR Vmax 2.3 m/s RVSP 20.1 mmHg TR Peak GR 23.8 mmHg Left Ventricle The left ventricle is normal size. Apical septal and apical hypokinesis. GMS - 17%. There is normal left ventricular wall thickness. LVEF is 50-55%. Stage I diastolic dysfunction. Right Ventricle The right ventricle is mildly dilated. The right ventricular systolic function is normal. Atria The left atrium is mildly dilated. The right atrium size is normal. Aortic Valve Aortic valve is trileaflet and mildly sclerotic. There is no aortic valvular stenosis. Trace aortic regurgitation. There is no aortic valvular stenosis. Mitral Valve Mitral valve leaflets open well. Mitral valve leaflets are mildly sclerotic. There is no mitral valve regurgitation noted. There is no mitral valve stenosis. Tricuspid Valve The tricuspid valve is normal in structure. There is trace tricuspid valve regurgitation noted. Pulmonic Valve The pulmonary valve is normal in structure. There is no pulmonic valvular regurgitation. Great Vessels The aortic root is normal in size. The IVC was not visualized. Pericardium There is no pericardial effusion. Conclusion The left ventricle is normal size. There is normal left ventricular wall thickness. Apical septal and apical hypokinesis. LVEF is 50-55%. GMS -17%. Stage I diastolic dysfunction. Aortic valve is trileaflet and mildly sclerotic. There is no aortic valvular stenosis. Mitral valve leaflets open well. Mitral valve leaflets are mildly sclerotic. There is no mitral valve stenosis. There is no pericardial effusion. DICTATED BY: JONI GARDUNO MD DATE: 01/21/25 1425 ELECTRONICALLY SIGNED BY: JONI GARDUNO MD DATE: 01/21/25 25[address] [place] [address] IMAGING REPORT Signed PATIENT: JOSEPH VINCENT MR#: [id number] : 1950 SEX: M AGE: 75 LOCATION: [facility] ORDER 1039 STATUS: ADM IN REPORT#: [id number] SERVICE 1038 REASON: history of subdural hematoma ORDERING PHYSICIAN: FABIAN CARLISLE MD PROCEDURE: HEAD WO - CT HEAD/BRAIN W/O CONTRAST Exam: NONCONTRAST CT BRAIN REASON: history of subdural hematoma . COMPARISON: Prior study from 04/12/2024 is available. TECHNIQUE: Images are obtained from vertex to the skull base. The exam was performed without IV contrast. FINDINGS: There is normal appearing brain parenchyma. There are no focal mass lesions. There is is no evidence of intracranial hemorrhage or acute stroke. Ventricles and sulci appear normal. Posterior fossa and brainstem structures are unremarkable. Paranasal sinuses and remaining extracranial soft tissues appear normal as well.There is global atrophy consistent with patient's chronological age. IMPRESSION: 1. No acute intracranial process CT was performed with one or more following dose reduction techniques: automated exposure control, adjustment of the mA and kv according to patient's size, or use of a iterative reconstruction technique. DICTATED BY: YENIFER PIERRE MD DATE: 01/21/25 1146 ELECTRONICALLY SIGNED BY: YENIFER PIERRE MD DATE: 01/21/25 1151 [facility] [address] [place] [address] IMAGING REPORT Signed PATIENT: JOSEPH VINCENT MR#: [id number] : 1950 SEX: M AGE: 75 LOCATION: [facility] ORDER 1044 STATUS: ADM IN REPORT#: [id number] SERVICE 1043 REASON: assess for DVT ORDERING PHYSICIAN: FABIAN CARLISLE MD PROCEDURE: VENOUS KUSH - US VENOUS DOPPLER BILATERAL US VENOUS DOPPLER BILATERAL REASON: assess for DVT COMPARISON: None Technique: Bilateral venous doppler ultrasound was performed with spectral analysis and color flow imaging technique. FINDINGS: There is a normal appearance of the common femoral, deep femoral, the profunda femoris and popliteal veins. Proximal calf veins appear normal as well. There is normal response to compression and augmentation. There is no evidence of deep venous thrombosis. IMPRESSION: Normal bilateral lower extremity venous Doppler ultrasound. DICTATED BY: YENIFER PIERRE MD DATE: 01/21/25 1159 ELECTRONICALLY SIGNED BY: YENIFER PIERRE MD DATE: 01/21/25 1202 Assessment/Plan: ASSESSMENT: Chest pain ACS rule out POA differential unstable angina versus muscular skeletal pain Elevated D-dimer with negative PE Hyperkalemia improved Constipation Hypothyroidism Hypertension Diabetes mellitus type 2 History of PE History of subdural hematoma status post evacuation in [facility] in 2023 History of BPH Urinary retention status post Palomares catheter placement Discharge Instructions: You were admitted with chest pain in the midsternal area that has been present for 1 week. You were evaluated for serious causes such as pulmonary embolism and myocardial infarction (heart attack), and both were ruled out. Your chest pain was diagnosed as costochondritis, which is inflammation of the chest wall cartilage. You are now stable and being discharged home. Costochondritis often improves with time and supportive care. At home, you may take pain relievers as prescribed, use warm compresses, and avoid activities that worsen your pain. Gentle stretching and posture may also help. Please follow up with your primary care provider for ongoing monitoring and management. If you develop new or worsening chest pain, shortness of breath, dizziness, sweating, fainting, or pain that feels different from before, seek emergency medical care immediately. Home Medications: Reported Medications Linaclotide (Linzess) 290 Mcg Capsule, 1 CAP PO DAILY for 30 Days, #30 CAP 0 Refills 01/21/25 Omeprazole (Omeprazole) 20 Mg Capsule.dr, 1 CAP PO DAILY for 30 Days, #30 CAP 0 Refills 01/21/25 Levetiracetam (Levetiracetam) 500 Mg Tab.er.24h, 1 TAB PO BID for 30 Days, #60 TAB 0 Refills 01/21/25 Ranolazine (RANEXA) 500 Mg Tab.er.12h, 500 MG PO BID, TAB 02/02/22 Aspirin (ASPIRIN 81 MG ECTAB) 81 Mg Ectab, 81 MG PO DAILY, TAB.EC 02/15/21 Atorvastatin Calcium (LIPITOR) 40 Mg Tablet, 40 MG PO DAILY, TAB 12/08/18 Levothyroxine Sodium (Synthroid 50 Mcg Tab) 50 Mcg Tablet, 50 MCG PO ACBKFST, TAB 12/16/16 Discontinued Reported Medications Meclizine HCl (Meclizine HCl) 12.5 Mg Tablet, 12.5 MG PO HS, TAB 08/02/22 Metformin HCl (Metformin HCl ER) 500 Mg [id number], 500 MG PO BID 08/02/22 Metoprolol Succinate (Metoprolol Succinate) 25 Mg Tab.er.24h, 25 MG PO BID, TAB 08/02/22 Doxazosin Mesylate (Doxazosin Mesylate) 8 Mg Tablet, 8 MG PO DAILY, TAB 08/02/22 Magnesium (Magnesium) 250 Mg Tablet, 250 MG PO HS, TAB 02/02/22 Lorazepam (Lorazepam) 0.5 Mg Tablet, 0.5 MG PO BID PRN for SLEEP, TAB 12/08/18 Acarbose (Acarbose) 25 Mg Tablet, 25 MG PO BID, TAB 12/16/16 Dutasteride (Dutasteride) 0.5 Mg Capsule, 0.5 MG PO DAILY, CAP 8/6/17 Discontinued Scripts Tamsulosin HCl (Flomax) 0.4 Mg Cap.er.24h, 0.4 MG PO DAILY for 20 Days, #20 CAPSULE.DR Prov:ABIOLA WALLACE NP 06/12/24 Levofloxacin (Levofloxacin) 500 Mg Tablet, 1 TAB PO DAILY for 10 Days, #10 TAB 0 Refills Prov:ABIOLA WALLACE EDGER RUNNER 06/12/24 Dicyclomine HCl (Bentyl) 20 Mg Tab, 1 TAB PO QID for irritable bowel symptoms for 30 Days, #120 TAB 0 Refills Prov:ABIOLA WALLACE EDGER RUNNER 03/13/24 Hydroxyzine Pamoate (Hydroxyzine Pamoate) 100 Mg Capsule, 1 CAP PO HS for 30 Days, #30 CAP 0 Refills Prov:ABIOLA WALLACE EDGER RUNNER 03/13/24 Cefpodoxime Proxetil (Cefpodoxime Proxetil) 200 Mg Tablet, 200 MG PO BID for 10 Days, #20 TAB Prov:RENE COSME DO 09/27/23 Levofloxacin (Levofloxacin) 500 Mg Tablet, 500 MG PO DAILY for 7 Days, #7 TAB Prov:ABIOLA WALLACE NP 09/07/23 Pindolol (Pindolol) 10 Mg Tablet, 5 MG PO DAILY for 30 Days, #30 TAB 0 Refills Prov:ANGELA GANDHI MD 08/04/23 Doxycycline Hyclate (Doxycycline Hyclate) 100 Mg Tablet.dr, 100 MG PO BID, #20 TAB Prov:JASON SCHNEIDER MD 07/05/23 Mupirocin (Mupirocin Ointment) 2 % Oint, 1 APPLIC TP BID for 10 Days, #30 G Prov:JUDAH WALSH 06/14/23 Clindamycin HCl (Clindamycin HCl) 300 Mg Capsule, 1 CAP PO TID for 10 Days, #30 CAP 0 Refills Prov:JUDAH WALSH 06/14/23 Meloxicam, Submicronized (Meloxicam) 10 Mg Capsule, 10 MG PO DAILY PRN for PAIN, #30 CAP Prov:JASON SCHNEIDER MD 06/05/23 Amlodipine Besylate (Norvasc 2.5MG Tab) 2.5 Mg Tablet, 2.5 MG PO DAILY, #30 TAB Prov:JASON SCHNEIDER MD 06/04/23 Famotidine (Pepcid) 20 Mg Tablet, 20 MG PO DAILY, #15 TAB 0 Refills Prov:ANGELA GANDHI MD 07/19/22 Nitroglycerin (Nitrostat) 0.4 Mg Tab.subl, 0.4 MG SL AD for 25 Days, #25 TAB.SL Prov:CHRISTELLE MCCALL Jr., MD 10/13/18 Continued Medications: Aspirin (Aspirin 81 Mg Ectab) 81 Mg Ectab 81 MG PO DAILY, TAB.EC Atorvastatin Calcium (Lipitor) 40 Mg Tablet 40 MG PO DAILY, TAB Levetiracetam (Levetiracetam) 500 Mg Tab.er.24h 1 TAB PO BID for 30 Days, #60 TAB 0 Refills Levothyroxine Sodium (Synthroid 50 Mcg Tab) 50 Mcg Tablet 50 MCG PO ACBKFST, TAB Linaclotide (Linzess) 290 Mcg Capsule 1 CAP PO DAILY for 30 Days, #30 CAP 0 Refills Omeprazole (Omeprazole) 20 Mg Capsule.dr 1 CAP PO DAILY for 30 Days, #30 CAP 0 Refills Ranolazine (Ranexa) 500 Mg Tab.er.12h 500 MG PO BID, TAB Time spent arranging discharge: 1-30 minutes ATTESTATION BY PHYSICIAN I have seen and examined the patient. I reviewed the documentation, medical decision making, and treatment plan as noted by the resident provider above. I agree with the findings and plan of care. Berto Chandler MD, HEMA MD Jan 22, 2025 18:34
== END 2025-01-22 18:25 | disposition home or self-care (01) ==
LOC: EDH 05:46 → INTOOBSV 09:35 → UNDOADMOB 09:35 → EDHIP 09:35 → 2DH 12:30 → EDHIP 12:30 → 2DH 01-22 12:17 → EDHIP 01-22 12:17
PROVIDERS: ADMIT Internal Medicine; ATTEND Internal Medicine
DX: R07.89 Other chest pain (principal); M94.0 Chondrocostal junction syndrome [Tietze]; E87.5 Hyperkalemia; K59.00 Constipation, unspecified; E78.00 Pure hypercholesterolemia, unspecified; E03.9 Hypothyroidism, unspecified; R33.8 Other retention of urine; N40.1 Benign prostatic hyperplasia with lower urinary tract symptoms; E11.9 Type 2 diabetes mellitus without complications; I10 Essential (primary) hypertension; N31.9 Neuromuscular dysfunction of bladder, unspecified; R12 Heartburn; R60.0 Localized edema; Z95.5 Presence of coronary angioplasty implant and graft; Z95.1 Presence of aortocoronary bypass graft; Z86.711 Personal history of pulmonary embolism; Z79.82 Long term (current) use of aspirin; Z79.899 Other long term (current) drug therapy
CPT/HCPCS: 96374; 99285; 83036; 84443; 84484 ×3; 80048 ×3; 85025 ×2; 85378; 82948 ×5; 36415 ×2; 71045; 70450; 71270; 93306; 93356; 93970; 93005; 84145; 96376; 84439; 84481; J3490 ×2; Q9967; G0378 ×6

== ENCOUNTER 2025-04-11 07:47 | Emergency (ER) | payer OTHER, MEDICAID ==
[~2025-04-11] VITALS: Ht 172.7 cm; Wt 89.8 kg
[~2025-04-11 07:47] MED LIST changes: -ACAR25TA2 PO; -AMLO2.5T2 PO; -CEFP200T14 PO; -CLIN-141 PO; -DICY20TA2 PO; -DOXA8TAB81 PO; -DOXY-252 PO; -DUTA0.5C37 PO; -FAMO-136 PO; -HYDR100C2 PO; +LEVE-21 PO; -LEVO-70 PO; +LINA290C PO; -LORA0.5T2 PO; -MAGN250T35 PO; -MECL-226 PO; -MELO10CA3 PO; -METF-1150 PO; -METO-408 PO; -MUPI22OI2 TP; -NITR0.4T SL; +OMEP20CA12 PO; -PIND10TA8 PO; -TAMS-55 PO
[2025-04-11] MEDS ORDERED: LIDOCAINE HCL 1% 20 ML VIAL INJ STA (07:53)
--- NOTE | 2025-04-11 08:38 | HMCIMG ---
EXAM: CT Cervical Spine Without IV contrast. CLINICAL HISTORY: fall TECHNIQUE: Axial computed tomography images of the cervical spine without intravenous contrast. Sagittal and coronal reformatted images were generated. COMPARISON: None provided. FINDINGS: ALIGNMENT: Bony alignment is anatomic. DEGENERATIVE CHANGES: Cervical spondylosis is evident by anterior osteophytes, uncovertebral joint hypertrophy, and multilevel facet joint osteoarthritis. There is moderate to severe multilevel degenerative disc disease, more pronounced at C4-C7. No significant canal stenosis or neural foraminal narrowing is evident. SOFT TISSUES: The prevertebral soft tissues are within normal limits. BONES: Linear minimally displaced fracture of the spinous process of the C4 vertebra. IMPRESSION: 1. Linear minimally displaced fracture of the C4 spinous process. 2. No significant canal stenosis or neural foraminal narrowing. /[place]
--- NOTE | 2025-04-11 08:46 | HMCIMG ---
EXAM: CT Head Without IV contrast. CLINICAL HISTORY: fall TECHNIQUE: Axial computed tomography images of the head/brain without intravenous contrast. COMPARISON: None provided. FINDINGS: BRAIN: No evidence of acute hemorrhage. No mass lesion. No CT evidence for acute territorial infarct. No midline shift or extra-axial collections. VENTRICLES: No hydrocephalus. ORBITS: The orbits are unremarkable. SINUSES AND MASTOIDS: The paranasal sinuses and mastoid air cells are clear. BONES: No fracture. SOFT TISSUES: Left frontal soft tissue hematoma. IMPRESSION: 1. No acute intracranial findings. 2. Left frontal soft tissue hematoma. /[place]
--- NOTE | 2025-04-11 08:51 | ERN ---
General Chief Complaint: Mechanical Fall Stated Complaint: FALL Time Seen by MD: 07:52 Source: patient History of Present Illness Initial Comments Patient is a 75-year-old male coming in after he has a trip and a fall landing in his face. Patient states that he did not lose consciousness but he does has a pain in his that has has a face as well as neck region. Allergies: Coded Allergies: Penicillins (Unverified Allergy, Unknown, 12/15/16) codeine (Unverified Allergy, Unknown, 12/15/16) hydrochlorothiazide (Unverified Allergy, Unknown, 12/15/16) morphine (Unverified Allergy, Unknown, 12/15/16) propoxyphene (Unverified Allergy, Unknown, 12/15/16) Home Meds Reported Medications Linaclotide (Linzess) 290 Mcg Capsule, 1 CAP PO DAILY for 30 Days, #30 CAP 0 Refills 01/21/25 Omeprazole (Omeprazole) 20 Mg Capsule.dr, 1 CAP PO DAILY for 30 Days, #30 CAP 0 Refills 01/21/25 Levetiracetam (Levetiracetam) 500 Mg Tab.er.24h, 1 TAB PO BID for 30 Days, #60 TAB 0 Refills 01/21/25 Ranolazine (RANEXA) 500 Mg Tab.er.12h, 500 MG PO BID, TAB 02/02/22 Aspirin (ASPIRIN 81 MG ECTAB) 81 Mg Ectab, 81 MG PO DAILY, TAB.EC 02/15/21 Atorvastatin Calcium (LIPITOR) 40 Mg Tablet, 40 MG PO DAILY, TAB 12/08/18 Levothyroxine Sodium (Synthroid 50 Mcg Tab) 50 Mcg Tablet, 50 MCG PO ACBKFST, TAB 12/16/16 Past Medical History Past Medical History: Diabetes-Type II, High Cholesterol, Heart Disease, Hypertension, Other Medical History Other: PROSTATE PROBLEM; QUADRUPLE BYPASS Past Surgical History: CABG, Other Surgical History Other: CARDIAC STENTS Family History Family History: CAD, DM, HTN Social History Social History: Negative, Lives with family ROS Dictation CONSTITUTIONAL: No chills, no fever, no weakness, no diaphoresis, no malaise. HEAD/FACE: signs of trauma. EENT: No eye pain, no blurred vision, no tearing, no double vision, no ear pain, no ear discharge, no nose pain, no nasal congestion, no throat pain, no throat swelling, no mouth pain. RESPIRATORY: No cough, no orthopnea, no SOB, no stridor, no wheezing. CARDIOVASCULAR: No chest pain, no edema, no palpitations, no syncope. GASTROINTESTINAL/ABDOMINAL: No abdominal pain, no constipation, no diarrhea, no nausea, no vomiting. GENITOURINARY: No abnormal discharge, no dysuria, no frequent urination, no hematuria. No complaints of pain in the genitals. MUSCULOSKELETAL: No back pain, no gout, no joint pain, no joint swelling, no muscle pain, no muscle stiffness, no neck pain. INTEGUMENTARY: No change in color, no change in hair/nails, no dryness, no lesion, no lumps, no rash. NEUROLOGICAL/PSYCH: No anxiety, not depressed, no emotional problem, no headache, no numbness, no pre-existing deficit, no history of seizures, no tremors, no weakness. HEMATOLOGIC/LYMPHATIC: Not anemic, no history of blood clots, no apparent bleeding, no bruising, glands not swollen. All Systems Negative, Except as Noted. Physical Exam Physical Exam Dictation VITAL SIGNS: Reviewed. GENERAL APPEARANCE: Alert, oriented x3, no acute distress, obese. HEAD AND FACE: traumatic. Left facial falling laceration EYES: PERRL, pink conjunctivas, eyelid no trauma, anterior chamber clear. EARS: Pinnas intact and no signs of trauma or erythema. Ear canals clear and no discharge. TMs no erythema. NOSE: No discharge, no bleeding. OROPHARYNX: Mouth normal, teeth no caries, tongue pink. Pharynx clear, no erythema. Tonsils no exudates, no abscesses noted. Mucous membrane moist. NECK: Supple, non-tender, no thyromegaly, no masses, no JVD, no bruits. BREAST: Deferred. CHEST: No tenderness, no crepitus, no paradoxical movement, no retractions. LUNGS: Clear, well-ventilated, symmetric, no rales, no wheezing, no rhonchi, no stridor, good breath sounds bilaterally. HEART: Regular rate, regular rhythm, no murmur, no gallops. VASCULAR: No peripheral edema. ABDOMEN: Soft, positive bowel sounds, nondistended, no guarding, nontender, no rebound, no masses no hepatomegaly, no splenomegaly, no Garcia's sign, no hernias. RECTAL: Deferred. GENITAL: Deferred. NEUROLOGICAL: Normal speech, gross motor function intact, gross sensory function intact. MUSCULOSKELETAL: Neck nontender, full range of motion, back nontender, full range of motion. EXTREMITIES: Nontender, full range of motion. SKIN: Color pink, dry, no turgor, no rash, no lacerations, no abrasions, no contusions. LYMPHATICS: Deferred. Results Laboratory and Microbiology Lab and Micro Result Laboratory Tests Test 04/11/25 09:02 White Blood Count 6.1 K/uL (4.8-10.8) Red Blood Count 3.98 MIL/uL (4.50-6.20) L Hemoglobin 13.0 g/dL (14.0-18.0) L Hematocrit 36.2 % (42-54) L Mean Corpuscular Volume 91.0 fL (79-99) Mean Corpuscular Hemoglobin 32.7 pg (27.0-33.0) Mean Corpuscular Hemoglobin Concent 35.9 g/dL (32.0-36.0) Red Cell Distribution Width 13.8 % (11.0-15.5) Platelet Count 159 K/uL (130-400) Mean Platelet Volume 10.1 fL (7.5-10.5) Immature Granulocyte % (Auto) 0.5 % (0-1) Neutrophils (%) (Auto) 71.8 % (40.0-77.0) Lymphocytes (%) (Auto) 18.8 % (21.0-51.0) L Monocytes (%) (Auto) 8.2 % (3.0-13.0) Eosinophils (%) (Auto) 0.5 % (0.0-8.0) Basophils (%) (Auto) 0.2 % (0.0-5.0) Neutrophils # (Auto) 4.4 K/uL (1.8-7.7) Lymphocytes # (Auto) 1.1 K/uL (1.0-4.8) Monocytes # (Auto) 0.5 K/uL (0.1-1.0) Eosinophils # (Auto) 0.03 K/uL (0.00-0.70) Basophils # (Auto) 0.01 K/uL (0.00-0.20) Absolute Immature Granulocyte (auto 0.03 K/uL (0-1) Nucleated Red Blood Cells 0.0 % (0.0-0.19) Prothrombin Time 11.7 SEC (9.6-11.6) H Prothromb Time International Ratio 1.12 (0.85-1.15) Sodium Level 129 mmol/L (136-145) L Potassium Level 3.7 mmol/L (3.5-5.1) Chloride Level 95 mmol/L (101-111) L Carbon Dioxide Level 26 mmol/L (21-32) Blood Urea Nitrogen 3 mg/dL (7-18) L Creatinine 0.8 mg/dL (0.5-1.3) Glomerular Filtration Rate Calc 91 mL/min (>90) Random Glucose 108 mg/dL (70-105) H Total Calcium 8.9 mg/dL (8.5-10.1) Labs Reviewed?: Yes EKG/XRAY/US/CT/MRI CT Scan Comment [address] [place] [address] IMAGING REPORT Signed PATIENT: JOSEPH VINCENT MR#: [id number] : 1950 SEX: M AGE: 75 LOCATION: [facility] ORDER 2 STATUS: REG REPORT#: [id number] SERVICE 1 REASON: fall ORDERING PHYSICIAN: EVER CUELLAR MD PROCEDURE: HEAD WO - CT HEAD/BRAIN W/O CONTRAST EXAM: CT Head Without IV contrast. CLINICAL HISTORY: fall TECHNIQUE: Axial computed tomography images of the head/brain without intravenous contrast. COMPARISON: None provided. FINDINGS: BRAIN: No evidence of acute hemorrhage. No mass lesion. No CT evidence for acute territorial infarct. No midline shift or extra-axial collections. VENTRICLES: No hydrocephalus. ORBITS: The orbits are unremarkable. SINUSES AND MASTOIDS: The paranasal sinuses and mastoid air cells are clear. BONES: No fracture. SOFT TISSUES: Left frontal soft tissue hematoma. IMPRESSION: 1. No acute intracranial findings. 2. Left frontal soft tissue hematoma. /[place] DICTATED BY: DEJAH BAUTISTA MD DATE: 04/11/25944 ELECTRONICALLY SIGNED BY: DEJAH BAUTISTA MD DATE: 04/11/25944 [facility] [address] [place] [address] IMAGING REPORT Signed PATIENT: JOSEPH VINCENT MR#: [id number] : 1950 SEX: M AGE: 75 LOCATION: [facility] ORDER 2 STATUS: REG ER [facility] REPORT#: [id number] SERVICE 1 REASON: fall ORDERING PHYSICIAN: EVER CUELLAR MD PROCEDURE: C SPIN WO - CT CERVICAL SPINE W/O CONTRAST EXAM: CT Cervical Spine Without IV contrast. CLINICAL HISTORY: fall TECHNIQUE: Axial computed tomography images of the cervical spine without intravenous contrast. Sagittal and coronal reformatted images were generated. COMPARISON: None provided. FINDINGS: ALIGNMENT: Bony alignment is anatomic. DEGENERATIVE CHANGES: Cervical spondylosis is evident by anterior osteophytes, uncovertebral joint hypertrophy, and multilevel facet joint osteoarthritis. There is moderate to severe multilevel degenerative disc disease, more pronounced at C4-C7. No significant canal stenosis or neural foraminal narrowing is evident. SOFT TISSUES: The prevertebral soft tissues are within normal limits. BONES: Linear minimally displaced fracture of the spinous process of the C4 vertebra. IMPRESSION: 1. Linear minimally displaced fracture of the C4 spinous process. 2. No significant canal stenosis or neural foraminal narrowing. /[place] DICTATED BY: ROSCOE HAIRSTON Jr., MD DATE: 04/11/25936 ELECTRONICALLY SIGNED BY: ROSCOE HAIRSTON Jr., MD DATE: 04/11/25936 [facility] MDM: Differential diagnosis: C4 fracture, fall, facial laceration, Rationale: Tests considered and ordered secondary to shared decision making include: labs, ECG and radiology Previous outside records reviewed: Old ER visits. Risk of complication and/or morbidity or mortality of patient management: None Medications-Per medication reconciliation Need for hospitalization: Patient does meet criteria for hospitalization. Need for emergency major/minor surgery: No There are no social concerns with this patient. Prescription drug management Prescriptions will include symptomatic care Patient's prior external medical records from other ER visits were reviewed by me as indicated. Prior testing and results from previous visits were reviewed. Prior tests were taken into account with medical decision making and resource utilization, independent historian/historians were used to obtain complete medical history. I independently interpreted the test that were performed, results were reviewed by me and considered findings on radiology if ordered. Medical management and examination interpretation discussions were had by me with other qualified healthcare professionals as indicated for the patient's care. [facility] ED Course Orders Procedure Category Date Status Time Ct Head/Brain W/O CT 04/11/25 Resulted Contrast 07:52 Ct Cervical Spine W/O CT 04/11/25 Resulted Contrast 07:52 Tetanus,Diphtheria PHA 04/11/25 Complete Tox [Adult] (Diphther 08:00 Lidocaine Hcl 1% 20ml PHA 04/11/25 Complete Vial (Lidocaine Hc 07:53 Cbc With Differential LAB 04/11/25 Complete 08:58 Basic Metabolic Panel LAB 04/11/25 Complete 08:58 Prothrombin Time With LAB 04/11/25 Complete INR 08:58 12 Lead Ekg Tracing- EKG 04/11/25 Logged Technical 09:00 Neurovascular Checks CPOE 04/11/25 Transmitted Q4H 09:04 Hydromorphone 0.5mg PHA 04/11/25 Logged Syg (Dilaudid 0.5mg 10:00 Current Medications Medications (Trade) Dose Ordered Sig/Martin Route PRN Reason Start Time Stop Time Status Last Admin Dose Admin Hydromorphone HCl (DiLAUDid 0.5MG INJ) 0.5 mg Q4H PRN IM SEVERE PAIN (7-10) 04/11/25 10:00 04/16/25 09:59 UNV Lidocaine HCl (Lidocaine HCl 1% 20ml Vial) 20 ml ONCE STAT INJ 04/11/25 07:53 04/11/25 07:56 DC Tetanus/ Diphtheria Toxoids Adsorbed (DiphthERIA-teTANUS TOXOID [ADULT]/ DECAVAC) 0.5 ml ONCE ONCE IM 04/11/25 08:00 04/11/25 08:01 DC 04/11/25 09:07 Vital Signs Date Time Temp Pulse Resp B/P (MAP) Pulse Ox O2 Delivery O2 Flow Rate FiO2 04/11/25 09:48 98.4 70 20 136/74 100 Room Air* 0 21 04/11/25 07:56 98.4 85 20 157/84 100 Room Air* 0 21 04/11/25 07:49 98.4 85 16 157/84 100 Room Air 0 Laceration/Wound Repair Laceration/Wound Repair : Wound Location: face Wound Length (cm): 6 Wound's Depth, Shape: superficial Wound Explored: foreign body removed Irrigated w/ Saline (ccs): 100 Anesthesia: 1% Lidocaine Volume Anesthetic (ccs): 8 Wound Repaired With: sutures Suture Size/Type: 4:0 Number of Sutures: 8 DX & DISP Disposition: Transfer Departure Impression: Primary Impression: C4 cervical fracture Additional Impressions: Facial laceration, Fall Condition: Stable Referrals: BEN LAUREANO MD (PCP) EVER CUELLAR MD Apr 11, 2025 08:51
[2025-04-11 09:07] LABS: IMMATURE GRANULOCYTE ABSOLUTE 0.03 K/uL (0-1); NUCLEATED RED BLOOD CELLS 0.0 % (0.0-0.19); PLATELET COUNT (AUTO) 159 K/uL (130-400); RED BLOOD CELL COUNT(AUTO) 3.98 MIL/uL (4.50-6.20); RED CELL DISTRIBUTION WIDTH 13.8 % (11.0-15.5); WHITE BLOOD COUNT (AUTO) 6.1 K/uL (4.8-10.8)
[2025-04-11 09:22] LABS: CREATININE 0.8 mg/dL (0.5-1.3); GLOMERULAR FILTR. RATE CALC 91.0 mL/min (>90); GLUCOSE,RANDOM 108.0 mg/dL (70-105); SODIUM SERUM 129.0 mmol/L (136-145); UREA NITROGEN, BLOOD 3.0 mg/dL (7-18)
[2025-04-11 09:35] LABS: INR 1.12 (0.85-1.15)
--- NOTE | 2025-04-11 09:42 | NUR ---
TRANSFER TO [facility] [phone] INITIATED BY CHARGE NURSE SPOKE WITH NARA INTAKE NURSE. NANCIE CABELLO
--- NOTE | 2025-04-11 09:54 | NUR ---
TRANSFER , CALL BACK FROM [facility] WITH ACCEPTANCE UNDER DOCTOR JUAN CARLOS MELTON TO ER AND PRIMARY NURSE TO CALL REPORT TO [phone] AND EMS WHEN READY. NANCIE CABELLO
[2025-04-11] MEDS: ORPHENADRINE 60MG/2ML IM ONE (10:15)
--- NOTE | 2025-04-11 10:22 | NUR ---
[facility] notified of transfer
[2025-04-11 10:43] VITALS: BP 107/43; PULSE 75; RESP 20; TEMP 98.4; O2SAT 95
--- NOTE | 2025-04-11 10:44 | NUR ---
REPORT GIVEN TO OSVAL[place] AT [facility] AT THIS TIME.
--- NOTE | 2025-04-11 11:00 | NUR ---
[facility] ARRIVAL TIME
--- NOTE | 2025-04-11 11:09 | NUR ---
PT DEPARTED WITH [facility] AT THIS TIME.
--- NOTE | 2025-04-11 18:51 | EKG ---
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
== END 2025-04-11 11:09 | disposition short-term general hospital (02) ==
LOC: EDH 07:47
DX: S12.300A Unspecified displaced fracture of fourth cervical vertebra, initial encounter for closed fracture (principal); S01.81XA Laceration without foreign body of other part of head, initial encounter; E11.9 Type 2 diabetes mellitus without complications; E78.00 Pure hypercholesterolemia, unspecified; I11.9 Hypertensive heart disease without heart failure; Z79.82 Long term (current) use of aspirin; Z79.899 Other long term (current) drug therapy; Z88.0 Allergy status to penicillin; Z88.5 Allergy status to narcotic agent; Z95.1 Presence of aortocoronary bypass graft; Z95.5 Presence of coronary angioplasty implant and graft; W01.0XXA Fall on same level from slipping, tripping and stumbling without subsequent striking against object, initial encounter; Y93.89 Activity, other specified; Y92.89 Other specified places as the place of occurrence of the external cause; Y99.8 Other external cause status
CPT/HCPCS: 99285; 12053; 70450; 80048; 85025; 85610; 36415; 90714; 72125; 90471; 96372; 93005; J1171; 12014; J2360